=== PATIENT | male | born 1935 | race Caucasian/White ===

== ENCOUNTER 2019-12-25 10:44 | Inpatient (IN) ==
--- NOTE | 2019-12-25 11:14 | Emergency Department Note ---
HPI General Chief complaint: Shortness of Breath/Dyspnea Stated complaint: Short of breath Time Seen by Provider: 12/25/19 11:02 Source: patient Mode of arrival: ambulatory Limitations: no limitations History of Present Illness HPI Narrative: Narrative: 84-year old patient presenting with chief complaint of dyspnea. Patient's dyspnea arose over the course of past 5 days. Patient with associated symptoms of cough, sputum, gradual progression, orthopnea, however denies fever. Past medical history is significant for COPD/cardiovascular disease/CHF/obesity, deconditioning. This patient's dyspnea was/not exacerbated by exertion within 50-100 feet of walking or several minutes of exercise. Also was associated with a nocturnal component. Symptoms are continuous. Additional associated symptoms such as cough, sputum production, nasal congestion, chest pain, peripheral edema, joint swelling, muscle weakness were also inquired. Patient primarily with dyspnea sensation of air hunger/sensation of suffocation. Related Data Previous Rx's Medication Instructions Recorded warfarin 5 mg tablet See Rx Instructions PO QMWF #60 tab 08/12/19 diltiazem HCl 120 mg 240 mg PO QDAY #180 cap 08/25/19 capsule,extended release 24 hr furosemide 80 mg tablet 40 mg PO QDAY #45 tab 08/25/19 lisinopril 5 mg tablet 5 mg PO QDAY #90 tab 08/25/19 potassium chloride 10 mEq 20 meq PO QDAY #180 tab 08/25/19 tablet,extended release trazodone 50 mg tablet 150 mg PO QHS PRN #270 tab 08/25/19 digoxin 250 mcg (0.25 mg) tablet See Rx Instructions .ROUTE 10/01/19 .COMPLEX #68 tab pravastatin 40 mg tablet See Rx Instructions .ROUTE 10/01/19 .COMPLEX #23 tab allopurinol 100 mg tablet 100 mg PO QDAY #90 tab 11/25/19 prednisone 5 mg tablet See Rx Instructions .ROUTE 12/16/19 .COMPLEX #135 tab Allergies Allergy/AdvReac Type Severity Reaction Status Date / Time No Known Drug Intolerances AdvReac Unknown Unknown Verified 12/11/19 09:30 Review of Systems ROS ROS Narrative: Narrative: All systems ED: reviewed and negative except as stated. PFSH Narrative Patient History Narrative: Narrative: Medical/Surgical/Family History All Active Problems (Updated 12/25/19 @ 12:35 by Shar Ricks MD) Pneumonia (Acute) Long-term use of high-risk medication (Acute) detention systemic 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 (Acute) Inflammatory arthropathy (Acute) Hyperuricemia (Acute) Rheumatoid factor negative (Acute) LOUISE positive (Acute) CRP elevated (Acute) Polyarthralgia (Acute) Aortic stenosis (Chronic) Colon polyp (Chronic) Encounter for Health Maintenance Examination in Adult (Chronic) History of surgery (Acute) History of right knee surgery (Acute) History of colonoscopy (Acute) History of cardiac catheterization (Acute) History of angioplasty (Acute) Weight loss (Acute) History of tobacco use (Chronic) Peripheral neuropathy (Acute) Myocardial infarction, old (Acute) Ischemic heart disease, chronic (Chronic) Hypertension (Chronic) Hyperlipidemia (Chronic) Gout (Chronic) Gallstones without obstruction of gallbladder (Chronic) Edema (Chronic) DM type 2 (diabetes mellitus, type 2) (Chronic) Degenerative arthritis (Chronic) Colon polyps (Acute) Closed fracture (Acute) Atrial flutter (Chronic) Atrial fibrillation (Chronic) Anticoagulant long-term use (Acute) Anticoagulant long-term use (Chronic) Medical History (Updated 12/25/19 @ 12:35 by Shar Ricks MD) LOUISE positive (Acute) Anticoagulant long-term use (Chronic) 03/21/2013. Anticoagulant use; chronic Anticoagulant long-term use (Acute) Anticoagulation syndrome. Chronic. Extensive cardiology review with echo an d cardiolite in April of 2010. Last review with Dr. Olsen in April of 2011. Atrial fibrillation (Chronic) 04/11/2013 Atrial flutter (Chronic) Cardioverted in 2004 with recurrence of atrial fibrillation/flutter in [place], relegated to rate control and chronic anticoagulation; extensive ca rdiology review with echo and cardiolite in April of 2010, last review with Dr. Olsen in April of 2011. Closed fracture (Acute) Cervical vetebral fracture; closed. Previous traumatic C2 fracture in November of 2008, followed to stabilizaton Colon polyps (Acute) 2007 hyperplastic polyp. 05/16/12 colonoscopy -- Dr. Howard -- tubular adenomas. 5-year sequence. CRP elevated (Acute) Degenerative arthritis (Chronic) Most symptomatic in left knee 04/2012 DM type 2 (diabetes mellitus, type 2) (Chronic) Adult onset non insulin dependent diabetes. Metformin; mild peripheral neuropathy, taper off med in lieu of age and risk for complications with recent A1C of 5.4. Edema (Chronic) Encounter for Health Maintenance Examination in Adult (Chronic) Gallstones without obstruction of gallbladder (Chronic) Asymptomatic gallstones on ultrasound in 2006 Gout (Chronic) 10/10/2013 History of tobacco use (Chronic) Quit in 1985. Last chest x-ray in [place], does not require routine screening; minimal oral tobacco use - recounseled in this regard. Hyperlipidemia (Chronic) Pravachol Hypertension (Chronic) Hyperuricemia (Acute) Inflammatory arthropathy (Acute) Ischemic heart disease, chronic (Chronic) With distant history of inferior myocardial infarction and angioplasty//cardiolyte 09/2015 roasterman systemic 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 (Acute) Long-term use of high-risk medication (Acute) Myocardial infarction, old (Acute) Distant history of Peripheral neuropathy (Acute) Mild Polyarthralgia (Acute) Rheumatoid factor negative (Acute) Weight loss (Acute) 53 pound purposeful weight loss as of 04/08/12 Surgical History History of angioplasty (Acute) 1985 History of cardiac catheterization (Acute) Evidence on a distant catheterization of a 90% stenosis of a small diagonal branch of the left anterior descending History of colonoscopy (Acute) 05/16/12. 2007 hyperplastic polyp. 05/16/12 Colonoscopy -- Dr. Howard -- tubular adenomas. 5-year sequence History of right knee surgery (Acute) 11/2007 History of surgery (Acute) 1985; stent placement Family History Sister Malignant neoplasm of breast 2 sisters had breast cancer Social History Smoking Status: Former smoker Alcohol Intake Frequency: holiday/special occasion only Substance Use: does not use Exam Narrative Narrative: Narrative: Vital signs and evaluated for evidence of hypoxia which he has on initial presentation; he does not have hemodynamic compromise specifically tachycardia/hypotension General: Alert, interactive, appropriate Head: Atraumatic, normocephalic Eyes: Extraocular movements intact, sclera anicteric, no conjunctival injection Ears: Pinnae normal, no discharge Mouth: Oral mucosa moist, no acute swelling or evidence of infection Nares: No nasal discharge, patent bilaterally Neck: Trachea midline, full range of motion Chest: Symmetrical chest wall rise, breathing normally; patient does have tachypnea feels dyspneic with any exertion Cardiovascular: Patient with excellent perfusion to the extremities; without tachycardia Extremities: Full range of motion joints, no obvious deformities Neuro: Alert, oriented x3, cranial nerves II through XII grossly intact, patient without lateralizing findings such as weakness, or abnormal reflexes Psychiatric: Normal affect, normal mood General Limitations: no limitations Course Vital Signs Vital signs: Vital Signs Temperature 97.3 F 12/25/19 10:46 Pulse Rate 78 12/25/19 10:46 Respiratory Rate 18 12/25/19 10:46 Blood Pressure 142/71 12/25/19 10:46 Pulse Oximetry (%) 91 12/25/19 10:46 Temperature 97.7 F 12/26/19 00:30 Pulse Rate 58 L 12/26/19 00:30 Respiratory Rate 16 12/26/19 00:30 Blood Pressure 119/52 12/26/19 00:30 Pulse Oximetry (%) 92 12/26/19 00:30 [facility] MDM Narrative Medical decision making narrative: Narrative: Acute dyspnea differential diagnosis considered in this case included HI, heart failure, cardiac tamponade, bronchospasm, pulmonary embolism, pneumothorax, pneumonia or infection, and upper airway obstruction. After review of chart and patient history/physical exam/labs as well as imaging the differential diagnosis addressed was acute hypoxic respiratory failure, COPD exacerbation, pneumonia, sepsis, pulmonary edema, pneumothorax, metabolic acidosis, acute respiratory distress syndrome, panic attack, airflow obstruction, restrictive lung disease, aspiration, congestive heart failure, hypercapnia, influenza, bronchitis, upper respiratory infection, pulmonary embolism, cardiac tamponade, valvular obstruction, HI/ACS, and arrhythmia in my medical opinion this patient has dyspnea that reasonably does require admission to the hospital. Patient with hypoxia on presentation requiring 2 L of oxygen to maintain his sats. Patient with profound dyspnea with any exertion. Patient does have elevation of his BNP however his chest x-ray and white count suggest pneumonia. Blood cultures and Rocephin are provided did not give him significant fluid secondary to elevated BNP and concern for congestive heart failure. Lab Data Result diagrams: 12/25/19 11:03 12/25/19 11:11 Labs: Lab Results 12/25/19 12/25/19 12/25/19 Range/Units 11:03 11:11 11:11 WBC 12.0 H (4.5-11.0) K/mcL RBC 4.04 L (4.50-5.90) M/mcL Hgb 13.9 (13.5-16.5) g/dL Hct 41.2 (41.0-55.0) % MCV 102.0 H (80.0-100.0) fL MCH 34.4 H (26.0-34.0) pg MCHC 33.7 (31.0-36.0) g/dL RDW 15.8 H (11.5-14.5) % Plt Count 139 L (140-440) K/mcL MPV 9.0 (7.4-10.4) fL Neut % (Auto) 90.8 H (38.0-78.0) % Lymph % (Auto) 4.4 L (15.0-49.0) % Bowie % (Auto) 3.7 (1.0-12.0) % Eos % (Auto) 0.3 (0.0-7.0) % Baso % (Auto) 0.8 (0.0-2.0) % Lymph # (Auto) 0.53 L (1.50-4.80) K/mcL Bowie # (Auto) 0.44 (0.10-0.90) K/mcL Eos # (Auto) 0.03 (0.00-0.70) K/mcL Baso # (Auto) 0.09 (0.00-0.20) K/mcL Absolute Neutrophils 10.89 H (1.80-8.00) K/mcL PT (11.9-14.5) sec INR (0.9-1.1) ABG Methemoglobin (0.4-1.5) % VBG pH (7.32-7.42) U VBG pCO2 (41.0-51.0) mmHg VBG pO2 (25.0-40.0) mmHg VBG HCO3 (24.0-28.0) mmol/L VBG Total CO2 (25.0-29.0) mmol/L VBG O2 Saturation (40.0-70.0) % VBG Base Excess (-2-3) VBG Lactic Acid 1.0 (0.5-2.0) mmol/L Carboxyhemoglobin (0.0-1.5) % THgb Total Hemoglobin (13.5-16.5) gm/Dl Sodium 135 (133-145) mmol/L Potassium 4.7 (3.3-5.1) mmol/L Chloride 98 (96-108) mmol/L Carbon Dioxide 24 (22-30) mmol/L Anion Gap 13.0 (8.0-16.0) BUN 30 H (8-23) mg/dL Creatinine 1.2 (0.7-1.2) mg/dL GFR Calculation 56 Glucose 248 H (70-105) mg/dL Calcium 9.2 (8.6-10.4) mg/dL Total Bilirubin 0.8 (0.1-1.0) mg/dL AST 26 (<40) U/L ALT 20 (<40) U/L Alkaline Phosphatase 56 (39-117) U/L Troponin T (<0.03) ng/mL NT-Pro-B Natriuret Pep 2177.0 H (<450.0) pg/mL Total Protein 7.3 (5.9-8.4) gm/dL Albumin 4.4 (3.2-5.2) gm/dL Globulin 2.9 (2.2-3.7) gm/dL Albumin/Globulin Ratio 1.5 (1.0-2.3) Procalcitonin (<0.10) ng/mL Digoxin ng/mL SARS-CoV-2 (PCR) (Negative) 12/25/19 12/25/19 12/25/19 Range/Units 11:11 11:11 11:11 WBC (4.5-11.0) K/mcL RBC (4.50-5.90) M/mcL Hgb (13.5-16.5) g/dL Hct (41.0-55.0) % MCV (80.0-100.0) fL MCH (26.0-34.0) pg MCHC (31.0-36.0) g/dL RDW (11.5-14.5) % Plt Count (140-440) K/mcL MPV (7.4-10.4) fL Neut % (Auto) (38.0-78.0) % Lymph % (Auto) (15.0-49.0) % Bowie % (Auto) (1.0-12.0) % Eos % (Auto) (0.0-7.0) % Baso % (Auto) (0.0-2.0) % Lymph # (Auto) (1.50-4.80) K/mcL Bowie # (Auto) (0.10-0.90) K/mcL Eos # (Auto) (0.00-0.70) K/mcL Baso # (Auto) (0.00-0.20) K/mcL Absolute Neutrophils (1.80-8.00) K/mcL PT (11.9-14.5) sec INR (0.9-1.1) ABG Methemoglobin 0.1 L (0.4-1.5) % VBG pH 7.42 (7.32-7.42) U VBG pCO2 40.8 L (41.0-51.0) mmHg VBG pO2 166.9 H (25.0-40.0) mmHg VBG HCO3 25.6 (24.0-28.0) mmol/L VBG Total CO2 26.9 (25.0-29.0) mmol/L VBG O2 Saturation 91.7 H (40.0-70.0) % VBG Base Excess 1 (-2-3) VBG Lactic Acid (0.5-2.0) mmol/L Carboxyhemoglobin 7.3 H (0.0-1.5) % THgb Total Hemoglobin 13.7 (13.5-16.5) gm/Dl Sodium (133-145) mmol/L Potassium (3.3-5.1) mmol/L Chloride (96-108) mmol/L Carbon Dioxide (22-30) mmol/L Anion Gap (8.0-16.0) BUN (8-23) mg/dL Creatinine (0.7-1.2) mg/dL GFR Calculation Glucose (70-105) mg/dL Calcium (8.6-10.4) mg/dL Total Bilirubin (0.1-1.0) mg/dL AST (<40) U/L ALT (<40) U/L Alkaline Phosphatase (39-117) U/L Troponin T < 0.01 (<0.03) ng/mL NT-Pro-B Natriuret Pep (<450.0) pg/mL Total Protein (5.9-8.4) gm/dL Albumin (3.2-5.2) gm/dL Globulin (2.2-3.7) gm/dL Albumin/Globulin Ratio (1.0-2.3) Procalcitonin 0.07 (<0.10) ng/mL Digoxin ng/mL SARS-CoV-2 (PCR) (Negative) 12/25/19 12/25/19 12/25/19 Range/Units 11:11 12:35 13:07 WBC (4.5-11.0) K/mcL RBC (4.50-5.90) M/mcL Hgb (13.5-16.5) g/dL Hct (41.0-55.0) % MCV (80.0-100.0) fL MCH (26.0-34.0) pg MCHC (31.0-36.0) g/dL RDW (11.5-14.5) % Plt Count (140-440) K/mcL MPV (7.4-10.4) fL Neut % (Auto) (38.0-78.0) % Lymph % (Auto) (15.0-49.0) % Bowie % (Auto) (1.0-12.0) % Eos % (Auto) (0.0-7.0) % Baso % (Auto) (0.0-2.0) % Lymph # (Auto) (1.50-4.80) K/mcL Bowie # (Auto) (0.10-0.90) K/mcL Eos # (Auto) (0.00-0.70) K/mcL Baso # (Auto) (0.00-0.20) K/mcL Absolute Neutrophils (1.80-8.00) K/mcL PT 21.5 H (11.9-14.5) sec INR 1.9 H (0.9-1.1) ABG Methemoglobin (0.4-1.5) % VBG pH (7.32-7.42) U VBG pCO2 (41.0-51.0) mmHg VBG pO2 (25.0-40.0) mmHg VBG HCO3 (24.0-28.0) mmol/L VBG Total CO2 (25.0-29.0) mmol/L VBG O2 Saturation (40.0-70.0) % VBG Base Excess (-2-3) VBG Lactic Acid (0.5-2.0) mmol/L Carboxyhemoglobin (0.0-1.5) % THgb Total Hemoglobin (13.5-16.5) gm/Dl Sodium (133-145) mmol/L Potassium (3.3-5.1) mmol/L Chloride (96-108) mmol/L Carbon Dioxide (22-30) mmol/L Anion Gap (8.0-16.0) BUN (8-23) mg/dL Creatinine (0.7-1.2) mg/dL GFR Calculation Glucose (70-105) mg/dL Calcium (8.6-10.4) mg/dL Total Bilirubin (0.1-1.0) mg/dL AST (<40) U/L ALT (<40) U/L Alkaline Phosphatase (39-117) U/L Troponin T (<0.03) ng/mL NT-Pro-B Natriuret Pep (<450.0) pg/mL Total Protein (5.9-8.4) gm/dL Albumin (3.2-5.2) gm/dL Globulin (2.2-3.7) gm/dL Albumin/Globulin Ratio (1.0-2.3) Procalcitonin (<0.10) ng/mL Digoxin 1.3 ng/mL SARS-CoV-2 (PCR) Negative (Negative) Discharge Plan Patient/Caregiver Discharge Instructions Pt seen by DEPENDENCY CASE MANAGER/PA only: No Clinical Impression: Pneumonia Patient Disposition: Xfer As Inpt ([facility]) Condition: Serious Discharge Date/Time: 12/25/19 15:07 Discharge Location: [facility]
[2019-12-25 11:41] LABS: Basophils # (Auto) 0.09 K/mcL (0.00-0.20); Basophils % (Auto) 0.8 % (0.0-2.0); Eosinophils # (Auto) 0.03 K/mcL (0.00-0.70); Eosinophils % (Auto) 0.3 % (0.0-7.0); Hematocrit 41.2 % (41.0-55.0); Hemoglobin 13.9 g/dL (13.5-16.5); Lymphocytes # (Auto) 0.53 K/mcL (1.50-4.80); Lymphocytes % (Auto) 4.4 % (15.0-49.0); Mean Corpuscular HGB Conc 33.7 g/dL (31.0-36.0); Monocytes # (Auto) 0.44 K/mcL (0.10-0.90); Monocytes % (Auto) 3.7 % (1.0-12.0); Neutrophils % (Auto) 90.8 % (38.0-78.0); Platelet Count 139 K/mcL (140-440); RBC 4.04 M/mcL (4.50-5.90); Red Cell Distribution Width 15.8 % (11.5-14.5)
--- NOTE | 2019-12-25 11:42 | XRay Report ---
CLINICAL INFORMATION: CP/dyspnea COMPARISON: None. FINDINGS: Heart is moderately enlarged. Mediastinum is normal. Pulmonary vessels are normal for technique. Moderate right basilar infiltrate appreciated. There is also a moderate patchy infiltrate in the left midlung and base. Small right pleural effusion noted. IMPRESSION: Moderate right basilar infiltrate. Moderate patchy infiltrate left midlung and base. Small right pleural effusion Interpreted and Authenticated by: Manuel Rm 12/25/19
[2019-12-25 11:44] LABS: ABG Methemoglobin 0.1 % (0.4-1.5); Total Hemoglobin 13.7 gm/Dl (13.5-16.5); VBG Base Excess 1 (-2-3); VBG HCO3 25.6 mmol/L (24.0-28.0); VBG Oxygen Saturation 91.7 % (40.0-70.0); VBG PCO2 40.8 mmHg (41.0-51.0); VBG PH 7.42 U (7.32-7.42); VBG PO2 166.9 mmHg (25.0-40.0); VBG Total CO2 26.9 mmol/L (25.0-29.0)
[2019-12-25 12:10] LABS: ALT/SGPT 20 U/L (<40); AST/SGOT 26 U/L (<40); Albumin 4.4 gm/dL (3.2-5.2); Albumin/Globulin Ratio 1.5 (1.0-2.3); Alkaline Phosphatase 56 U/L (39-117); Bilirubin,Total 0.8 mg/dL (0.1-1.0); Blood Urea Nitrogen 30 mg/dL (8-23); Calcium 9.2 mg/dL (8.6-10.4); Carbon Dioxide 24 mmol/L (22-30); Chloride 98 mmol/L (96-108); Globulin 2.9 gm/dL (2.2-3.7); Glomerular Filtration Rate 56; Glucose 248 mg/dL (70-105)
[2019-12-25] MEDS ORDERED: cefTRIAXone 2 GM VIAL IV ONE (12:30)
--- NOTE | 2019-12-25 13:29 | Internal Med History&Physical ---
HPI History of Present Illness Patient information: Note initiated : 12/25/19 at 1:21 pm Service Date, if different from initiated Date: [] Patient: Shelby Ruff a 84 y/o M admitted on for Short of breath. Chief Complaint: [] History of present illness: Mr. Ruff is a 84 year old M Presents to the ED with shortness of breath and fatigue. Patient states that Sunday he was feeling fine and then noticed on Sunday when he was helping some friends dress a deer that he just felt fatigued and opted to let them dress the deer. And then he started developing shortness of breath. Denies any cough fevers or chills. He has just been feeling really weak and tired and the shortness of breath although he feels it has empirically gotten worse over single day been pretty consistent and has not gotten a better and thus today he presented to the ED. In the ED was found of a mild leukocytosis and oxygen saturation low 80s on room air. Chest x-ray with bilateral infiltrate worse on the right. Covid pending. Started on prednisone several months ago for gout flare and is tapered down to 7.5 daily with . Review of Systems: Pertinent positives as above. Denies headache/fever/chills/nausea/vomiting/chest or abdominal pain//diarrhea. 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) Inflammatory arthropathy (Acute) Hyperuricemia (Acute) Rheumatoid factor negative (Acute) LOUISE positive (Acute) CRP elevated (Acute) Polyarthralgia (Acute) Aortic stenosis (Chronic) Colon polyp (Chronic) Encounter for Health Maintenance Examination in Adult (Chronic) History of surgery (Acute) History of right knee surgery (Acute) History of colonoscopy (Acute) History of cardiac catheterization (Acute) History of angioplasty (Acute) Weight loss (Acute) History of tobacco use (Chronic) Peripheral neuropathy (Acute) Myocardial infarction, old (Acute) Ischemic heart disease, chronic (Chronic) Hypertension (Chronic) Hyperlipidemia (Chronic) Gout (Chronic) Gallstones without obstruction of gallbladder (Chronic) Edema (Chronic) DM type 2 (diabetes mellitus, type 2) (Chronic) Degenerative arthritis (Chronic) Colon polyps (Acute) Closed fracture (Acute) Atrial flutter (Chronic) Atrial fibrillation (Chronic) Anticoagulant long-term use (Acute) Anticoagulant long-term use (Chronic) Medical History (Updated 12/25/19 @ 12:35 by Shar Ricks MD) LOUISE positive (Acute) Anticoagulant long-term use (Chronic) 03/21/2013. Anticoagulant use; chronic Anticoagulant long-term use (Acute) Anticoagulation syndrome. Chronic. Extensive cardiology review with echo and cardiolite in April of 2010. Last review with Dr. Olsen in April of 2011. Atrial fibrillation (Chronic) 04/11/2013 Atrial flutter (Chronic) Cardioverted in 2004 with recurrence of atrial fibrillation/flutter in [place], relegated to rate control and chronic anticoagulation; extensive cardiology review with echo and cardiolite in April of 2010, last review with Dr. Olsen in April of 2011. Closed fracture (Acute) Cervical vetebral fracture; closed. Previous traumatic C2 fracture in November of 2008, followed to stabilizaton Colon polyps (Acute) 2007 hyperplastic polyp. 05/16/12 colonoscopy -- Dr. Howard -- tubular adenomas. 5-year sequence. CRP elevated (Acute) Degenerative arthritis (Chronic) Most symptomatic in left knee 04/2012 DM type 2 (diabetes mellitus, type 2) (Chronic) Adult onset non insulin dependent diabetes. Metformin; mild peripheral neuropathy, taper off med in lieu of age and risk for complications with recent A1C of 5.4. Edema (Chronic) Encounter for Health Maintenance Examination in Adult (Chronic) Gallstones without obstruction of gallbladder (Chronic) Asymptomatic gallstones on ultrasound in 2006 Gout (Chronic) 10/10/2013 History of tobacco use (Chronic) Quit in 1985. Last chest x-ray in [place], does not require routine screening; minimal oral tobacco use - recounseled in this regard. 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 2007 hyperplastic polyp. 05/16/12 Colonoscopy -- Dr. Howard -- tubular adenomas. 5-year sequence History of right knee surgery (Acute) 11/2007 History of surgery (Acute) 1985; stent placement Family History Sister Malignant neoplasm of breast 2 sisters had breast cancer Social History household members: spouse housing: house marital status: occupational status: retired occupation: [employer] smoking status: Former smoker alcohol intake frequency: holiday/special occasion only substance use type: does not use MEDS/ALLERGIES Home Medications and Allergies Home Medications Medication Instructions Recorded Confirmed Type tizanidine 4 mg tablet 4 mg PO Q8H PRN #30 tab 08/06/19 12/25/19 Rx warfarin 5 mg tablet See Rx Instructions PO QMWF #60 tab 08/12/19 12/25/19 Rx diltiazem HCl 120 mg 240 mg PO QDAY #180 cap 08/25/19 12/25/19 Rx capsule,extended release 24 hr furosemide 80 mg tablet 40 mg PO QDAY #45 tab 08/25/19 12/25/19 Rx lisinopril 5 mg tablet 5 mg PO QDAY #90 tab 08/25/19 12/25/19 Rx potassium chloride 10 mEq 20 meq PO QDAY #180 tab 08/25/19 12/25/19 Rx tablet,extended release trazodone 50 mg tablet 150 mg PO QHS PRN #270 tab 08/25/19 12/25/19 Rx digoxin 250 mcg (0.25 mg) tablet See Rx Instructions .ROUTE 10/01/19 12/25/19 Rx .COMPLEX #68 tab pravastatin 40 mg tablet See Rx Instructions .ROUTE 10/01/19 12/25/19 Rx .COMPLEX #23 tab allopurinol 100 mg tablet 100 mg PO QDAY #90 tab 11/25/19 12/25/19 Rx prednisone 5 mg tablet See Rx Instructions .ROUTE 12/16/19 12/25/19 Rx .COMPLEX #135 tab Allergies Allergy/AdvReac Type Severity Reaction Status Date / Time No Known Drug Intolerances AdvReac Unknown Unknown Verified 12/11/19 09:30 EXAM Constitutional Vitals: Temp Pulse Resp BP Pulse Ox 97.3 F 69 18 123/62 95 12/25/19 10:46 12/25/19 12:42 12/25/19 12:42 12/25/19 12:42 12/25/19 12:42 Exam: General: Alert, Awake, No acute Distress Eyes/N/T: EOMI, PERRL, Head/Neck: neck supple, normocephalic atraumatic CV: Regular with occasional irregularity 3/6SM Pulm: Clear b/l, no wheezing/rhonchi/rales Abd: soft, nontender, +BS x4 Ext: no clubbing/cyanosis, 1-2+ b/l LE chronic edema Neuro: Alert, no focal deficits, moves all extremities, CN 2-12 grossly intact, symmetrical strength b/l upper/lower, sensations intact b/l upper/lower Skin: warm/dry DATA Data Completed and Pending Labs: Labs from last 24 hours 12/25/19 12/25/19 12/25/19 13:07 12:35 11:11 WBC RBC Hgb Hct MCV MCH MCHC RDW Plt Count MPV Neut % (Auto) Lymph % (Auto) [place] % (Auto) Eos % (Auto) Baso % (Auto) Lymph # (Auto) [place] # (Auto) Eos # (Auto) Baso # (Auto) Absolute Neutrophils PT Pending INR Pending ABG Methemoglobin VBG pH VBG pCO2 VBG pO2 VBG HCO3 VBG Total CO2 VBG O2 Saturation VBG Base Excess VBG Lactic Acid Carboxyhemoglobin Total Hemoglobin Sodium Potassium Chloride Carbon Dioxide Anion Gap BUN Creatinine GFR Calculation Glucose Calcium Total Bilirubin AST ALT Alkaline Phosphatase Troponin T NT-Pro-B Natriuret Pep Total Protein Albumin Globulin Albumin/Globulin Ratio Procalcitonin Digoxin Pending Digoxin Dose Pending Digox Last Dose Time Pending SARS-CoV-2 (PCR) Negative 12/25/19 12/25/1912/24/20 11:11 11:11 11:11 WBC RBC Hgb Hct MCV MCH MCHC RDW Plt Count MPV Neut % (Auto) Lymph % (Auto) [place] % (Auto) Eos % (Auto) Baso % (Auto) Lymph # (Auto) [place] # (Auto) Eos # (Auto) Baso # (Auto) Absolute Neutrophils PT INR ABG Methemoglobin 0.1 L VBG pH 7.42 VBG pCO2 40.8 L VBG pO2 166.9 H VBG HCO3 25.6 VBG Total CO2 26.9 VBG O2 Saturation 91.7 H VBG Base Excess 1 VBG Lactic Acid Carboxyhemoglobin 7.3 H Total Hemoglobin 13.7 Sodium Potassium Chloride Carbon Dioxide Anion Gap BUN Creatinine GFR Calculation Glucose Calcium Total Bilirubin AST ALT Alkaline Phosphatase Troponin T < 0.01 NT-Pro-B Natriuret Pep Total Protein Albumin Globulin Albumin/Globulin Ratio Procalcitonin Pending Digoxin Digoxin Dose Digox Last Dose Time SARS-CoV-2 (PCR) 12/25/19 12/25/19 12/25/19 11:11 11:11 11:03 WBC 12.0 H RBC 4.04 L Hgb 13.9 Hct 41.2 MCV 102.0 H MCH 34.4 H MCHC 33.7 RDW 15.8 H Plt Count 139 L MPV 9.0 Neut % (Auto) 90.8 H Lymph % (Auto) 4.4 L [place] % (Auto) 3.7 Eos % (Auto) 0.3 Baso % (Auto) 0.8 Lymph # (Auto) 0.53 L [place] # (Auto) 0.44 Eos # (Auto) 0.03 Baso # (Auto) 0.09 Absolute Neutrophils 10.89 H PT INR ABG Methemoglobin VBG pH VBG pCO2 VBG pO2 VBG HCO3 VBG Total CO2 VBG O2 Saturation VBG Base Excess VBG Lactic Acid 1.0 Carboxyhemoglobin Total Hemoglobin Sodium 135 Potassium 4.7 Chloride 98 Carbon Dioxide 24 Anion Gap 13.0 BUN 30 H Creatinine 1.2 GFR Calculation 56 Glucose 248 H Calcium 9.2 Total Bilirubin 0.8 AST 26 ALT 20 Alkaline Phosphatase 56 Troponin T NT-Pro-B Natriuret Pep 2177.0 H Total Protein 7.3 Albumin 4.4 Globulin 2.9 Albumin/Globulin Ratio 1.5 Procalcitonin Digoxin Digoxin Dose Digox Last Dose Time SARS-CoV-2 (PCR) A/P Narrative A/P Narrative: A: *Pneumonia: -covid neg *Acute hypoxic respiratory failure: -2L *DM: Diet controlled *Chronic atrial fibrillation: On diltiazem digoxin and warfarin *HTN: On lisinopril/Lasix *h/o CAD w/angioplasty: *Anemia, chronic microcytic: *Obesity: *h/o gout: on allopurinol and tapering dose of prednisone * P: -Rocephin/azithromycin -RVP/myco/strep pending -Pulmonary toilet, as needed nebs -O2 support and wean as able -Continue home prednisone, SSI -Continue home digoxin and diltiazem and lisinopril - -B12/folate -PT OT -ppx: Warfarin per pharmacy DNI Time Spent With Patient Time: Total time spent is greater than 50% in coordination of care (as document ed) at patient's floor/unit and/or counseling patient:
[2019-12-25 13:42] LABS: INR 1.9 (0.9-1.1); Prothrombin Time 21.5 sec (11.9-14.5)
[2019-12-25 14:50] LABS: Digoxin 1.3 ng/mL
[2019-12-25] MEDS ORDERED: LACTULOSE 20 GM/30 ML ORAL.SOL PO PRN (15:37)
[2019-12-25] MEDS ORDERED: POLYETHYLENE GLYCOL 3350 17 GM PACKET PO PRN (15:37)
[2019-12-25] MEDS ORDERED: IPRATROPIUM/ALBUTEROL 3 ML AMPUL.NEB NEB ONE (15:37)
[2019-12-25] MEDS ORDERED: ONDANSETRON 4 MG/2 ML VIAL IV PRN (15:37)
[2019-12-25] MEDS ORDERED: POTASSIUM CHLORIDE 40 MEQ in DEXTROSE 5% IN WATER 500 ML IV PRN (15:37)
[2019-12-25] MEDS ORDERED: tiZANidine 4 MG TABLET PO PRN (15:37)
[2019-12-25] MEDS ORDERED: MAGNESIUM SULFATE 2 GM/50 ML BAG IV PRN (15:37)
[2019-12-25] MEDS ORDERED: ACETAMINOPHEN 325 MG TABLET PO PRN (15:37)
[2019-12-25] MEDS ORDERED: SENNOSIDES 1 TABLET PO PRN (15:37)
[2019-12-25] MEDS ORDERED: POTASSIUM CHLORIDE 20 MEQ TABLET PO PRN ×2 (15:37)
[2019-12-25] MEDS ORDERED: IPRATROPIUM/ALBUTEROL 3 ML AMPUL.NEB NEB PRN (15:37)
[2019-12-25] MEDS: 0.9 % SODIUM CHLORIDE 10 ML SYRINGE IV SCH ×2 (16:15→20:06)
[2019-12-25] MEDS: AZITHROMYCIN 500 MG in DEXTROSE 5% IN WATER 250 ML IV SCH (16:15)
[2019-12-25] MEDS: SIMVASTATIN 10 MG TABLET PO SCH ×2 (20:14→20:18)
[2019-12-25] MEDS: DOCUSATE SODIUM 100 MG CAPSULE PO SCH (20:14)
[2019-12-25] MEDS: traZODone HCL 50 MG TABLET PO PRN (20:24)
[2019-12-26] MEDS: 0.9 % SODIUM CHLORIDE 10 ML SYRINGE IV SCH ×3 (04:10→22:00)
[2019-12-26 06:48] LABS: Basophils # (Auto) 0.11 K/mcL (0.00-0.20); Basophils % (Auto) 1.1 % (0.0-2.0); Eosinophils # (Auto) 0.22 K/mcL (0.00-0.70); Eosinophils % (Auto) 2.1 % (0.0-7.0); Hematocrit 35.3 % (41.0-55.0); Hemoglobin 11.8 g/dL (13.5-16.5); Lymphocytes # (Auto) 1.84 K/mcL (1.50-4.80); Lymphocytes % (Auto) 17.9 % (15.0-49.0); Mean Cell Volume 103.2 fL (80.0-100.0); Mean Corpuscular HGB Conc 33.4 g/dL (31.0-36.0); Mean Platelet Volume 9.6 fL (7.4-10.4); Monocytes % (Auto) 5.8 % (1.0-12.0); Neutrophils % (Auto) 73.1 % (38.0-78.0); Platelet Count 116 K/mcL (140-440); RBC 3.42 M/mcL (4.50-5.90); Red Cell Distribution Width 15.9 % (11.5-14.5); WBC 10.3 K/mcL (4.5-11.0)
[2019-12-26 07:33] LABS: ALT/SGPT 15 U/L (<40); AST/SGOT 19 U/L (<40); Albumin 3.6 gm/dL (3.2-5.2); Albumin/Globulin Ratio 1.5 (1.0-2.3); Alkaline Phosphatase 39 U/L (39-117); Bilirubin,Direct < 0.2 mg/dL (<0.3); Bilirubin,Total 0.6 mg/dL (0.1-1.0); Blood Urea Nitrogen 24 mg/dL (8-23); Calcium 8.7 mg/dL (8.6-10.4); Carbon Dioxide 29 mmol/L (22-30); Chloride 100 mmol/L (96-108); Globulin 2.4 gm/dL (2.2-3.7); Glomerular Filtration Rate 69; Glucose 134 mg/dL (70-105); Lactate Dehydrogenase 226 U/L (135-225); Phosphorous 3.4 mg/dL (2.5-4.5); Triglycerides 84 mg/dL (<150); Uric Acid 6.7 mg/dL (2.5-8.0)
[2019-12-26 07:45] LABS: INR 2.3 (0.9-1.1); Prothrombin Time 25.6 sec (11.9-14.5)
[2019-12-26] MEDS: FUROSEMIDE 40 MG TABLET PO SCH (07:47)
[2019-12-26] MEDS: LISINOPRIL 5 MG TABLET PO SCH (07:47)
[2019-12-26] MEDS: DOCUSATE SODIUM 100 MG CAPSULE PO SCH ×2 (07:47→20:19)
[2019-12-26] MEDS: DILTIAZEM 240 MG CAP.XL.24H PO SCH (07:47)
[2019-12-26] MEDS: predniSONE 5 MG TABLET PO SCH (07:48)
[2019-12-26] MEDS: ALLOPURINOL 100 MG TABLET PO SCH (07:48)
[2019-12-26] MEDS: POTASSIUM CHLORIDE 10 MEQ TABLET PO SCH (07:48)
[2019-12-26] MEDS: cefTRIAXone 2 GM in DEXTROSE 5% IN WATER 50 ML IV SCH (07:52)
--- NOTE | 2019-12-26 07:53 | Internal Med Progress Note ---
SUBJECTIVE Subjective Patient information: Note initiated : 12/26/19 at 7:49 am Service Date, if different from initiated Date: [] Patient: Shelby Ruff a 84 y/o M admitted on 12/25/19 for Short of breath. Chief Complaint: [] Interval history: History of present illness: Mr. Ruff is a 84 year old M Presents to the ED with shortness of breath and fatigue. Patient states that Sunday he was feeling fine and then noticed on Sunday when he was helping some friends dress a deer that he just felt fatigued and opted to let them dress the deer. And then he started developing shortness of breath. Denies any cough fevers or chills. He has just been feeling really weak and tired and the shortness of breath although he feels it has empirically gotten worse over single day been pretty consistent and has not gotten a better and thus today he presented to the ED. In the ED was found of a mild leukocytosis and oxygen saturation low 80s on room air. Chest x-ray with bilateral infiltrate worse on the right. Covid pending. Started on prednisone several months ago for gout flare and is tapered down to 7.5 daily with . 12/25 Patient still requiring oxygen several liters but states he feels better today denies shortness of breath. Occasional cough. Leukocytosis improved. Review of Systems: denies headache/fever/chills/nausea/vomiting/chest or abdominal pain/diarrhea. Otherwise see above. Constitutional Vitals: Vital Signs Temp Pulse Resp BP Pulse Ox 97 F 71 20 113/59 92 12/26/19 04:00 12/26/19 04:00 12/26/19 04:00 12/26/19 04:00 12/26/19 04:00 Period Temp Pulse Resp BP Sys/Chang Pulse Ox Last 24 Hr 96 F-97.8 F 48-96 16-25 113-142/51-71 79-97 Intake and Output 12/25/19 12/26/19 12/26/19 21:59 05:59 13:59 Intake Total 670 420 Output Total 100 Balance 570 420 Weight 101.559 kg Intake & Output: Intake & Output 12/25/19 12/26/19 12/26/19 21:59 05:59 13:59 Intake Total 670 420 Output Total 100 Balance 570 420 Weight 101.559 kg Intake: IV 250 Zithromax 500 mg In Dextrose 5% 250 in Water 250 ml @ 250 mls/hr IV DAILY [facility] Rx#:[id number] Oral 420 420 Output: Void Amount 100 Other: Meal Dinner Percent of Meal Consumed 50% Feeding Ability Independent Urine Color Bright Yellow Urine Odor Normal # Voids 2 Exam: General: Alert, Awake, No acute Distress Eyes/N/T: EOMI, Head/Neck: neck supple, CV: Regular with occasional irregularity 3/6SM Pulm: right side diminished with rhonchi, no wheezing Abd: soft, nontender, +BS x4 Ext: no clubbing/cyanosis, 1-2+ b/l LE chronic edema Neuro: Alert, no focal deficits, moves all extremities, Skin: warm/dry OBJ DATA Labs CBC & Chem 7: 12/26/19 05:22 12/26/19 05:22 Labs: Abnormal Lab Results 12/26/19 12/26/19 12/26/19 05:22 05:22 05:22 WBC RBC 3.42 L Hgb 11.8 L Hct 35.3 L MCV 103.2 H MCH 34.5 H RDW 15.9 H Plt Count 116 L Neut % (Auto) Lymph % (Auto) Lymph # (Auto) Absolute Neutrophils PT 25.6 H INR 2.3 H ABG Methemoglobin VBG pCO2 VBG pO2 VBG O2 Saturation Carboxyhemoglobin Anion Gap 6.0 L BUN 24 H Glucose 134 H Lactate Dehydrogenase 226 H NT-Pro-B Natriuret Pep Vitamin B12 12/25/19 12/25/19 12/25/19 16:03 13:07 11:11 WBC RBC Hgb Hct MCV MCH RDW Plt Count Neut % (Auto) Lymph % (Auto) Lymph # (Auto) Absolute Neutrophils PT 21.5 H INR 1.9 H ABG Methemoglobin 0.1 L VBG pCO2 40.8 L VBG pO2 166.9 H VBG O2 Saturation 91.7 H Carboxyhemoglobin 7.3 H Anion Gap BUN Glucose Lactate Dehydrogenase NT-Pro-B Natriuret Pep Vitamin B12 1599.0 H 12/25/19 12/25/19 11:11 11:03 WBC 12.0 H RBC 4.04 L Hgb Hct MCV 102.0 H MCH 34.4 H RDW 15.8 H Plt Count 139 L Neut % (Auto) 90.8 H Lymph % (Auto) 4.4 L Lymph # (Auto) 0.53 L Absolute Neutrophils 10.89 H PT INR ABG Methemoglobin VBG pCO2 VBG pO2 VBG O2 Saturation Carboxyhemoglobin Anion Gap BUN 30 H Glucose 248 H Lactate Dehydrogenase NT-Pro-B Natriuret Pep 2177.0 H Vitamin B12 Meds: Medications Acetaminophen (Tylenol) 650 mg PO Q6HP PRN PRN Reason: PAIN/FEVER > 101 Albuterol/Ipratropium (Duoneb) 3 ml NEB Q4HP PRN PRN Reason: Shortness Of Breath Allopurinol (Zyloprim) 100 mg PO QDAY [facility] Digoxin (Lanoxin) 125 mcg PO Q48H [facility] Digoxin (Lanoxin) 250 mcg PO Q48H [facility] Diltiazem HCl (Cardizem Cd) 240 mg PO DAILY [facility] Docusate Sodium (Colace) 100 mg PO BID [facility] Last Admin: 12/25/19 20:14 Dose: 100 mg Documented by: Furosemide (Lasix) 40 mg PO DAILY [facility] Potassium Chloride 40 meq/ (Dextrose) 520 mls @ 130 mls/hr IV UD PRN PRN Reason: Potassium < 3 Magnesium Sulfate (Magnesium Sulfate) 2 gm in 50 mls @ 50 mls/hr IV UD PRN PRN Reason: Magnesium </= 1.6 Ceftriaxone Sodium 2 gm/ (Dextrose) 50 mls @ 100 mls/hr IV DAILY [facility]; Protocol Azithromycin 500 mg/ Dextrose 250 mls @ 250 mls/hr IV DAILY [facility]; Protocol Stop: 12/27/19 09:59 Last Infusion: 12/25/19 17:30 Dose: Infused Documented by: Lactulose (Cephulac) 20 gm PO DAILYP PRN PRN Reason: Constipation Lisinopril (Zestril) 5 mg PO QDAY [facility] Ondansetron HCl (Zofran) 4 mg IV Q4HP PRN PRN Reason: Nausea And Vomiting Polyethylene Glycol (Miralax) 17 gm PO DAILYP PRN PRN Reason: Constipation Potassium Chloride (Kdur) 20 meq PO QAMCC [facility] Potassium Chloride (Kdur) 40 meq PO UD PRN PRN Reason: Potssium is 3-3.5 Potassium Chloride (Kdur) 40 meq PO UD PRN PRN Reason: Potassium < 3 Prednisone (Prednisone) 7.5 mg PO [facility] Senna (Senokot) 2 tab PO DAILYP PRN PRN Reason: Constipation Simvastatin (Zocor) 5 mg PO HS [facility] Last Admin: 12/25/19 20:18 Dose: Not Given Documented by: Sodium Chloride (Saline Flush) 10 ml IV Q8 [facility] Last Admin: 12/26/19 04:10 Dose: 10 ml Documented by: Tizanidine HCl (Zanaflex) 4 mg PO Q8HP PRN PRN Reason: muscle spasticity Trazodone HCl (Desyrel) 150 mg PO HSP PRN PRN Reason: insomnia Last Admin: 12/25/19 20:24 Dose: 150 mg Documented by: Warfarin Sodium (Coumadin Per Pharmacy) 1 order PO [facility] [place] Interpretation ABG results: 12/25/19 11:11 ABG Methemoglobin 0.1 L VBG pH 7.42 VBG pCO2 40.8 L VBG pO2 166.9 H VBG HCO3 25.6 VBG Total CO2 26.9 VBG O2 Saturation 91.7 H VBG Base Excess 1 A/P Narrative A/P Narrative: A: *Pneumonia: -covid/strep/myco/rvp neg -Leukocytosis resolved. *Acute hypoxic respiratory failure: -2L *DM: Diet controlled *Chronic atrial fibrillation: On diltiazem digoxin and warfarin *HTN: On lisinopril/Lasix *h/o CAD w/angioplasty: *CKD II-III: *Anemia, chronic macrocytic: b12/folate ok *Obesity: *h/o gout: on allopurinol and tapering dose of prednisone * P: -Rocephin/azithromycin -Pulmonary toilet, as needed nebs -O2 support and wean as able -Continue home prednisone, SSI -Continue home digoxin/diltiazem/lisinopril - -PT OT -ppx: Warfarin per pharmacy DNI Time Spent With Patient Time: Total time spent is greater than 50% in coordination of care (as documented) at patient's floor/unit and/or counseling patient: QUALITY VTE Deep Vein Thrombosis/Pulmonary Embolism Present on Admission: No
[2019-12-26] MEDS: AZITHROMYCIN 500 MG in DEXTROSE 5% IN WATER 250 ML IV SCH (09:14)
[2019-12-26] MEDS ORDERED: WARFARIN 5 MG TABLET PO SCH (13:29)
[2019-12-26] MEDS ORDERED: WARFARIN 5 MG TABLET PO ONE (14:00)
[2019-12-26] MEDS ORDERED: DIGOXIN 125 MCG TABLET PO SCH (14:00)
[2019-12-26] MEDS: traZODone HCL 50 MG TABLET PO PRN (20:19)
[2019-12-26] MEDS: SIMVASTATIN 10 MG TABLET PO SCH (20:19)
[2019-12-27] MEDS: 0.9 % SODIUM CHLORIDE 10 ML SYRINGE IV SCH (04:13)
[2019-12-27 06:46] LABS: Basophils % (Auto) 0.9 % (0.0-2.0); Eosinophils # (Auto) 0.23 K/mcL (0.00-0.70); Eosinophils % (Auto) 2.1 % (0.0-7.0); Hematocrit 35.7 % (41.0-55.0); Lymphocytes # (Auto) 1.59 K/mcL (1.50-4.80); Lymphocytes % (Auto) 14.6 % (15.0-49.0); Mean Corpuscular HGB Conc 33.6 g/dL (31.0-36.0); Mean Platelet Volume 9.3 fL (7.4-10.4); Monocytes # (Auto) 0.67 K/mcL (0.10-0.90); Monocytes % (Auto) 6.2 % (1.0-12.0); Neutrophils % (Auto) 76.2 % (38.0-78.0); Platelet Count 124 K/mcL (140-440); Red Cell Distribution Width 15.6 % (11.5-14.5); WBC 10.9 K/mcL (4.5-11.0)
[2019-12-27 07:15] LABS: Blood Urea Nitrogen 22 mg/dL (8-23); Calcium 9.2 mg/dL (8.6-10.4); Carbon Dioxide 31 mmol/L (22-30); Chloride 98 mmol/L (96-108); Glomerular Filtration Rate 62; Glucose 151 mg/dL (70-105)
[2019-12-27 07:20] LABS: INR 2.5 (0.9-1.1); Prothrombin Time 27.1 sec (11.9-14.5)
[2019-12-27] MEDS: predniSONE 5 MG TABLET PO SCH (08:30)
[2019-12-27] MEDS: POTASSIUM CHLORIDE 10 MEQ TABLET PO SCH (08:30)
[2019-12-27] MEDS: ALLOPURINOL 100 MG TABLET PO SCH (08:31)
[2019-12-27] MEDS: FUROSEMIDE 40 MG TABLET PO SCH (08:31)
[2019-12-27] MEDS: LISINOPRIL 5 MG TABLET PO SCH (08:31)
[2019-12-27] MEDS: DILTIAZEM 240 MG CAP.XL.24H PO SCH (08:32)
[2019-12-27] MEDS: DOCUSATE SODIUM 100 MG CAPSULE PO SCH (08:38)
[2019-12-27] MEDS: AZITHROMYCIN 500 MG in DEXTROSE 5% IN WATER 250 ML IV SCH (09:50)
--- NOTE | 2019-12-27 10:05 | Discharge Summary ---
Discharge Provider Provider Patient information: Note initiated : 12/27/19 at 10:02 am Service Date, if different from initiated Date: [] Patient: Shelby Ruff a 84 y/o M admitted on 12/25/19 for Short of breath. discharge diagnosis *Community-acquired pneumonia:-covid neg, clinical improvement noted. 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 Patient states that Sunday he was feeling fine and then noticed on Sunday when he was helping some friends dress a deer that he just felt fatigued and opted to let them dress the deer. And then he started developing shortness of breath. Denies any cough fevers or chills. He has just been feeling really weak and tired and the shortness of breath although he feels it has empirically gotten worse over single day been pretty consistent and has not gotten a better and thus today he presented to the ED. In the ED was found of a mild leukocytosis and oxygen saturation low 80s on room air. Chest x-ray with bilateral infiltrate worse on the right. Covid pending. Started on prednisone several months ago for gout flare and is tapered down to 7.5 daily with . 12/26-patient doing remarkably better. Currently on room air. Ambulating. Denies shortness of breath. Denies fever chills. Discharging on oral antibiotics advised to follow-up with primary care physician. Date of admission: 12/25/19 15:06 Discharge date: 12/27/19 Primary care physician: Doug Hernandez M.D., F.A.A.F.P. Consults: 12/25/19 Consult to Physician [CONS] Stat Comment: Consulting Provider: Harlan Powers Reason For Exam: Physician to Consult Discharge Meds Discharge Medications Home Medications warfarin 5 mg tablet See Rx Instructions PO QMWF #60 tab 08/12/19 [Rx Confirmed 12/25/19 Last Taken 12/25/19 07:30] diltiazem HCl 120 mg capsule,extended release 24 hr 240 mg PO QDAY #180 cap 08/25/19 [Rx Confirmed 12/25/19 Last Taken 12/25/19 07:30] furosemide 80 mg tablet 40 mg PO QDAY #45 tab 08/25/19 [Rx Confirmed 12/25/19 Last Taken 12/25/19 07:30] lisinopril 5 mg tablet 5 mg PO QDAY #90 tab 08/25/19 [Rx Confirmed 12/25/19 Last Taken 12/25/19 07:30] potassium chloride 10 mEq tablet,extended release 20 meq PO QDAY #180 tab 08/25/19 [Rx Confirmed 12/25/19 Last Taken 12/25/19 07:30] trazodone 50 mg tablet 150 mg PO QHS PRN #270 tab 08/25/19 [Rx Confirmed 12/25/19 Last Taken 12/24/19 07:30] digoxin 250 mcg (0.25 mg) tablet See Rx Instructions .ROUTE .COMPLEX #68 tab 10/01/19 [Rx Confirmed 12/25/19 Last Taken 12/25/19 07:30] pravastatin 40 mg tablet See Rx Instructions .ROUTE .COMPLEX #23 tab 10/01/19 [Rx Confirmed 12/25/19 Last Taken Unknown] allopurinol 100 mg tablet 100 mg PO QDAY #90 tab 11/25/19 [Rx Confirmed 12/25/19 Last Taken 12/25/19 07:30] prednisone 5 mg tablet See Rx Instructions .ROUTE .COMPLEX #135 tab 12/16/19 [Rx Confirmed 12/25/19 Last Taken 12/25/19 07:30] azithromycin 500 mg PO QDAY 2 Days #2 tab 12/27/19 [Rx Last Taken Unknown] cefdinir 300 mg PO BID #10 cap 12/27/19 [Rx Last Taken Unknown] COURSE Hospital Course Hospital course: . Discharge diagnosis: , Time Spent with Patient Time attestation: Total time spent providing and/or coordinating discharge services: EXAM Constitutional Vitals: Temp Pulse Resp BP Pulse Ox 97.0 F 68 18 132/66 95 12/27/19 08:00 12/27/19 08:00 12/27/19 08:00 12/27/19 08:00 12/27/19 08:00 Discharge Data Data Completed and Pending Labs on day of discharge: Labs from last 24 hours 12/27/19 12/27/19 12/27/19 05:40 05:40 05:40 WBC 10.9 RBC 3.50 L Hgb 12.0 L Hct 35.7 L MCV 102.0 H MCH 34.3 H MCHC 33.6 RDW 15.6 H Plt Count 124 L MPV 9.3 Neut % (Auto) 76.2 Lymph % (Auto) 14.6 L [place] % (Auto) 6.2 Eos % (Auto) 2.1 Baso % (Auto) 0.9 Lymph # (Auto) 1.59 [place] # (Auto) 0.67 Eos # (Auto) 0.23 Baso # (Auto) 0.10 Absolute Neutrophils 8.28 H PT 27.1 H INR 2.5 H Sodium 136 Potassium 4.5 Chloride 98 Carbon Dioxide 31 H Anion Gap 7.0 L BUN 22 Creatinine 1.1 GFR Calculation 62 Glucose 151 H Calcium 9.2 Preliminary micro results at discharge 12/25/19 12:53 Blood Culture - Preliminary Blood 12/25/19 12:47 Blood Culture - Preliminary Blood Discharge Plan Patient/Caregiver Discharge Instructions Activity: increase activity as tolerated Diet: Regular Diet Prescriptions: New azithromycin 500 mg tablet 500 mg PO QDAY 2 Days Qty: 2 RF: 0 cefdinir 300 MG capsule 300 mg PO BID Qty: 10 RF: 0 Continued warfarin 5 mg tablet See Rx Instructions PO QMWF Qty: 60 RF: 4 diltiazem HCl [Cartia XT] 120 mg capsule,extended release 24hr 240 mg PO QDAY Qty: 180 RF: 4 trazodone 50 mg tablet 150 mg PO QHS PRN (Reason: insomnia) Qty: 270 RF: 4 furosemide [Lasix] 80 mg tablet 40 mg PO QDAY Qty: 45 RF: 4 lisinopril 5 mg tablet 5 mg PO QDAY Qty: 90 RF: 4 potassium chloride 10 mEq tablet extended release 20 meq PO QDAY Qty: 180 RF: 4 pravastatin 40 mg tablet See Rx Instructions .ROUTE .COMPLEX Qty: 23 RF: 6 digoxin 250 mcg (0.25 mg) tablet See Rx Instructions .ROUTE .COMPLEX Qty: 68 RF: 4 prednisone 5 mg tablet See Rx Instructions .ROUTE .COMPLEX Qty: 135 RF: 0 allopurinol 100 mg tablet 100 mg PO QDAY Qty: 90 RF: 3 Follow Up Plan Follow up with: Doug Hernandez MD, FAAFP [Primary Care Provider] - Patient Disposition: Home, Self-Care Prognosis: Serious Rehab Potential: Fair I certify that the patient requires SNF services: No Overall status at discharge: patient is back to baseline Discharge Orders: Discharge Order (Routine); Ordered 12/27/19 Ordered By: Woody RODRÍGUEZ VTE Deep Vein Thrombosis/Pulmonary Embolism Present on Admission: No
[2019-12-27] MEDS: cefTRIAXone 2 GM in DEXTROSE 5% IN WATER 50 ML IV SCH (11:00)
[2019-12-27] MEDS ORDERED: DIGOXIN 125 MCG TABLET PO SCH (14:00)
[2019-12-27] MEDS ORDERED: WARFARIN 2.5 MG TABLET PO ONE (14:00)
== END 2019-12-27 12:00 | disposition home or self-care (01) | DRG 193 ==
LOC: ED 10:44 → MEDSUR 15:06
PROVIDERS: ADMIT Internal Medicine; ATTEND Internal Medicine

== ENCOUNTER 2020-04-13 09:07 | Inpatient (IN) ==
[2020-04-13] MEDS ORDERED: ALBUTEROL SULFATE 2.5 MG/3 ML NEBULIZER NEB ONE (09:18)
[2020-04-13] MEDS ORDERED: methylPREDNISolone SOD SUCC 125 MG/2 ML VIAL IV ONE (09:18)
--- NOTE | 2020-04-13 09:21 | Emergency Department Note ---
SOB HPI General Chief Complaint: Shortness of Breath/Dyspnea Stated Complaint: SOB Time Seen by Provider: 04/13/20 09:12 Source: patient Mode of arrival: wheelchair History of Present Illness HPI Narrative: Narrative: Presents to room T5 for evaluation of shortness of breath. The patient does have a history of COPD, coronary artery disease, NH and atrial fibrillation. The patient reports that he has been increasing short of breath with cough with chest tightness progressively over the last week. He states his symptoms are made worse with any type of exertion. He denies any fevers or chills. No night sweats. Denies any lower extremity swelling or calf pain. Patient states that the symptoms were worse today prompting his visit to the emergency department. Related Data Previous Rx's Medication Instructions Recorded warfarin 5 mg tablet See Rx Instructions PO QMWF #60 tab 08/12/19 diltiazem HCl 120 mg 240 mg PO QDAY #180 cap 08/25/19 capsule,extended release 24 hr furosemide 80 mg tablet 40 mg PO QDAY #45 tab 08/25/19 lisinopril 5 mg tablet 5 mg PO QDAY #90 tab 08/25/19 potassium chloride 10 mEq 20 meq PO QDAY #180 tab 08/25/19 tablet,extended release trazodone 50 mg tablet 150 mg PO QHS PRN #270 tab 08/25/19 digoxin 250 mcg (0.25 mg) tablet See Rx Instructions .ROUTE 10/01/19 .COMPLEX #68 tab pravastatin 40 mg tablet See Rx Instructions .ROUTE 10/01/19 .COMPLEX #23 tab allopurinol 100 mg tablet 200 mg PO QDAY #180 tab 01/15/20 prednisone 5 mg tablet 5 mg PO QDAY #90 tab 03/31/20 Allergies Allergy/AdvReac Type Severity Reaction Status Date / Time No Known Drug Intolerances AdvReac Unknown Unknown Verified 04/13/20 09:25 Review of Systems ROS ROS Narrative: Narrative: All systems ED: reviewed and negative except as stated. 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) Inflammatory arthropathy (Acute) Hyperuricemia (Acute) Rheumatoid factor negative (Acute) LOUISE positive (Acute) CRP elevated (Acute) Polyarthralgia (Acute) Aortic stenosis (Chronic) Colon polyp (Chronic) Encounter for Health Maintenance Examination in Adult (Chronic) History of surgery (Acute) History of right knee surgery (Acute) History of colonoscopy (Acute) History of cardiac catheterization (Acute) History of angioplasty (Acute) Weight loss (Acute) History of tobacco use (Chronic) Peripheral neuropathy (Acute) Myocardial infarction, old (Acute) Ischemic heart disease, chronic (Chronic) Hypertension (Chronic) Hyperlipidemia (Chronic) Gout (Acute) Gallstones without obstruction of gallbladder (Chronic) Edema (Chronic) DM type 2 (diabetes mellitus, type 2) (Chronic) Degenerative arthritis (Chronic) Colon polyps (Acute) Closed fracture (Acute) Atrial flutter (Chronic) Atrial fibrillation (Chronic) Anticoagulant long-term use (Acute) Anticoagulant long-term use (Chronic) Medical History (Updated 04/13/20 @ 13:09 by Sonu Machuca MD) LOUISE positive Anticoagulant long-term use 03/21/2013. Anticoagulant use; chronic Anticoagulant long-term use Anticoagulation syndrome. Chronic. Extensive cardiology review with echo and cardiolite in April of 2010. Last review with Dr. Olsen in April of 2011. Atrial fibrillation 04/11/2013 Atrial flutter Cardioverted in 2004 with recurrence of atrial fibrillation/flutter in [place], relegated to rate control and chronic anticoagulation; extensive cardiology review with echo and cardiolite in April of 2010, last review with Dr. Olsen in April of 2011. Closed fracture Cervical vetebral fracture; closed. Previous traumatic C2 fracture in November of 2008, followed to [facility] Colon polyps 2008 hyperplastic polyp. 05/16/12 colonoscopy -- Dr. Howard -- tubular adenomas. 5-year sequence. CRP elevated Degenerative arthritis Most symptomatic in left knee 04/2012 DM type 2 (diabetes mellitus, type 2) Adult onset non insulin dependent diabetes. Metformin; mild peripheral neuropathy, taper off med in lieu of age and risk for complications with recent A1C of 5.4. Edema Encounter for Health Maintenance Examination in Adult Gallstones without obstruction of gallbladder Asymptomatic gallstones on ultrasound in 2006 Gout 10/10/2013 History of tobacco use Quit in 1985. Last chest x-ray in [place], does not require routine screening; minimal oral tobacco use - recounseled in this regard. Hyperlipidemia Pravachol Hypertension Hyperuricemia Inflammatory arthropathy Ischemic heart disease, chronic With distant history of inferior myocardial infarction and angioplasty//cardiolyte 09/2015 shelter systemic 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 Long-term use of high-risk medication Myocardial infarction, old Distant history of Peripheral neuropathy Mild Polyarthralgia Rheumatoid factor negative Weight loss 53 pound purposeful weight loss as of 04/08/12 Surgical History History of angioplasty 1985 History of cardiac catheterization Evidence on a distant catheterization of a 90% stenosis of a small diagonal branch of the left anterior descending History of colonoscopy 05/16/12. 2007 hyperplastic polyp. 05/16/12 Colonoscopy -- Dr. Howard -- tubular adenomas. 5-year sequence History of right knee surgery 11/2007 History of surgery 1985; stent placement Family History Sister Malignant neoplasm of breast 2 sisters had breast cancer Social History Smoking Status: Former smoker Alcohol Intake Frequency: holiday/special occasion only Substance Use: does not use Exam Narrative Narrative: Narrative: General General appearance: Present alert and in no apparent distress Head Head: Present atraumatic, normocephalic and normal inspection Eye Eye: Present normal appearance and EOMI; Absent conjunctival injection ENT ENT: Present normal exam and mucous membranes moist Neck Neck: Present normal inspection and trachea midline Respiratory Respiratory: Present normal lung sounds bilaterally and decreased breath sounds; Absent respiratory distress Cardiovascular Cardiovascular: Present regular rate, tachycardia, irregular rhythm, normal heart sounds and systolic murmur Adbominal Abdominal: Present soft; Absent distention, tenderness, guarding and rebound Extremities Extremities: Present normal inspection; Absent tenderness Back Back: Present normal inspection; Absent tenderness Neurological Neurological: Present alert, oriented X3 and CN II-XII intact; Absent motor sensory deficit Psychiatric Psychiatric: Present normal affect and normal mood Skin Skin: Present warm (WNL) and dry; Absent rash Course Vital Signs Vital signs: Vital Signs Temperature 98.3 F 04/13/20 09:08 Pulse Rate 100 H 04/13/20 09:08 Respiratory Rate 24 H 04/13/20 09:08 Blood Pressure 126/70 04/13/20 09:08 Pulse Oximetry (%) 81 L 04/13/20 09:08 Temperature 98.3 F 04/13/20 09:21 Pulse Rate 64 03/09/21 12:47 Respiratory Rate 17 04/13/20 12:47 Blood Pressure 112/53 04/13/20 12:47 Pulse Oximetry (%) 92 04/13/20 12:47 MDM MDM Narrative Medical decision making narrative: Narrative: Lab Data Lab results reviewed: Yes I reviewed the patient's lab results. Result diagrams: 04/13/20 09:19 04/13/20 09:19 Labs: Lab Results 04/13/20 04/13/20 04/13/20 Range/Units 09:19 09:19 09:19 WBC 11.3 H (4.5-11.0) K/mcL RBC 4.16 L (4.50-5.90) M/mcL Hgb 13.3 L (13.5-16.5) g/dL Hct 42.0 (41.0-55.0) % MCV 101.0 H (80.0-100.0) fL MCH 32.0 (26.0-34.0) pg MCHC 31.7 (31.0-36.0) g/dL RDW 16.7 H (11.5-14.5) % Plt Count 151 (140-440) K/mcL MPV 9.9 (7.4-10.4) fL Neut % (Auto) 87.3 H (38.0-78.0) % Lymph % (Auto) 6.2 L (15.0-49.0) % [place] % (Auto) 4.7 (1.0-12.0) % Eos % (Auto) 0.8 (0.0-7.0) % Baso % (Auto) 1.0 (0.0-2.0) % Lymph # (Auto) 0.70 L (1.50-4.80) K/mcL [place] # (Auto) 0.53 (0.10-0.90) K/mcL Eos # (Auto) 0.09 (0.00-0.70) K/mcL Baso # (Auto) 0.11 (0.00-0.20) K/mcL Absolute Neutrophils 9.83 H (1.80-8.00) K/mcL PT 21.0 H (11.9-14.5) sec INR 1.7 H (0.9-1.1) D-Dimer 0.43 (0.27-0.50) ug/mL VBG Lactic Acid (0.5-2.0) mmol/L Sodium 133 (133-145) mmol/L Potassium 4.5 (3.3-5.1) mmol/L Chloride 97 (96-108) mmol/L Carbon Dioxide 25 (22-30) mmol/L Anion Gap 11.0 (8.0-16.0) BUN 36 H (8-23) mg/dL Creatinine 1.4 H (0.7-1.2) mg/dL GFR Calculation 46 Glucose 287 H (70-105) mg/dL Calcium 9.0 (8.6-10.4) mg/dL Total Bilirubin 0.7 (0.1-1.0) mg/dL AST 34 (<40) U/L ALT 29 (<40) U/L Alkaline Phosphatase 56 (39-117) U/L Troponin T (<0.03) ng/mL NT-Pro-B Natriuret Pep 1752.0 H (<450.0) pg/mL Total Protein 7.1 (5.9-8.4) gm/dL Albumin 4.1 (3.2-5.2) gm/dL Globulin 3.0 (2.2-3.7) gm/dL Albumin/Globulin Ratio 1.4 (1.0-2.3) Digoxin ng/mL 04/13/20 04/13/20 04/13/20 Range/Units 09:19 09:19 09:22 WBC (4.5-11.0) K/mcL RBC (4.50-5.90) M/mcL Hgb (13.5-16.5) g/dL Hct (41.0-55.0) % MCV (80.0-100.0) fL MCH (26.0-34.0) pg MCHC (31.0-36.0) g/dL RDW (11.5-14.5) % Plt Count (140-440) K/mcL MPV (7.4-10.4) fL Neut % (Auto) (38.0-78.0) % Lymph % (Auto) (15.0-49.0) % [place] % (Auto) (1.0-12.0) % Eos % (Auto) (0.0-7.0) % Baso % (Auto) (0.0-2.0) % Lymph # (Auto) (1.50-4.80) K/mcL [place] # (Auto) (0.10-0.90) K/mcL Eos # (Auto) (0.00-0.70) K/mcL Baso # (Auto) (0.00-0.20) K/mcL Absolute Neutrophils (1.80-8.00) K/mcL PT (11.9-14.5) sec INR (0.9-1.1) D-Dimer (0.27-0.50) ug/mL VBG Lactic Acid 2.0 (0.5-2.0) mmol/L Sodium (133-145) mmol/L Potassium (3.3-5.1) mmol/L Chloride (96-108) mmol/L Carbon Dioxide (22-30) mmol/L Anion Gap (8.0-16.0) BUN (8-23) mg/dL Creatinine (0.7-1.2) mg/dL GFR Calculation Glucose (70-105) mg/dL Calcium (8.6-10.4) mg/dL Total Bilirubin (0.1-1.0) mg/dL AST (<40) U/L ALT (<40) U/L Alkaline Phosphatase (39-117) U/L Troponin T 0.02 (<0.03) ng/mL NT-Pro-B Natriuret Pep (<450.0) pg/mL Total Protein (5.9-8.4) gm/dL Albumin (3.2-5.2) gm/dL Globulin (2.2-3.7) gm/dL Albumin/Globulin Ratio (1.0-2.3) Digoxin 1.4 ng/mL ED POC Tests ED POC Tests: JOSE LUIS - Influenza A Negative JOSE LUIS - Influenza B Negative JOSE LUIS - SARS Antigen Negative Radiology Data Radiology results reviewed: Yes I reviewed the patient's radiology results. EKG Data EKG #1: EKG attestation: Yes I reviewed and interpreted this EKG. EKG results narrative: Atrial fibrillation, with a rate of [address] depression diffusely which may represent ischemia but most likely represents LVH. CC TIME Critical Care Time Critical Care Time: Yes Total Critical Care Time: 30 Attestation: The high probability of a clinically significant, sudden or life threatening deterioration of the [] system(s) required my full and direct attention, intervention and personal management. The aggregate critical care time was [30] minutes. This time is in addition to time spent performing reported procedures but includes the following: [] Data Review and interpretation [] Patient assessment and monitoring of vital signs [] Documentation [] Medication orders and management Patient presents for evaluation of 1 week of progressive dyspnea. The patient is noted to be hypoxic but in no respiratory distress. Patient's EKG shows atrial fibrillation with findings most consistent with LVH but ischemia is not completely excluded. The patient's medical record shows the patient is chronically in atrial fibrillation and is currently anticoagulated with warfarin. The patient's INR today is 1.7. The patient's medical record notes that the patient has a diagnosis of aortic stenosis. His last echocardiogram was in 2018. At that time he was also noted to have an EF of 50 to 55%. Today the patient's BNP is elevated. His chest x-ray also shows evidence of bilateral infiltrates as well as pleural effusions. This most likely represents a combination of pneumonia and some congestive heart failure. The patient has a history of COPD but is not oxygen dependent. The patient was given IV antibiotics after blood cultures. The patient was also given IV steroids and nebulized treatments. The patient remains persistently hypoxic after treatment and will require admission. I discussed the case with Dr. Davis the hospitalist. We will admit the patient. Discharge Plan Patient/Caregiver Discharge Instructions Pt seen by CENTRAL STERILE TECH/PA only: No Clinical Impression: Pneumonia, Aortic stenosis, Congestive heart failure Patient Disposition: Xfer As Inpt ([facility]) Follow up with: Doug Hernandez MD, FAAFP [Primary Care Provider] - Prescriptions: No Action warfarin 5 mg tablet See Rx Instructions PO QMWF Qty: 60 RF: 4 diltiazem HCl [Cartia XT] 120 mg capsule,extended release 24hr 240 mg PO QDAY Qty: 180 RF: 4 trazodone 50 mg tablet 150 mg PO QHS PRN (Reason: insomnia) Qty: 270 RF: 4 furosemide [Lasix] 80 mg tablet 40 mg PO QDAY Qty: 45 RF: 4 lisinopril 5 mg tablet 5 mg PO QDAY Qty: 90 RF: 4 potassium chloride 10 mEq tablet extended release 20 meq PO QDAY Qty: 180 RF: 4 pravastatin 40 mg tablet See Rx Instructions .ROUTE .COMPLEX Qty: 23 RF: 6 digoxin 250 mcg (0.25 mg) tablet See Rx Instructions .ROUTE .COMPLEX Qty: 68 RF: 4 allopurinol 100 mg tablet 200 mg PO QDAY Qty: 180 RF: 3 prednisone 5 mg tablet 5 mg PO QDAY Qty: 90 RF: 1
[2020-04-13] MEDS ORDERED: cefTRIAXone 1 GM in DEXTROSE 5% IN WATER 50 ML IV SCH (09:30)
--- NOTE | 2020-04-13 09:57 | XRay Report ---
CLINICAL INFORMATION: dyspnea COMPARISON: 12/25/2019 FINDINGS: Moderate cardiomegaly is unchanged. Mediastinum is unremarkable. The pulmonary vessels are now mildly congested. Mild interstitial edema seen throughout both lungs. Moderate right and small left basilar infiltrates with moderate right and small left pleural effusions noted IMPRESSION: Moderate right and small left basilar infiltrates with associated effusions. Mild underlying CHF Interpreted and Authenticated by: Manuel Rm 04/13/20
[2020-04-13 10:33] LABS: Basophils # (Auto) 0.11 K/mcL (0.00-0.20); Eosinophils # (Auto) 0.09 K/mcL (0.00-0.70); Eosinophils % (Auto) 0.8 % (0.0-7.0); Hemoglobin 13.3 g/dL (13.5-16.5); Lymphocytes % (Auto) 6.2 % (15.0-49.0); Mean Corpuscular HGB Conc 31.7 g/dL (31.0-36.0); Mean Platelet Volume 9.9 fL (7.4-10.4); Monocytes # (Auto) 0.53 K/mcL (0.10-0.90); Monocytes % (Auto) 4.7 % (1.0-12.0); Neutrophils % (Auto) 87.3 % (38.0-78.0); Platelet Count 151 K/mcL (140-440); RBC 4.16 M/mcL (4.50-5.90); Red Cell Distribution Width 16.7 % (11.5-14.5); WBC 11.3 K/mcL (4.5-11.0)
[2020-04-13 10:52] LABS: INR 1.7 (0.9-1.1)
[2020-04-13 11:03] LABS: Digoxin 1.4 ng/mL
[2020-04-13 11:03] LABS: ALT/SGPT 29 U/L (<40); AST/SGOT 34 U/L (<40); Albumin 4.1 gm/dL (3.2-5.2); Albumin/Globulin Ratio 1.4 (1.0-2.3); Alkaline Phosphatase 56 U/L (39-117); Bilirubin,Total 0.7 mg/dL (0.1-1.0); Blood Urea Nitrogen 36 mg/dL (8-23); Carbon Dioxide 25 mmol/L (22-30); Chloride 97 mmol/L (96-108); Glomerular Filtration Rate 46; Glucose 287 mg/dL (70-105)
--- NOTE | 2020-04-13 14:04 | Internal Med History&Physical ---
HPI History of Present Illness Patient information: Note initiated : 04/13/20 at 2:04 pm Service Date, if different from initiated Date: [] Patient: Shelby Ruff a 85 y/o M admitted on for Shortness of breath. Chief Complaint: Shortness of breath History of present illness: Mr. Ruff is a 85 year old M with a history of atrial fibrillation on anticoagulation/hypertension/hyperlipidemia/gout who was in his baseline state of health until roughly 5 days prior to presentation started experiencing gradually progressive dyspnea limiting his activities of daily living. For the last couple of nights he has not been able to lay down flat and was unable to sleep due to profound shortness of breath. This morning he became increasingly concerned and presents to the ER for evaluation. He denied associated fever, productive sputum, lightheadedness, loss of consciousness, hemoptysis. Patient carries a history of COPD/CAD and has followed up with cardiology in the past. He follows up with PCP Jose Michelle. Denies recent changes in dietary habits/high salt intake/NSAID intake/ exposure to sick contacts or Covid-like symptoms Initial work-up in the ER was consistent with bilateral chest infiltrates. Patient was started on antibiotic coverage after cultures were drawn. Last echocardiogram reviewed from 2018. Hospital service was consulted for admission in light of abov. At the time of my evaluation patient is alert and respond to c ommands/cooperative but unable to talk in full sentences. He is profoundly orthopneic. He endorses to increasing lower extremity swelling/lymphedema. 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) Inflammatory arthropathy (Acute) Hyperuricemia (Acute) Rheumatoid factor negative (Acute) LOUISE positive (Acute) CRP elevated (Acute) Polyarthralgia (Acute) Aortic stenosis (Chronic) Colon polyp (Chronic) Encounter for Health Maintenance Examination in Adult (Chronic) History of surgery (Acute) History of right knee surgery (Acute) History of colonoscopy (Acute) History of cardiac catheterization (Acute) History of angioplasty (Acute) Weight loss (Acute) History of tobacco use (Chronic) Peripheral neuropathy (Acute) Myocardial infarction, old (Acute) Ischemic heart disease, chronic (Chronic) Hypertension (Chronic) Hyperlipidemia (Chronic) Gout (Acute) Gallstones without obstruction of gallbladder (Chronic) Edema (Chronic) DM type 2 (diabetes mellitus, type 2) (Chronic) Degenerative arthritis (Chronic) Colon polyps (Acute) Closed fracture (Acute) Atrial flutter (Chronic) Atrial fibrillation (Chronic) Anticoagulant long-term use (Acute) Anticoagulant long-term use (Chronic) Medical History (Updated 04/13/20 @ 13:09 by Sonu Machuca MD) LOUISE positive Anticoagulant long-term use 03/21/2013. Anticoagulant use; chronic Anticoagulant long-term use Anticoagulation syndrome. Chronic. Extensive cardiology review with echo and cardiolite in April of 2010. Last review with Dr. Olsen in April of 2011. Atrial fibrillation 04/11/2013 Atrial flutter Cardioverted in 2004 with recurrence of atrial fibrillation/flutter in [place], relegated to rate control and chronic anticoagulation; extensive car diology review with echo and cardiolite in April of 2010, last review with Dr. Olsen in April of 2011. Closed fracture Cervical vetebral fracture; closed. Previous traumatic C2 fracture in er 2008, followed to [facility] Colon polyps 2008 hyperplastic polyp. 05/16/12 colonoscopy -- Dr. Howard -- tubular adenomas. 5-year sequence. CRP elevated Degenerative arthritis Most symptomatic in left knee 04/2012 DM type 2 (diabetes mellitus, type 2) Adult onset non insulin dependent diabetes. Metformin; mild peripheral neuropathy, taper off med in lieu of age and risk for complications with recent A1C of 5.4. Edema Encounter for Health Maintenance Examination in Adult Gallstones without obstruction of gallbladder Asymptomatic gallstones on ultrasound in 2006 Gout 10/10/2013 History of tobacco use Quit in 1985. Last chest x-ray in [place], does not require routine screening; minimal oral tobacco use - recounseled in this regard. Hyperlipidemia Pravachol Hypertension Hyperuricemia Inflammatory arthropathy Ischemic heart disease, chronic With distant history of inferior myocardial infarction and angioplasty//cardiolyte 09/2015 detention systemic 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 Long-term use of high-risk medication Myocardial infarction, old Distant history of Peripheral neuropathy Mild Polyarthralgia Rheumatoid factor negative Weight loss 53 pound purposeful weight loss as of 04/08/12 Surgical History History of angioplasty 1985 History of cardiac catheterization Evidence on a distant catheterization of a 90% stenosis of a small diagonal branch of the left anterior descending History of colonoscopy 05/16/12. 2008 hyperplastic polyp. 05/16/12 Colonoscopy -- Dr. Howard -- tubular adenomas. 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 [employer] smoking status: Former smoker alcohol intake frequency: holiday/special occasion only substance use type: does not use MEDS/ALLERGIES Home Medications and Allergies Home Medications Medication Instructions Recorded Confirmed Type warfarin 5 mg tablet See Rx Instructions PO QMWF #60 tab 08/12/19 04/13/20 Rx diltiazem HCl 120 mg 240 mg PO QDAY #180 cap 08/25/19 04/13/20 Rx capsule,extended release 24 hr furosemide 80 mg tablet 40 mg PO QDAY #45 tab 08/25/19 04/13/20 Rx lisinopril 5 mg tablet 5 mg PO QDAY #90 tab 08/25/19 04/13/20 Rx potassium chloride 10 mEq 20 meq PO QDAY #180 tab 08/25/19 04/13/20 Rx tablet,extended release trazodone 50 mg tablet 150 mg PO QHS PRN #270 tab 08/25/19 04/13/20 Rx digoxin 250 mcg (0.25 mg) tablet See Rx Instructions .ROUTE 10/01/19 04/13/20 Rx .COMPLEX #68 tab pravastatin 40 mg tablet See Rx Instructions .ROUTE 10/01/19 04/13/20 Rx .COMPLEX #23 tab allopurinol 100 mg tablet 200 mg PO QDAY #180 tab 01/15/20 04/13/20 Rx prednisone 5 mg tablet 5 mg PO QDAY #90 tab 03/31/20 04/13/20 Rx Allergies Allergy/AdvReac Type Severity Reaction Status Date / Time No Known Drug Intolerances AdvReac Unknown Unknown Verified 04/13/20 09:25 EXAM Constitutional Vitals: Temp Pulse Resp BP Pulse Ox 98.3 F 50 L 18 114/63 87 L 04/13/20 09:21 04/13/20 13:49 04/13/20 13:32 04/13/20 13:47 04/13/20 13:49 Alert oriented but anxious Head normocephalic Oral cavity moist No ear nose discharge Eye movement symmetrical Neck supple no lymphadenopathy S1-S2 irregular Labored breathing on 2 L oxygen, crackles bases Nondistended nontender abdomen Lower extremity bilateral pitting edema, no cyanosis clubbing or joint swelling Skin no suspicious lesion Psych anxious but alert cooperative Neuro normal higher function DATA Data Completed and Pending Labs: Labs from last 24 hours 04/13/20 04/13/20 04/13/20 09:22 09:22 09:19 WBC RBC Hgb Hct MCV MCH MCHC RDW Plt Count MPV Neut % (Auto) Lymph % (Auto) [place] % (Auto) Eos % (Auto) Baso % (Auto) Lymph # (Auto) [place] # (Auto) Eos # (Auto) Baso # (Auto) Absolute Neutrophils PT INR APTT Pending D-Dimer VBG Lactic Acid Sodium Potassium Chloride Carbon Dioxide Anion Gap BUN Creatinine GFR Calculation Glucose Calcium Total Bilirubin AST ALT Alkaline Phosphatase Troponin T 0.02 NT-Pro-B Natriuret Pep Total Protein Albumin Globulin Albumin/Globulin Ratio Digoxin 1.4 04/13/20 04/13/20 04/13/20 09:19 09:19 09:19 WBC RBC Hgb Hct MCV MCH MCHC RDW Plt Count MPV Neut % (Auto) Lymph % (Auto) [place] % (Auto) Eos % (Auto) Baso % (Auto) Lymph # (Auto) [place] # (Auto) Eos # (Auto) Baso # (Auto) Absolute Neutrophils PT 21.0 H INR 1.7 H APTT D-Dimer 0.43 VBG Lactic Acid 2.0 Sodium 133 Potassium 4.5 Chloride 97 Carbon Dioxide 25 Anion Gap 11.0 BUN 36 H Creatinine 1.4 H GFR Calculation 46 Glucose 287 H Calcium 9.0 Total Bilirubin 0.7 AST 34 ALT 29 Alkaline Phosphatase 56 Troponin T NT-Pro-B Natriuret Pep 1752.0 H Total Protein 7.1 Albumin 4.1 Globulin 3.0 Albumin/Globulin Ratio 1.4 Digoxin 04/13/20 09:19 WBC 11.3 H RBC 4.16 L Hgb 13.3 L Hct 42.0 MCV 101.0 H MCH 32.0 MCHC 31.7 RDW 16.7 H Plt Count 151 MPV 9.9 Neut % (Auto) 87.3 H Lymph % (Auto) 6.2 L [place] % (Auto) 4.7 Eos % (Auto) 0.8 Baso % (Auto) 1.0 Lymph # (Auto) 0.70 L [place] # (Auto) 0.53 Eos # (Auto) 0.09 Baso # (Auto) 0.11 Absolute Neutrophils 9.83 H PT INR APTT D-Dimer VBG Lactic Acid Sodium Potassium Chloride Carbon Dioxide Anion Gap BUN Creatinine GFR Calculation Glucose Calcium Total Bilirubin AST ALT Alkaline Phosphatase Troponin T NT-Pro-B Natriuret Pep Total Protein Albumin Globulin Albumin/Globulin Ratio Digoxin A/P Narrative A/P Narrative: * Community-acquired pneumonia:-Await Covid testing. Start antibiotic coverage. Sputum cultures * Hypoxia respiratory failure second above. Continue supplemental oxygen/pulmonary toilet. * Decompensated heart failure. Check echocardiogram. Start diuresis. Prior history of CAD, follows up with [place] [facility] * Mild IVAN continue close monitoring. Avoid nephrotoxins. * Chronic atrial fibrillation rate controlled on digoxin. 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
[2020-04-13] MEDS ORDERED: ONDANSETRON 4 MG/2 ML VIAL IV PRN (17:29)
[2020-04-13] MEDS ORDERED: POTASSIUM CHLORIDE 40 MEQ in DEXTROSE 5% IN WATER 500 ML IV PRN (17:29)
[2020-04-13] MEDS ORDERED: hydrALAZINE 20 MG/ML VIAL IV PRN (17:29)
[2020-04-13] MEDS ORDERED: ONDANSETRON 4 MG ODT TABLET SL PRN (17:29)
[2020-04-13] MEDS ORDERED: POLYETHYLENE GLYCOL 3350 17 GM PACKET PO PRN (17:29)
[2020-04-13] MEDS ORDERED: MELATONIN 3 MG TABLET PO PRN (17:29)
[2020-04-13] MEDS ORDERED: ACETAMINOPHEN 325 MG TABLET PO PRN (17:29)
[2020-04-13] MEDS ORDERED: BISACODYL 10 MG SUPP.RECT PR PRN (17:29)
[2020-04-13] MEDS ORDERED: NON FORMULARY MEDICATION 1 DOSE MISCELL (Digoxin 250 mcg (0.25 mg) tablet) SCH (17:29)
[2020-04-13] MEDS ORDERED: METOPROLOL TARTRATE 5 MG/5 ML VIAL IV PRN (17:29)
[2020-04-13] MEDS ORDERED: MAGNESIUM SULFATE 2 GM/50 ML BAG IV PRN (17:29)
[2020-04-13] MEDS ORDERED: traZODone HCL 50 MG TABLET PO PRN (17:29)
[2020-04-13] MEDS ORDERED: ACETAMINOPHEN 650 MG/65 ML BAG IV PRN (17:29)
[2020-04-13] MEDS ORDERED: WARFARIN 5 MG TABLET PO ONE (18:00)
[2020-04-13] MEDS: FUROSEMIDE 20 MG/2 ML VIAL IV SCH ×2 (18:03→23:51)
[2020-04-13] MEDS: 0.9 % SODIUM CHLORIDE 10 ML SYRINGE IV SCH ×2 (18:04→20:18)
[2020-04-13] MEDS: IPRATROPIUM/ALBUTEROL 3 ML AMPUL.NEB NEB SCH ×3 (18:05→22:40)
[2020-04-13] MEDS ORDERED: DEXTROSE 50% 50 ML VIAL IV PRN (18:09)
[2020-04-13] MEDS ORDERED: DEXTROSE 31 GM ORAL.SUSP PO PRN (18:09)
[2020-04-13] MEDS: INSULIN LISPRO 1 UNIT/0.01 ML UNIT SQ SCH ×3 (18:28→21:59)
[2020-04-13] MEDS: AZITHROMYCIN 500 MG in DEXTROSE 5% IN WATER 250 ML IV SCH (18:29)
[2020-04-13] MEDS ORDERED: INSULIN LISPRO 1 UNIT/0.01 ML UNIT SQ ONE (18:37)
[2020-04-13] MEDS: HEPARIN 5,000 UNIT/ML VIAL SQ SCH (20:16)
[2020-04-13] MEDS: SENNOSIDES/DOCUSATE SODIUM 1 TAB TABLET PO SCH (20:17)
[2020-04-13] MEDS: DOCUSATE SODIUM 100 MG CAPSULE PO SCH (20:17)
[2020-04-13] MEDS: BUDESONIDE 0.5 MG/2 ML AMPUL.NEB NEB SCH (22:40)
[2020-04-14] MEDS: IPRATROPIUM/ALBUTEROL 3 ML AMPUL.NEB NEB SCH ×6 (05:34→22:52)
[2020-04-14] MEDS: FUROSEMIDE 20 MG/2 ML VIAL IV SCH ×3 (05:49→21:21)
[2020-04-14] MEDS: 0.9 % SODIUM CHLORIDE 10 ML SYRINGE IV SCH ×3 (05:49→21:18)
[2020-04-14 07:11] LABS: Basophils # (Auto) 0.03 K/mcL (0.00-0.20); Basophils % (Auto) 0.3 % (0.0-2.0); Eosinophils # (Auto) 0 K/mcL (0.00-0.70); Eosinophils % (Auto) 0 % (0.0-7.0); Hematocrit 36.7 % (41.0-55.0); Hemoglobin 11.8 g/dL (13.5-16.5); Lymphocytes # (Auto) 0.63 K/mcL (1.50-4.80); Lymphocytes % (Auto) 6.7 % (15.0-49.0); Mean Cell Volume 99.5 fL (80.0-100.0); Mean Corpuscular HGB Conc 32.2 g/dL (31.0-36.0); Mean Platelet Volume 9.8 fL (7.4-10.4); Monocytes # (Auto) 0.36 K/mcL (0.10-0.90); Monocytes % (Auto) 3.8 % (1.0-12.0); Neutrophils % (Auto) 89.2 % (38.0-78.0); Platelet Count 130 K/mcL (140-440); RBC 3.69 M/mcL (4.50-5.90); Red Cell Distribution Width 16.3 % (11.5-14.5); WBC 9.5 K/mcL (4.5-11.0)
[2020-04-14] MEDS: BUDESONIDE 0.5 MG/2 ML AMPUL.NEB NEB SCH ×2 (07:15→18:59)
[2020-04-14 07:30] LABS: INR 1.9 (0.9-1.1); Prothrombin Time 22.2 sec (11.9-14.5)
[2020-04-14 07:39] LABS: ALT/SGPT 21 U/L (<40); AST/SGOT 20 U/L (<40); Albumin 3.9 gm/dL (3.2-5.2); Albumin/Globulin Ratio 1.6 (1.0-2.3); Alkaline Phosphatase 43 U/L (39-117); Bilirubin,Direct < 0.2 mg/dL (0-0.3); Bilirubin,Total 0.5 mg/dL (0.1-1.0); Blood Urea Nitrogen 36 mg/dL (8-23); Calcium 8.8 mg/dL (8.6-10.4); Carbon Dioxide 30 mmol/L (22-30); Chloride 99 mmol/L (96-108); Globulin 2.4 gm/dL (2.2-3.7); Glomerular Filtration Rate 55; Glucose 158 mg/dL (70-105); Lactate Dehydrogenase 234 U/L (135-225); Phosphorous 3.9 mg/dL (2.5-4.5); Triglycerides 58 mg/dL (<150); Uric Acid 6.3 mg/dL (2.5-8.0)
[2020-04-14] MEDS: INSULIN LISPRO 1 UNIT/0.01 ML UNIT SQ SCH ×4 (08:12→21:20)
[2020-04-14] MEDS: cefTRIAXone 2 GM in DEXTROSE 5% IN WATER 50 ML IV SCH (09:00)
[2020-04-14] MEDS: DOCUSATE SODIUM 100 MG CAPSULE PO SCH ×2 (09:15→21:05)
[2020-04-14] MEDS: DILTIAZEM 240 MG CAP.XL.24H PO SCH (09:15)
[2020-04-14] MEDS: MULTIVIT,THER IRON,CA,FA & MIN 1 TABLET PO SCH (09:15)
[2020-04-14] MEDS: ALLOPURINOL 100 MG TABLET PO SCH (09:15)
[2020-04-14] MEDS: POTASSIUM CHLORIDE 10 MEQ TABLET PO SCH (09:15)
[2020-04-14] MEDS: HEPARIN 5,000 UNIT/ML VIAL SQ SCH ×2 (09:15→21:19)
[2020-04-14] MEDS: LISINOPRIL 5 MG TABLET PO SCH (09:23)
[2020-04-14] MEDS: FUROSEMIDE 80 MG TABLET PO SCH (09:23)
[2020-04-14] MEDS: sitaGLIPtin 100 MG TABLET PO SCH (09:23)
[2020-04-14] MEDS: AZITHROMYCIN 500 MG in DEXTROSE 5% IN WATER 250 ML IV SCH (09:25)
[2020-04-14] MEDS ORDERED: cefTRIAXone 2 GM VIAL ONE (09:31)
--- NOTE | 2020-04-14 10:50 | Internal Med Progress Note ---
SUBJECTIVE Subjective Patient information: Note initiated : 04/14/20 at 10:49 am Service Date, if different from initiated Date: [] Patient: Shelby Ruff a 85 y/o M admitted on 04/13/20 for Shortness of breath. Chief Complaint: [ Interval history: History of present illness: Mr. Ruff is a 85 year old M with a history of atrial fibrillation on ant icoagulation/hypertension/hyperlipidemia/gout who was in his baseline state of health until roughly 5 days prior to presentation started experiencing gradually progressive dyspnea limiting his activities of daily living. For the last couple of nights he has not been able to lay down flat and was unable to sleep due to profound shortness of breath. This morning he became increasingly concerned and presents to the ER for evaluation. He denied associated fever, productive sputum, lightheadedness, loss of consciousness, hemoptysis. Patient carries a history of COPD/CAD and has followed up with cardiology in the past. He follows up with PCP Jose Michelle. Denies recent changes in dietary habits/high salt intake/NSAID intake/ exposure to sick contacts or Covid-like symptoms Initial work-up in the ER was consistent with bilateral chest infiltrates. Patient was started on antibiotic coverage after cultures were drawn. Last echocardiogram reviewed from 2018. Hospital service was consulted for admission in light of abov. At the time of my evaluation patient is alert and respond to c ommands/cooperative but unable to talk in full sentences. He is profoundly orthopneic. He endorses to increasing lower extremity swelling/lymphedema. His last episode of pneumonia was in December 08-patient doing well. Swelling diuretics. Over 2000 cc net negative fluid balance. Echocardiogram pending. Improved shortness of breath/orthopnea. Currently down from 5 L to 3 L oxygen. No additional concerns per nursing staff. White count 10,000. Constitutional Vitals: Vital Signs Temp Pulse Resp BP Pulse Ox 97.9 F 73 19 104/52 97 04/14/20 08:01 04/14/20 08:01 04/14/20 08:07 04/14/20 08:01 04/14/20 08:07 Period Temp Pulse Resp BP Sys/Chang Pulse Ox Last 24 Hr 97.7 F-98.6 F 50-76 12-23 89-137/52-114 87-99 Intake and Output 04/13/20 04/14/2004/14/21 21:59 05:59 13:59 Intake Total 250 610 Output Total 950 1450 850 Balance -700 840 -850 Weight 103.6 kg Alert oriented Nonlabored breathing on 4 L oxygen No anxiety Lymphedema improved Intake & Output: Intake & Output 04/13/20 04/14/20 04/14/20 21:59 05:59 13:59 Intake Total 250 610 Output Total 950 1450 850 Balance -700 840 -850 Weight 103.6 kg Intake: IV 250 Zithromax 500 mg In Dextrose 5% 250 in Water 250 ml @ 250 mls/hr IV Q24H [facility] Rx#:[id number] Oral 610 Output: Urine Catheter Amount 500 450 Void Amount 450 1450 400 Other: Urine Appearance Clear Clear Clear Urine Color Bright Yellow Bright Yellow Pale Urine Odor Normal Normal Normal Stool Size Moderate Moderate Stool Color Brown Brown Stool Consistency Formed Formed # Bowel Movements 1 # of times incontinent of 0 Bowels OBJ DATA Labs CBC & Chem 7: 04/14/20 06:13 04/14/20 06:13 Labs: Abnormal Lab Results 04/14/20 04/14/20 04/14/20 06:13 06:13 06:12 WBC RBC 3.69 L Hgb 11.8 L Hct 36.7 L MCV RDW 16.3 H Plt Count 130 L Neut % (Auto) 89.2 H Lymph % (Auto) 6.7 L Lymph # (Auto) 0.63 L Absolute Neutrophils 8.45 H PT 22.2 H INR 1.9 H Anion Gap 5.0 L BUN 36 H Creatinine Glucose 158 H Lactate Dehydrogenase 234 H NT-Pro-B Natriuret Pep 04/13/20 04/13/20 04/13/20 09:19 09:19 09:19 WBC 11.3 H RBC 4.16 L Hgb 13.3 L Hct MCV 101.0 H RDW 16.7 H Plt Count Neut % (Auto) 87.3 H Lymph % (Auto) 6.2 L Lymph # (Auto) 0.70 L Absolute Neutrophils 9.83 H PT 21.0 H INR 1.7 H Anion Gap BUN 36 H Creatinine 1.4 H Glucose 287 H Lactate Dehydrogenase NT-Pro-B Natriuret Pep 1752.0 H Meds: Medications Acetaminophen (Acetaminophen 325 Mg Tablet) 650 mg PO Q4-6HP PRN; Protocol PRN Reason: Per Pain Protocol/Fever > 101 Albuterol/Ipratropium (Ipratropium/Albuterol 3 Ml Ampul.Neb) 3 ml NEB Q4HRT [facility] Last Admin: 04/14/20 07:15 Dose: 3 ml Documented by: Allopurinol (Allopurinol 100 Mg Tablet) 200 mg PO QDAY [facility] Last Admin: 04/14/20 09:15 Dose: 200 mg Documented by: Bisacodyl (Bisacodyl 10 Mg Supp.Rect) 10 mg LA Q2-3DAYS PRN PRN Reason: Constipation Budesonide (Budesonide 0.5 Mg/2 Ml Ampul.Neb) 0.5 mg NEB Q12 [facility] Last Admin: 04/14/20 07:15 Dose: 0.5 mg Documented by: Dextrose (Dextrose 50% 50 Ml Vial) 0 ml IV UD PRN PRN Reason: Hypoglycemia Diagnostic Test (Pha) (Accu-Chek 1 Each Strip) 1 each FS ACHS [facility] Last Admin: 04/14/20 08:06 Dose: 1 each Documented by: Digoxin (Digoxin 125 Mcg Tablet) 125 mcg PO Q48@1400 [facility] Digoxin (Digoxin 125 Mcg Tablet) 250 mcg PO Q48@1400 [facility] Diltiazem HCl (Diltiazem 240 Mg Cap.Xl.24h) 240 mg PO DAILY [facility] Last Admin: 04/14/20 09:15 Dose: 240 mg Documented by: Docusate Sodium (Docusate Sodium 100 Mg Capsule) 100 mg PO BID [facility] Last Admin: 04/14/20 09:15 Dose: 100 mg Documented by: Furosemide (Furosemide 80 Mg Tablet) 40 mg PO QDAY [facility] Last Admin: 04/14/20 09:23 Dose: 40 mg Documented by: Furosemide (Furosemide 20 Mg/2 Ml Vial) 20 mg IV Q8 [facility] Last Admin: 04/14/20 05:49 Dose: 20 mg Documented by: Glucose (Dextrose 31 Gm Oral.Susp) 15 gm PO PRN PRN PRN Reason: Hypoglycemia Heparin Sodium (Porcine) (Heparin 5,000 Unit/Ml Vial) 5,000 unit SQ Q12 [facility] Last Admin: 04/14/20 09:15 Dose: 5,000 unit Documented by: Hydralazine HCl (Hydralazine 20 Mg/Ml Vial) 10 mg IV Q4-6HP PRN PRN Reason: Hypertension Azithromycin 500 mg/ Dextrose 250 mls @ 250 mls/hr IV Q24H [facility]; Protocol Stop: 04/15/20 18:59 Last Admin: 04/14/20 09:25 Dose: 250 mls/hr Documented by: Potassium Chloride 40 meq/ (Dextrose) 520 mls @ 130 mls/hr IV UD PRN PRN Reason: K+ = or < 3.5 Acetaminophen (Ofirmev) 650 mg in 65 mls @ 130 mls/hr IV Q6HP PRN; Protocol PRN Reason: Per Pain Protocol/Fever > 101 Magnesium Sulfate (Magnesium Sulfate) 2 gm in 50 mls @ 50 mls/hr IV UD PRN PRN Reason: MG = or < 1.7 Ceftriaxone Sodium 2 gm/ (Dextrose) 50 mls @ 100 mls/hr IV Q24H [facility]; Protocol Last Admin: 04/14/20 09:00 Dose: 100 mls/hr Documented by: Insulin Human Lispro (Insulin Lispro 1 Unit/0.01 Ml Unit) 0 unit SQ ACHS [facility]; Protocol Last Admin: 04/14/20 08:12 Dose: 2 unit Documented by: Iron Carb/Multivit/Otoe/Folic Acid (Multivit,Ther Iron,Ca,Fa & Min 1 Tablet) 1 tab PO DAILY [facility] Last Admin: 04/14/20 09:15 Dose: 1 tab Documented by: Lisinopril (Lisinopril 5 Mg Tablet) 5 mg PO QDAY [facility] Last Admin: 04/14/20 09:23 Dose: 5 mg Documented by: Melatonin (Melatonin 3 Mg Tablet) 3 mg PO HSP PRN PRN Reason: Insomnia Metoprolol Tartrate (Metoprolol Tartrate 5 Mg/5 Ml Vial) 5 mg IV Q5M PRN PRN Reason: Heart Rate > 140 bpm Ondansetron HCl (Ondansetron 4 Mg Odt Tablet) 4 mg SL Q4-6HP PRN; Protocol PRN Reason: Nausea And Vomiting Ondansetron HCl (Ondansetron 4 Mg/2 Ml Vial) 4 mg IV Q4-6HP PRN; Protocol PRN Reason: Nausea And Vomiting Polyethylene Glycol (Polyethylene Glycol 3350 17 Gm Packet) 17 gm PO DAILYP PRN PRN Reason: Constipation Potassium Chloride (Potassium Chloride 10 Meq Tablet) [facility] Last Admin: 04/14/20 09:15 Dose: 20 meq Documented by: Senna/Docusate Sodium (Sennosides/Docusate Sodium 1 Tab Tablet) 1 tab PO HS [facility] Last Admin: 04/13/20 20:17 Dose: Not Given Documented by: Simvastatin (Simvastatin 10 Mg Tablet) 10 mg PO Q48@2100 [facility] Sitagliptin Phosphate (Sitagliptin 100 Mg Tablet) 100 mg PO DAILY [facility] Last Admin: 04/14/20 09:23 Dose: 100 mg Documented by: Sodium Chloride (0.9 % Sodium Chloride 10 Ml Syringe) 10 ml IV Q8 [facility] Last Admin: 04/14/20 05:49 Dose: 10 ml Documented by: Trazodone HCl (Trazodone Hcl 50 Mg Tablet) 150 mg PO QHS PRN PRN Reason: insomnia Last Admin: 04/13/20 20:16 Dose: 150 mg Documented by: Warfarin Sodium (Warfarin Per Pharmacy) 1 order PO UD [facility] A/P Narrative A/P Narrative: * Community-acquired pneumonia: Clinical improvement noted on antibiotic coverage. Continue pulmonary toilet. Covid/influenza negative. * Hypoxia respiratory failure second above. Currently down from 5 L to 4 L oxygen. Improving with adequate diuresis. Improving interval imaging. Continue weaning oxygen as tolerated. * Decompensated heart failure. Await echocardiogram results. Continue aggr essive diuresis. Optimize CHF management based on echo finding. Prior history of CAD, follows up with [place] [facility] * Mild IVAN continue close monitoring. Creatinine stable at 1.2. Avoid nephro toxins. * Chronic atrial fibrillation rate controlled on digoxin. Continue anticoagulation on Coumadin * DM type II diet controlled. Elevated blood sugars. 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
[2020-04-14] MEDS ORDERED: WARFARIN 5 MG TABLET PO ONE (14:00)
[2020-04-14] MEDS ORDERED: DIGOXIN 125 MCG TABLET PO SCH (14:00)
[2020-04-14] MEDS ORDERED: SIMVASTATIN 10 MG TABLET PO SCH (21:00)
[2020-04-14] MEDS: SENNOSIDES/DOCUSATE SODIUM 1 TAB TABLET PO SCH (21:05)
[2020-04-15] MEDS: IPRATROPIUM/ALBUTEROL 3 ML AMPUL.NEB NEB SCH ×6 (04:40→22:13)
[2020-04-15] MEDS: 0.9 % SODIUM CHLORIDE 10 ML SYRINGE IV SCH ×3 (05:22→22:57)
[2020-04-15 06:34] LABS: Basophils # (Auto) 0.07 K/mcL (0.00-0.20); Basophils % (Auto) 0.6 % (0.0-2.0); Eosinophils # (Auto) 0.22 K/mcL (0.00-0.70); Eosinophils % (Auto) 1.8 % (0.0-7.0); Hematocrit 36.3 % (41.0-55.0); Hemoglobin 11.4 g/dL (13.5-16.5); Lymphocytes # (Auto) 1.63 K/mcL (1.50-4.80); Lymphocytes % (Auto) 13.6 % (15.0-49.0); Mean Cell Volume 100.6 fL (80.0-100.0); Mean Corpuscular HGB Conc 31.4 g/dL (31.0-36.0); Mean Platelet Volume 9.7 fL (7.4-10.4); Monocytes # (Auto) 0.65 K/mcL (0.10-0.90); Monocytes % (Auto) 5.4 % (1.0-12.0); Neutrophils % (Auto) 78.6 % (38.0-78.0); Platelet Count 130 K/mcL (140-440); RBC 3.61 M/mcL (4.50-5.90); Red Cell Distribution Width 16.4 % (11.5-14.5)
[2020-04-15 06:58] LABS: INR 1.9 (0.9-1.1)
[2020-04-15 07:08] LABS: ALT/SGPT 18 U/L (<40); AST/SGOT 18 U/L (<40); Albumin 3.4 gm/dL (3.2-5.2); Albumin/Globulin Ratio 1.4 (1.0-2.3); Alkaline Phosphatase 42 U/L (39-117); Bilirubin,Direct < 0.2 mg/dL (0-0.3); Bilirubin,Total 0.4 mg/dL (0.1-1.0); Blood Urea Nitrogen 45 mg/dL (8-23); Calcium 8.5 mg/dL (8.6-10.4); Carbon Dioxide 31 mmol/L (22-30); Chloride 98 mmol/L (96-108); Globulin 2.5 gm/dL (2.2-3.7); Glomerular Filtration Rate 46; Glucose 136 mg/dL (70-105); Lactate Dehydrogenase 232 U/L (135-225); Triglycerides 71 mg/dL (<150)
[2020-04-15] MEDS: BUDESONIDE 0.5 MG/2 ML AMPUL.NEB NEB SCH ×2 (07:28→19:20)
[2020-04-15] MEDS: INSULIN LISPRO 1 UNIT/0.01 ML UNIT SQ SCH ×4 (08:23→20:37)
[2020-04-15] MEDS: LISINOPRIL 5 MG TABLET PO SCH ×2 (08:32→10:45)
[2020-04-15] MEDS: POTASSIUM CHLORIDE 10 MEQ TABLET PO SCH (08:32)
[2020-04-15] MEDS: HEPARIN 5,000 UNIT/ML VIAL SQ SCH ×2 (08:32→20:38)
[2020-04-15] MEDS: sitaGLIPtin 100 MG TABLET PO SCH (08:32)
[2020-04-15] MEDS: MULTIVIT,THER IRON,CA,FA & MIN 1 TABLET PO SCH (08:32)
[2020-04-15] MEDS: ALLOPURINOL 100 MG TABLET PO SCH (08:33)
[2020-04-15] MEDS: FUROSEMIDE 80 MG TABLET PO SCH (08:33)
[2020-04-15] MEDS: FUROSEMIDE 20 MG/2 ML VIAL IV SCH ×2 (08:41→16:10)
[2020-04-15] MEDS: DOCUSATE SODIUM 100 MG CAPSULE PO SCH ×2 (08:46→20:31)
--- NOTE | 2020-04-15 08:51 | XRay Report ---
CLINICAL INFORMATION: Follow-up infiltratesInterval Change COMPARISON: 04/13/2020 FINDINGS: Moderate cardiomegaly is unchanged. Mediastinum is unremarkable. Pulmonary vessels appear normal in today's exam. Moderate consolidated infiltrate, likely pneumonia, in the right base with moderate right pleural effusion show slight improvement. Left basilar infiltrate has nearly resolved with minimal residual. IMPRESSION: Moderate consolidated right basilar infiltrate, likely pneumonia, show slight improvement. Small right pleural effusion. Near-complete resolution of left basilar infiltrate. Resolution of CHF Interpreted and Authenticated by: Manuel Rm 04/15/20
[2020-04-15] MEDS: cefTRIAXone 2 GM in DEXTROSE 5% IN WATER 50 ML IV SCH (09:09)
[2020-04-15] MEDS: AZITHROMYCIN 500 MG in DEXTROSE 5% IN WATER 250 ML IV SCH (09:47)
[2020-04-15] MEDS: DILTIAZEM 240 MG CAP.XL.24H PO SCH (10:44)
--- NOTE | 2020-04-15 13:32 | Internal Med Progress Note ---
SUBJECTIVE Subjective Patient information: Note initiated : 04/15/20 at 1:28 pm Service Date, if different from initiated Date: [] Patient: Shelby Ruff a 85 y/o M admitted on 04/13/20 for Shortness of breath. Chief Complaint: [] Interval history: History of present illness: Mr. Ruff is a 85 year old M with a history of atrial fibrillation on ant icoagulation/hypertension/hyperlipidemia/gout who was in his baseline state of health until roughly 5 days prior to presentation started experiencing gradually progressive dyspnea limiting his activities of daily living. For the last couple of nights he has not been able to lay down flat and was unable to sleep due to profound shortness of breath. This morning he became increasingly concerned and presents to the ER for evaluation. He denied associated fever, productive sputum, lightheadedness, loss of consciousness, hemoptysis. Patient carries a history of COPD/CAD and has followed up with cardiology in the past. He follows up with PCP Jose Michelle. Denies recent changes in dietary habits/high salt intake/NSAID intake/ exposure to sick contacts or Covid-like symptoms Initial work-up in the ER was consistent with bilateral chest infiltrates. Patient was started on antibiotic coverage after cultures were drawn. Last echocardiogram reviewed from 2017. Hospital service was consulted for admission in light of abov. At the time of my evaluation patient is alert and respond to c ommands/cooperative but unable to talk in full sentences. He is profoundly orthopneic. He endorses to increasing lower extremity swelling/lymphedema. His last episode of pneumonia was in December 08-patient doing well. Swelling diuretics. Over 2000 cc net negative fluid balance. Echocardiogram pending. Improved shortness of breath/orthopnea. Currently down from 5 L to 3 L oxygen. No additional concerns per nursing staff. White count 10,000. 04/15-patient doing better. However systolics mid 90s. Diuretics switched to p.o. and antihypertensives held this morning. Patient feels a lot better. Resolved orthopnea and currently on 2 L oxygen. Weaning oxygen as tolerated. Ongoing physical therapy. Tolerating diet. Will likely discharge in 24 hours Constitutional Vitals: Vital Signs Temp Pulse Resp BP Pulse Ox 97.3 F 74 24 H 111/57 96 04/15/20 08:01 04/15/20 07:39 04/15/20 10:01 04/15/20 10:21 04/15/20 11:10 Period Temp Pulse Resp BP Sys/Chang Pulse Ox Last 24 Hr 97.3 F-99.7 F 67-74 14-24 82-120/43-94 87-98 Intake and Output 04/14/20 04/15/20 04/15/20 21:59 05:59 13:59 Intake Total 348 873 7057 Output Total 800 675 Balance 240 -140 665 Weight 104.598 kg Alert oriented Nonlabored breathing Nondistended abdomen Improvement of edema. No telemetry Intake & Output: Intake & Output 04/14/20 04/15/20 04/15/20 21:59 05:59 13:59 Intake Total 441 450 7030 Output Total 800 675 Balance 240 -140 665 Weight 104.598 kg Intake: IV 300 Zithromax 500 mg In Dextrose 5% 250 in Water 250 ml @ 250 mls/hr IV Q24H [facility] Rx#:[id number] Rocephin 2 gm In Dextrose 5% in 50 Water 50 ml @ 100 mls/hr IV Q24H [facility] Rx#:[id number] Oral 542 116 5953 Output: Void Amount 800 675 Other: Meal Dinner Breakfast Percent of Meal Consumed 100% 75% Feeding Ability Independent Urine Appearance Clear Clear Clear Urine Color Bright Yellow Bright Yellow Bright Yellow Urine Odor Normal Normal Normal Stool Size Moderate Large Stool Color Brown Brown Stool Consistency Formed Soft OBJ DATA Labs CBC & Chem 7: 04/15/20 05:35 04/15/20 05:35 Labs: Abnormal Lab Results 04/15/20 04/15/20 04/15/20 05:35 05:35 05:33 WBC 12.0 H RBC 3.61 L Hgb 11.4 L Hct 36.3 L MCV 100.6 H RDW 16.4 H Plt Count 130 L Neut % (Auto) 78.6 H Lymph % (Auto) 13.6 L Lymph # (Auto) Absolute Neutrophils 9.43 H PT 23.0 H INR 1.9 H Carbon Dioxide 31 H Anion Gap 5.0 L BUN 45 H Creatinine 1.4 H Glucose 136 H Calcium 8.5 L Phosphorus 5.0 H Lactate Dehydrogenase 232 H NT-Pro-B Natriuret Pep 04/14/20 04/14/20 04/14/20 06:13 06:13 06:12 WBC RBC 3.69 L Hgb 11.8 L Hct 36.7 L MCV RDW 16.3 H Plt Count 130 L Neut % (Auto) 89.2 H Lymph % (Auto) 6.7 L Lymph # (Auto) 0.63 L Absolute Neutrophils 8.45 H PT 22.2 H INR 1.9 H Carbon Dioxide Anion Gap 5.0 L BUN 36 H Creatinine Glucose 158 H Calcium Phosphorus Lactate Dehydrogenase 234 H NT-Pro-B Natriuret Pep 04/13/20 04/13/20 04/13/20 09:19 09:19 09:19 WBC 11.3 H RBC 4.16 L Hgb 13.3 L Hct MCV 101.0 H RDW 16.7 H Plt Count Neut % (Auto) 87.3 H Lymph % (Auto) 6.2 L Lymph # (Auto) 0.70 L Absolute Neutrophils 9.83 H PT 21.0 H INR 1.7 H Carbon Dioxide Anion Gap BUN 36 H Creatinine 1.4 H Glucose 287 H Calcium Phosphorus Lactate Dehydrogenase NT-Pro-B Natriuret Pep 1752.0 H Meds: Medications Acetaminophen (Acetaminophen 325 Mg Tablet) 650 mg PO Q4-6HP PRN; Protocol PRN Reason: Per Pain Protocol/Fever > 101 Albuterol/Ipratropium (Ipratropium/Albuterol 3 Ml Ampul.Neb) 3 ml NEB Q4HRT [facility] Last Admin: 04/15/20 11:10 Dose: 3 ml Documented by: Allopurinol (Allopurinol 100 Mg Tablet) 200 mg PO QDAY [facility] Last Admin: 04/15/20 08:33 Dose: 200 mg Documented by: Bisacodyl (Bisacodyl 10 Mg Supp.Rect) 10 mg MD Q2-3DAYS PRN PRN Reason: Constipation Budesonide (Budesonide 0.5 Mg/2 Ml Ampul.Neb) 0.5 mg NEB Q12 [facility] Last Admin: 04/15/20 07:28 Dose: 0.5 mg Documented by: Dextrose (Dextrose 50% 50 Ml Vial) 0 ml IV UD PRN PRN Reason: Hypoglycemia Diagnostic Test (Pha) (Accu-Chek 1 Each Strip) 1 each FS ACHS [facility] Last Admin: 04/15/20 12:06 Dose: 1 each Documented by: Digoxin (Digoxin 125 Mcg Tablet) 125 mcg PO Q48@1400 [facility] Last Admin: 04/14/20 15:13 Dose: 125 mcg Documented by: Digoxin (Digoxin 125 Mcg Tablet) 250 mcg PO Q48@1400 [facility] Diltiazem HCl (Diltiazem 240 Mg Cap.Xl.24h) 240 mg PO DAILY [facility] Last Admin: 04/15/20 10:44 Dose: Not Given Documented by: Docusate Sodium (Docusate Sodium 100 Mg Capsule) 100 mg PO BID [facility] Last Admin: 04/15/20 08:46 Dose: Not Given Documented by: Furosemide (Furosemide 80 Mg Tablet) 40 mg PO QDAY [facility] Last Admin: 04/15/20 08:33 Dose: 40 mg Documented by: Furosemide (Furosemide 20 Mg/2 Ml Vial) 20 mg IV Q8 [facility] Last Admin: 04/15/20 08:41 Dose: Not Given Documented by: Glucose (Dextrose 31 Gm Oral.Susp) 15 gm PO PRN PRN PRN Reason: Hypoglycemia Heparin Sodium (Porcine) (Heparin 5,000 Unit/Ml Vial) 5,000 unit SQ Q12 [facility] Last Admin: 04/15/20 08:32 Dose: 5,000 unit Documented by: Hydralazine HCl (Hydralazine 20 Mg/Ml Vial) 10 mg IV Q4-6HP PRN PRN Reason: Hypertension Azithromycin 500 mg/ Dextrose 250 mls @ 250 mls/hr IV Q24H [facility]; Protocol Stop: 04/15/20 18:59 Last Infusion: 04/15/20 10:47 Dose: Infused Documented by: Potassium Chloride 40 meq/ (Dextrose) 520 mls @ 130 mls/hr IV UD PRN PRN Reason: K+ = or < 3.5 Acetaminophen (Ofirmev) 650 mg in 65 mls @ 130 mls/hr IV Q6HP PRN; Protocol PRN Reason: Per Pain Protocol/Fever > 101 Magnesium Sulfate (Magnesium Sulfate) 2 gm in 50 mls @ 50 mls/hr IV UD PRN PRN Reason: MG = or < 1.7 Ceftriaxone Sodium 2 gm/ (Dextrose) 50 mls @ 100 mls/hr IV Q24H [facility]; Protocol Last Infusion: 04/15/20 09:39 Dose: Infused Documented by: Insulin Human Lispro (Insulin Lispro 1 Unit/0.01 Ml Unit) 0 unit SQ ACHS [facility]; P rotocol Last Admin: 04/15/20 12:22 Dose: 3 unit Documented by: Iron Carb/Multivit/Ops Manager/Folic Acid (Multivit,Ther Iron,Ca,Fa & Min 1 Tablet) 1 tab PO DAILY [facility] Last Admin: 04/15/20 08:32 Dose: 1 tab Documented by: Lisinopril (Lisinopril 5 Mg Tablet) 5 mg PO QDAY [facility] Last Admin: 04/15/20 10:45 Dose: Not Given Documented by: Melatonin (Melatonin 3 Mg Tablet) 3 mg PO HSP PRN PRN Reason: Insomnia Metoprolol Tartrate (Metoprolol Tartrate 5 Mg/5 Ml Vial) 5 mg IV Q5M PRN PRN Reason: Heart Rate > 140 bpm Ondansetron HCl (Ondansetron 4 Mg Odt Tablet) 4 mg SL Q4-6HP PRN; Protocol PRN Reason: Nausea And Vomiting Ondansetron HCl (Ondansetron 4 Mg/2 Ml Vial) 4 mg IV Q4-6HP PRN; Protocol PRN Reason: Nausea And Vomiting Polyethylene Glycol (Polyethylene Glycol 3350 17 Gm Packet) 17 gm PO DAILYP PRN PRN Reason: Constipation Potassium Chloride (Potassium Chloride 10 Meq Tablet) [facility] Last Admin: 04/15/20 08:32 Dose: 20 meq Documented by: Senna/Docusate Sodium (Sennosides/Docusate Sodium 1 Tab Tablet) 1 tab PO [facility] Last Admin: 04/14/20 21:05 Dose: Not Given Documented by: Simvastatin (Simvastatin 10 Mg Tablet) 10 mg PO Q48@2100 [facility] Last Admin: 04/14/20 21:18 Dose: 10 mg Documented by: Sitagliptin Phosphate (Sitagliptin 100 Mg Tablet) 100 mg PO DAILY [facility] Last Admin: 04/15/20 08:32 Dose: 100 mg Documented by: Sodium Chloride (0.9 % Sodium Chloride 10 Ml Syringe) 10 ml IV Q8 [facility] Last Admin: 04/15/20 05:22 Dose: 10 ml Documented by: Trazodone HCl (Trazodone Hcl 50 Mg Tablet) 150 mg PO QHS PRN PRN Reason: insomnia Last Admin: 04/13/20 20:16 Dose: 150 mg Documented by: Warfarin Sodium (Warfarin Per Pharmacy) 1 order PO [facility] Warfarin Sodium (Warfarin 5 Mg Tablet) 5 mg PO ONCE@1400 [facility] Stop: 04/15/20 14:01 A/P Narrative A/P Narrative: * Community-acquired pneumonia: Clinical improvement noted on antibiotic coverage. Continue pulmonary toilet. Covid/influenza negative. * Hypoxic respiratory failure second above. Currently down from 5 L to 2 L oxygen. Improving with adequate diuresis. Wean oxygen as tolerated. Transition to oral diuretics * Decompensated heart failure preserved EF 55%. Responding well to diuresis. Prior history of CAD, follows up with [place] [facility] * Mild IVAN continue close monitoring. Creatinine stable at 1.2. Avoid nephrotoxins. * Chronic atrial fibrillation rate controlled on digoxin. Continue anticoagulation on Coumadin * DM type II diet controlled. Elevated blood sugars. 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
[2020-04-15] MEDS ORDERED: WARFARIN 5 MG TABLET PO ONE (14:00)
[2020-04-15] MEDS ORDERED: DIGOXIN 125 MCG TABLET PO SCH (14:00)
[2020-04-15] MEDS: SENNOSIDES/DOCUSATE SODIUM 1 TAB TABLET PO SCH (20:32)
[2020-04-16] MEDS: IPRATROPIUM/ALBUTEROL 3 ML AMPUL.NEB NEB SCH ×3 (02:53→11:00)
[2020-04-16] MEDS: 0.9 % SODIUM CHLORIDE 10 ML SYRINGE IV SCH (05:43)
[2020-04-16 06:29] LABS: Basophils # (Auto) 0.06 K/mcL (0.00-0.20); Basophils % (Auto) 0.6 % (0.0-2.0); Eosinophils # (Auto) 0.25 K/mcL (0.00-0.70); Eosinophils % (Auto) 2.5 % (0.0-7.0); Hematocrit 36.6 % (41.0-55.0); Hemoglobin 11.6 g/dL (13.5-16.5); Lymphocytes # (Auto) 1.23 K/mcL (1.50-4.80); Lymphocytes % (Auto) 12.1 % (15.0-49.0); Mean Cell Volume 99.5 fL (80.0-100.0); Mean Corpuscular HGB Conc 31.7 g/dL (31.0-36.0); Mean Platelet Volume 9.4 fL (7.4-10.4); Monocytes # (Auto) 0.73 K/mcL (0.10-0.90); Monocytes % (Auto) 7.2 % (1.0-12.0); Neutrophils % (Auto) 77.6 % (38.0-78.0); Platelet Count 124 K/mcL (140-440); RBC 3.68 M/mcL (4.50-5.90); Red Cell Distribution Width 16.4 % (11.5-14.5); WBC 10.1 K/mcL (4.5-11.0)
[2020-04-16 06:38] LABS: INR 1.8 (0.9-1.1); Prothrombin Time 21.7 sec (11.9-14.5)
[2020-04-16 07:51] LABS: ALT/SGPT 18 U/L (<40); AST/SGOT 20 U/L (<40); Albumin 3.5 gm/dL (3.2-5.2); Albumin/Globulin Ratio 1.4 (1.0-2.3); Alkaline Phosphatase 46 U/L (39-117); Bilirubin,Direct < 0.2 mg/dL (0-0.3); Bilirubin,Total 0.5 mg/dL (0.1-1.0); Blood Urea Nitrogen 34 mg/dL (8-23); Calcium 8.8 mg/dL (8.6-10.4); Carbon Dioxide 30 mmol/L (22-30); Chloride 98 mmol/L (96-108); Globulin 2.5 gm/dL (2.2-3.7); Glomerular Filtration Rate 55; Glucose 124 mg/dL (70-105); Lactate Dehydrogenase 253 U/L (135-225); Phosphorous 3.7 mg/dL (2.5-4.5); Triglycerides 84 mg/dL (<150); Uric Acid 6.9 mg/dL (2.5-8.0)
[2020-04-16] MEDS ORDERED: predniSONE 5 MG TABLET PO SCH (08:00)
[2020-04-16] MEDS: BUDESONIDE 0.5 MG/2 ML AMPUL.NEB NEB SCH (08:01)
[2020-04-16] MEDS: INSULIN LISPRO 1 UNIT/0.01 ML UNIT SQ SCH ×2 (08:07→11:44)
[2020-04-16] MEDS: sitaGLIPtin 100 MG TABLET PO SCH (08:17)
[2020-04-16] MEDS: FUROSEMIDE 80 MG TABLET PO SCH (08:17)
[2020-04-16] MEDS: ALLOPURINOL 100 MG TABLET PO SCH (08:18)
[2020-04-16] MEDS: POTASSIUM CHLORIDE 10 MEQ TABLET PO SCH (08:18)
[2020-04-16] MEDS: HEPARIN 5,000 UNIT/ML VIAL SQ SCH (08:18)
[2020-04-16] MEDS: LISINOPRIL 5 MG TABLET PO SCH (08:19)
[2020-04-16] MEDS: MULTIVIT,THER IRON,CA,FA & MIN 1 TABLET PO SCH (08:19)
[2020-04-16] MEDS: DOCUSATE SODIUM 100 MG CAPSULE PO SCH (08:19)
[2020-04-16] MEDS: DILTIAZEM 240 MG CAP.XL.24H PO SCH (08:19)
[2020-04-16] MEDS: cefTRIAXone 2 GM in DEXTROSE 5% IN WATER 50 ML IV SCH (09:11)
--- NOTE | 2020-04-16 10:57 | Discharge Summary ---
Discharge Provider Provider Patient information: Note initiated : 04/16/20 at 10:54 am Service Date, if different from initiated Date: [] Patient: Shelby Ruff a 85 y/o M admitted on 04/13/20 for Shortness of breath. Discharge diagnosis * Community-acquired pneumonia: Clinical improvement noted on antibiotic coverage. Continue additional 3 days oral antibiotics * Hypoxic respiratory failure second above. Currently down from 5 L to 1 L oxygen. Perform exercise oximetry and discharge home oxygen if qualifies prior to discharge. * Decompensated heart failure preserved EF 55%. Responded well to diuresis. Prior history of CAD, follows up with [facility]. Continue outpatient follow-up with [facility] on discharge * Mild IVAN continue close monitoring. Creatinine stable at 1.2. Avoid nephrotoxins. * Chronic atrial fibrillation rate controlled on digoxin. Continue anticoagulation on Coumadin * DM type II diet controlled. Elevated blood sugars. Continue sliding scale insulin/sitagliptin * History of hypertension continue VENKATESH inhibitor, start low-dose beta-godfrey * h/o CAD w/angioplasty: Brief hospital course History of present illness: Mr. Ruff is a 85 year old M with a history of atrial fibrillation on anticoagulation/hypertension/hyperlipidemia/gout who was in his baseline state of health until roughly 5 days prior to presentation started experiencing gradually progressive dyspnea limiting his activities of daily living. For the last couple of nights he has not been able to lay down flat and was unable to sleep due to profound shortness of breath. This morning he became increasingly concerned and presents to the ER for evaluation. He denied associated fever, productive sputum, lightheadedness, loss of consciousness, hemoptysis. Patient carries a history of COPD/CAD and has followed up with cardiology in the past. He follows up with PCP Jose Michelle. Denies recent changes in dietary habits/high salt intake/NSAID intake/ exposure to sick contacts or Covid-like symptoms Initial work-up in the ER was consistent with bilateral chest infiltrates. Patient was started on antibiotic coverage after cultures were drawn. Last echocardiogram reviewed from 2017. Hospital service was consulted for admission in light of abov. At the time of my evaluation patient is alert and respond to commands/cooperative but unable to talk in full sentences. He is profoundly orthopneic. He endorses to increasing lower extremity swelling/lymphedema. His last episode of pneumonia was in December 08-patient doing well. Swelling diuretics. Over 2000 cc net negative fluid balance. Echocardiogram pending. Improved shortness of breath/orthopnea. Currently down from 5 L to 3 L oxygen. No additional concerns per nursing staff. White count 10,000. 04/15-patient doing better. However systolics mid 90s. Diuretics switched to p.o. and antihypertensives held this morning. Patient feels a lot better. Resolved orthopnea and currently on 2 L oxygen. Weaning oxygen as tolerated. Ongoing physical therapy. Tolerating diet. Will likely discharge in 24 hours 04/16-patient doing a lot better. Feels at baseline. Labs and hemodynamics stable. Rate controlled. Currently on 1 L oxygen. Exercise oximetry for home oxygen qualification. Discharging home with advised to continue follow-up with primary care physician. Continue antibiotic for pneumonia. Recommend outpatient follow-up with [facility]. Date of admission: 04/13/20 17:05 Discharge date: 04/16/20 Primary care physician: Doug Hernandez M.D., F.A.A.F.P. Consults: 04/13/20 Consult to Physician [CONS] Stat Comment: Consulting Provider: Woody Hudson Reason For Exam: Physician to Consult Discharge Meds Discharge Medications Home Medications warfarin 5 mg tablet See Rx Instructions PO QMWF #60 tab 08/12/19 [Rx Confirmed 04/13/20 Last Taken 12/25/19 07:30] diltiazem HCl 120 mg capsule,extended release 24 hr 240 mg PO QDAY #180 cap 08/25/19 [Rx Confirmed 04/13/20 Last Taken 12/25/19 07:30] furosemide 80 mg tablet 40 mg PO QDAY #45 tab 08/25/19 [Rx Confirmed 04/13/20 Last Taken 12/25/19 07:30] lisinopril 5 mg tablet 5 mg PO QDAY #90 tab 08/25/19 [Rx Confirmed 04/13/20 Last Taken 12/25/19 07:30] potassium chloride 10 mEq tablet,extended release 20 meq PO QDAY #180 tab 08/25/19 [Rx Confirmed 04/13/20 Last Taken 12/25/19 07:30] trazodone 50 mg tablet 150 mg PO QHS PRN #270 tab 08/25/19 [Rx Confirmed 04/13/20 Last Taken 12/24/19 07:30] digoxin 250 mcg (0.25 mg) tablet See Rx Instructions .ROUTE .COMPLEX #68 tab 10/01/19 [Rx Confirmed 04/13/20 Last Taken 12/25/19 07:30] pravastatin 40 mg tablet See Rx Instructions .ROUTE .COMPLEX #23 tab 10/01/19 [Rx Confirmed 04/13/20 Last Taken Unknown] allopurinol 100 mg tablet 200 mg PO QDAY #180 tab 01/15/20 [Rx Confirmed 04/13/20 Last Taken Unknown] prednisone 5 mg tablet 5 mg PO QDAY #90 tab 03/31/20 [Rx Confirmed 04/13/20 Last Taken Unknown] cefdinir 300 mg PO BID #6 cap 04/16/20 [Rx Last Taken Unknown] COURSE Hospital Course Hospital course: . Discharge diagnosis: Decompensated heart failure/lower lobe pneumonia Time Spent with Patient Time attestation: Total time spent providing and/or coordinating discharge services: EXAM Constitutional Vitals: Temp Pulse Resp BP Pulse Ox 98.1 F 115 H 12 120/80 91 04/16/20 08:00 04/16/20 10:04 04/16/20 08:00 04/16/20 10:04 04/16/20 10:01 Discharge Data Data Completed and Pending Labs on day of discharge: Labs from last 24 hours 04/16/20 04/16/20 04/16/20 05:06 05:06 05:05 WBC 10.1 RBC 3.68 L Hgb 11.6 L Hct 36.6 L MCV 99.5 MCH 31.5 MCHC 31.7 RDW 16.4 H Plt Count 124 L MPV 9.4 Neut % (Auto) 77.6 Lymph % (Auto) 12.1 L [place] % (Auto) 7.2 Eos % (Auto) 2.5 Baso % (Auto) 0.6 Lymph # (Auto) 1.23 L [place] # (Auto) 0.73 Eos # (Auto) 0.25 Baso # (Auto) 0.06 Absolute Neutrophils 7.87 PT 21.7 H INR 1.8 H Sodium 135 Potassium 4.6 Chloride 98 Carbon Dioxide 30 Anion Gap 7.0 L BUN 34 H Creatinine 1.2 GFR Calculation 55 Glucose 124 H Uric Acid 6.9 Calcium 8.8 Phosphorus 3.7 Magnesium 2.4 Total Bilirubin 0.5 Direct Bilirubin < 0.2 GGT 22 AST 20 ALT 18 Alkaline Phosphatase 46 Lactate Dehydrogenase 253 H Total Protein 6.0 Albumin 3.5 Globulin 2.5 Albumin/Globulin Ratio 1.4 Triglycerides 84 Preliminary micro results at discharge 04/13/20 09:39 Blood Culture - Preliminary Blood 04/13/20 09:33 Blood Culture - Preliminary Blood Discharge Plan Patient/Caregiver Discharge Instructions Activity Restrictions/Additional Instructions: Follow [facility] on discharge Follow-up PCP in 5 to 7 days Continue diuretics return to ER if worsening fever chills shortness of breath Maintain low-salt diet Continue antibiotic for additional 3 days Prescriptions: New cefdinir 300 MG capsule 300 mg PO BID Qty: 6 RF: 0 Continued warfarin 5 mg tablet See Rx Instructions PO QMWF Qty: 60 RF: 4 diltiazem HCl [Cartia XT] 120 mg capsule,extended release 24hr 240 mg PO QDAY Qty: 180 RF: 4 trazodone 50 mg tablet 150 mg PO QHS PRN (Reason: insomnia) Qty: 270 RF: 4 furosemide [Lasix] 80 mg tablet 40 mg PO QDAY Qty: 45 RF: 4 lisinopril 5 mg tablet 5 mg PO QDAY Qty: 90 RF: 4 potassium chloride 10 mEq tablet extended release 20 meq PO QDAY Qty: 180 RF: 4 pravastatin 40 mg tablet See Rx Instructions .ROUTE .COMPLEX Qty: 23 RF: 6 digoxin 250 mcg (0.25 mg) tablet See Rx Instructions .ROUTE .COMPLEX Qty: 68 RF: 4 allopurinol 100 mg tablet 200 mg PO QDAY Qty: 180 RF: 3 prednisone 5 mg tablet 5 mg PO QDAY Qty: 90 RF: 1 Follow Up Plan Follow up with: Doug Hernandez MD, FAAFP [Primary Care Provider] - Patient Disposition: Home, Self-Care Rehab Potential: Fair I certify that the patient requires SNF services: No Overall status at discharge: patient is progressing back to baseline Discharge Orders: Discharge Order (Routine); Ordered 04/16/20 Ordered By: Woody RODRÍGUEZ VTE Deep Vein Thrombosis/Pulmonary Embolism Present on Admission: Yes
[2020-04-16] MEDS ORDERED: WARFARIN 7.5 MG TABLET PO ONE (14:00)
== END 2020-04-16 13:13 | disposition home or self-care (01) | DRG 193 ==
LOC: ED 09:07 → ICU 17:05
PROVIDERS: ADMIT Internal Medicine; ATTEND Internal Medicine

== ENCOUNTER 2021-08-09 11:39 | Inpatient (IN) ==
[2021-08-09 12:12] LABS: POC Calcium, Ionized 1.16 (1.16-1.32); POC Creatinine 1.2 (0.6-1.2)
--- NOTE | 2021-08-09 12:16 | Emergency Department Note ---
SOB HPI General Chief Complaint: Shortness of Breath/Dyspnea Stated Complaint: Needs oxygen Time Seen by Provider: 08/09/21 12:09 Source: patient Mode of arrival: ambulatory Limitations: no limitations History of Present Illness HPI Narrative: Narrative: This is a pleasant 86-year-old male with a history of chronic A. fib on warfarin, type 2 diabetes, hyperlipidemia, hypertension, mitral regurg,, TAVR, coronary artery disease, CHF presents emergency department with complaints of shortness of breath for the last week. He states that at rest he is feeling okay but then whenever he exerts himself he gets short of breath. He has a pulse oximeter at home and it was a reading mid to high 80s in the last week. He does have a history of being on oxygen for about 6 months or so after he had pneumonia but has not been needing oxygen since last fall. He denies fever, URI symptoms, chest pain, abdominal pain, nausea, vomiting, diaphoresis, lower extremity pain. He denies worsening of his lower extremity edema. He denies any recent procedures or surgeries. No history of DVT or PE. Related Data Home Medications Medication Instructions Recorded Confirmed pravastatin 40 mg tablet 20 mg PO Q2D tab 03/23/21 06/03/21 warfarin 5 mg tablet See Rx Instructions PO .COMPLEX 04/20/21 07/29/21 tab Previous Rx's Medication Instructions Recorded furosemide 80 mg tablet (Lasix) 40 mg PO QDAY #45 tab 08/25/19 trazodone 50 mg tablet 150 mg PO QHS PRN #270 tab 08/25/19 lisinopril 5 mg tablet 5 mg PO QDAY #90 tab 11/16/20 diltiazem HCl 120 mg 240 mg PO QDAY #180 cap 06/09/21 capsule,extended release 24 hr (Cartia XT) potassium chloride 10 mEq 20 meq PO QDAY #180 tab 06/09/21 tablet,extended release allopurinol 100 mg tablet 200 mg PO QDAY #180 tab 07/18/21 Allergies Allergy/AdvReac Type Severity Reaction Status Date / Time No Known Drug Intolerances AdvReac Unknown Unknown Verified 08/09/21 11:45 Review of Systems ROS ROS Narrative: Narrative: All systems ED: reviewed and negative except as stated. FOR[facility]LY [facility] Narrative Patient History Narrative: Narrative: Medical/Surgical/Family History All Active Problems Annual physical exam (Acute) Anticoagulant long-term use (Chronic) Anticoagulant long-term use (Acute) Atrial fibrillation (Chronic) Atrial flutter (Chronic) Closed fracture (Acute) Colon polyps (Acute) Degenerative arthritis (Chronic) DM type 2 (diabetes mellitus, type 2) (Chronic) Edema (Chronic) Gallstones without obstruction of gallbladder (Chronic) Gout (Chronic) Hyperlipidemia (Chronic) Hypertension (Chronic) Ischemic heart disease, chronic (Chronic) Myocardial infarction, old (Acute) Peripheral neuropathy (Acute) History of tobacco use (Chronic) Weight loss (Acute) History of angioplasty (Acute) History of cardiac catheterization (Acute) History of colonoscopy (Acute) History of right knee surgery (Acute) History of surgery (Acute) Encounter for Health Maintenance Examination in Adult (Chronic) Colon polyp (Chronic) Aortic stenosis (Chronic) Polyarthralgia (Acute) CRP elevated (Acute) LOUISE positive (Acute) Rheumatoid factor negative (Acute) Hyperuricemia (Chronic) Inflammatory arthropathy (Acute) [facility] systemic 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 (Chronic) Long-term use of high-risk medication (Chronic) Pneumonia (Acute) Congestive heart failure (Acute) Wound of left upper extremity (Acute) Mitral regurgitation (Acute) Coronary artery disease (Acute) Coronary atherosclerosis (Acute) Severe mitral regurgitation (Acute) Obesity (Acute) Medicare annual wellness visit, initial (Acute) CHF (congestive heart failure) (Acute) Chest wall muscle strain (Acute) Medical History LOUISE positive Anticoagulant long-term use 03/21/2013. Anticoagulant use; chronic Anticoagulant long-term use Anticoagulation syndrome. Chronic. Extensive cardiology review with echo and cardiolite in April of 2010. Last review with Dr. Olsen in April of 2011. Aortic stenosis update echo 09/2019 Atrial fibrillation 04/11/2013 Atrial flutter Cardioverted in 2004 with recurrence of atrial fibrillation/flutter in Mar, relegated to rate control and chronic anticoagulation; extensive cardiology review with echo and cardiolite in April of 2010, last review with Dr. Olsen in April of 2011. CHF (congestive heart failure) Closed fracture Cervical vetebral fracture; closed. Previous traumatic C2 fracture in November of 2008, followed to stabilizaton Colon polyps 2008 hyperplastic polyp. 05/16/12 colonoscopy -- Dr. Howard -- tubular adenomas. 5-year sequence. Coronary artery disease Coronary atherosclerosis CRP elevated Degenerative arthritis Most symptomatic in left knee 04/2012 DM type 2 (diabetes mellitus, type 2) Adult onset non insulin dependent diabetes. Metformin; mild peripheral neuropathy, taper off med in lieu of age and risk for complications with recent A1C of 5.4. Edema Encounter for Health Maintenance Examination in Adult Gallstones without obstruction of gallbladder Asymptomatic gallstones on ultrasound in 2006 Gout History of tobacco use Quit in 1985. Last chest x-ray in Mar, does not require routine screening; minimal oral tobacco use - recounseled in this regard. 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 2008 hyperplastic polyp. 05/16/12 Colonoscopy -- Dr. oHward -- tubular adenomas. 5-year sequence History of right knee surgery 11/2007 History of surgery 1985; stent placement Family History Sister Malignant neoplasm of breast 2 sisters had breast cancer Social History Smoking Status: Former smoker Alcohol Intake Frequency: holiday/special occasion only Substance Use: does not use Exam Narrative Narrative: Narrative: General Limitations: no limitations General appearance: Present in no apparent distress Head Head: Present atraumatic and normocephalic Respiratory Respiratory: Present other (Decreased breath signs in right lower lung field. Otherwise no rhonchi rales or wheezes.) Cardiovascular Cardiovascular: Present irregular rhythm and other (2 out of 6 apical holosy stolic murmur) Adbominal Abdominal: Present soft and other (Nontender to palpation) Extremities Extremities: Present other (Negative Homans' sign bilaterally. +2 pitting edema bilaterally.) Neurological Neurological: Present alert and oriented X3 Psychiatric Psychiatric: Present normal affect and normal mood Skin Skin: Present other (Ecchymosis to upper extremities bilaterally.) Course Vital Signs Vital signs: Vital Signs Temperature 97.7 F 08/09/21 11:42 Pulse Rate 65 08/09/21 11:42 Respiratory Rate 20 08/09/21 11:42 Blood Pressure 116/58 08/09/21 11:42 Pulse Oximetry (%) 85 L 08/09/21 11:42 Temperature 97.7 F 08/09/21 11:42 Pulse Rate 66 08/09/21 17:01 Respiratory Rate 22 08/09/21 12:31 Blood Pressure 131/78 08/09/21 17:01 Pulse Oximetry (%) 96 08/09/21 17:01 MDM MDM Narrative Medical decision making narrative: Narrative: CBC reviewed and unremarkable I-STAT chemistry reviewed unremarkable I-STAT troponin within normal range Culup-is-hasf lactic acid normal Hepatic function reviewed unremarkable Chest x-ray 1. Previous TAVR 2. Cardiomegaly, unchanged. No evidence for congestive heart failure 3. Right pleural effusion. Right middle lobe and lower lobe volume loss Interpreted and Authenticated by: Manuel Ochoa 08/09/21 EKG shows atrial fibrillation. Normal axis, narrow QRS QTC borderline at 442 there is no signs of Brugada, Dizmv-Nanshdikd-Qwwsn or HOCM. No dagger Q waves. Compared to previous ECG there is now upright T wave in lead III otherwise no acute changes. My interpretation is atrial fibrillation with nonspecific T wave abnormalities. Previous ECG compared to was 04/13/2020 The patient's pleural effusion was too small to drain and his INR was 2.5 and they want it below 2 to do it. They think that his shortness of breath is most likely due to congestive heart failure and that we should try Lasix first. I think this is reasonable. I did give him a dose of 60 mg IV Lasix and after 2 hours we took the patient off of his oxygen and he was still hypoxic into the low 80s which was an improvement as when he first got here he was at 75% on room air. He is currently on 2 L nasal cannula to maintain his oxygen saturation in mid 90s. Since he has a pleural effusion hypoxia with congestive heart failure he does meet inpatient criteria and he is willing to be admitted. I spoke with Dr. Powers who agrees to admit the patient for further evaluation and treatment. Lab Data Result diagrams: 08/09/21 12:37 Labs: Lab Results 08/09/21 08/09/21 08/09/21 Range/Units 12:09 12:09 12:37 WBC 8.9 (4.5-11.0) K/mcL RBC 3.62 L (4.63-6.08) M/mcL Hgb 12.0 L (13.7-17.5) g/dL Hct 37.4 L (40.1-51.0) % POC Hct 37.0 L (41-55) MCV 103.3 H (80.0-100.0) fL MCH 33.1 (26.0-34.0) pg MCHC 32.1 (31.0-36.0) g/dL RDW 15.2 H (11.5-14.5) % Plt Count 108 L (140-440) K/mcL MPV 9.1 (7.4-10.4) fL Immature Gran % (Auto) 1.0 H (0.0-0.5) % Neut % (Auto) 81.3 H (38.0-78.0) % Lymph % (Auto) 7.7 L (15.5-49.0) % [place] % (Auto) 6.4 (1.0-12.0) % Eos % (Auto) 2.8 (0.0-7.0) % Baso % (Auto) 0.8 (0.0-2.0) % Lymph # (Auto) 0.69 L (1.50-4.80) K/mcL [place] # (Auto) 0.57 (0.10-0.90) K/mcL Eos # (Auto) 0.25 (0.00-0.70) K/mcL Baso # (Auto) 0.07 (0.00-0.30) K/mcL Immature Gran # 0.09 H (0.00-0.05) K/mcl Absolute Neutrophils 7.36 (1.80-8.00) K/mcL PT (11.9-14.5) sec INR (0.9-1.1) POC VBG pH 7.38 (7.32-7.42) POC VBG pCO2 at Temp 48.8 (41-51) POC VBG pO2 68 H (25-40) POC VBG HCO3 29.2 H (24-28) POC VBG Total CO2 31.0 H (25-29) POC Venous O2 Sat 93.0 H (40-70) POC VBG Base Excess 4.0 H* (-2-2) POC Sodium 138 (133-145) POC Potassium 5.0 (3.3-5.1) POC Chloride 101 (96-108) POC Total CO2 27.0 (22-30) POC BUN 34 H (6-20) POC Creatinine 1.2 (0.6-1.2) POC Glucose 113 H (70-105) POC Venous Lactate 0.7 (0.5-2) POC WB Ioniz Calcium 1.16 (1.16-1.32) Total Bilirubin (0.1-1.0) mg/dL Direct Bilirubin (0-0.3) mg/dL AST (<40) U/L ALT (<40) U/L Alkaline Phosphatase (39-117) U/L NT-Pro-B Natriuret Pep (<450.0) pg/mL Total Protein (5.9-8.4) gm/dL Albumin (3.2-5.2) gm/dL Globulin (2.2-3.7) gm/dL POC Troponin I (0.02-0.08) 08/09/21 08/09/21 08/09/21 Range/Units 12:37 12:37 13:15 WBC (4.5-11.0) K/mcL RBC (4.63-6.08) M/mcL Hgb (13.7-17.5) g/dL Hct (40.1-51.0) % POC Hct (41-55) MCV (80.0-100.0) fL MCH (26.0-34.0) pg MCHC (31.0-36.0) g/dL RDW (11.5-14.5) % Plt Count (140-440) K/mcL MPV (7.4-10.4) fL Immature Gran % (Auto) (0.0-0.5) % Neut % (Auto) (38.0-78.0) % Lymph % (Auto) (15.5-49.0) % [place] % (Auto) (1.0-12.0) % Eos % (Auto) (0.0-7.0) % Baso % (Auto) (0.0-2.0) % Lymph # (Auto) (1.50-4.80) K/mcL [place] # (Auto) (0.10-0.90) K/mcL Eos # (Auto) (0.00-0.70) K/mcL Baso # (Auto) (0.00-0.30) K/mcL Immature Gran # (0.00-0.05) K/mcl Absolute Neutrophils (1.80-8.00) K/mcL PT 28.1 H (11.9-14.5) sec INR 2.5 H (0.9-1.1) POC VBG pH (7.32-7.42) POC VBG pCO2 at Temp (41-51) POC VBG pO2 (25-40) POC VBG HCO3 (24-28) POC VBG Total CO2 (25-29) POC Venous O2 Sat (40-70) POC VBG Base Excess (-2-2) POC Sodium (133-145) POC Potassium (3.3-5.1) POC Chloride (96-108) POC Total CO2 (22-30) POC BUN (6-20) POC Creatinine (0.6-1.2) POC Glucose (70-105) POC Venous Lactate (0.5-2) POC WB Ioniz Calcium (1.16-1.32) Total Bilirubin 0.5 (0.1-1.0) mg/dL Direct Bilirubin < 0.2 (0-0.3) mg/dL AST 19 (<40) U/L ALT 15 (<40) U/L Alkaline Phosphatase 65 (39-117) U/L NT-Pro-B Natriuret Pep 2355.0 H (<450.0) pg/mL Total Protein 7.0 (5.9-8.4) gm/dL Albumin 4.0 (3.2-5.2) gm/dL Globulin 3.0 (2.2-3.7) gm/dL POC Troponin I 0.01 L (0.02-0.08) Discharge Plan Patient/Caregiver Discharge Instructions Pt seen by EXECUTIVE MEETING MANAGER/PA only: Yes Patient Disposition: Xfer As Inpt ([facility]) Condition: Serious Follow up with: Jaziel Joseph MD [Primary Care Provider] - Prescriptions: No Action trazodone 50 mg tablet 150 mg PO QHS PRN (Reason: insomnia) Qty: 270 4RF furosemide [Lasix] 80 mg tablet 40 mg PO QDAY Qty: 45 4RF lisinopril 5 mg tablet 5 mg PO QDAY Qty: 90 4RF diltiazem HCl [Cartia XT] 120 mg capsule,extended release 24hr 240 mg PO QDAY Qty: 180 0RF potassium chloride 10 mEq tablet extended release 20 meq PO QDAY Qty: 180 0RF allopurinol 100 mg tablet 200 mg PO QDAY Qty: 180 3RF Rx Instructions: Increased at last visit to 200 mg qd pravastatin 40 mg tablet 20 mg PO Q2D 0RF warfarin 5 mg tablet See Rx Instructions mg PO .COMPLEX 0RF Protocol: Dose Management Condition: Sunday Dose/Route: 7.5 mg Instruction: 1.5 x 5 mg tablets Condition: Sunday Dose/Route: 7.5 mg Instruction: 1.5 x 5 mg tablets Condition: Sunday Dose/Route: 5 mg Instruction: 1 x 5 mg tablet Condition: Sunday Dose/Route: 7.5 mg Instruction: 1.5 x 5 mg tablets Condition: Dose/Route: 5 mg Instruction: 1 x 5 mg tablet Condition: Sunday Dose/Route: 7.5 mg Instruction: 1.5 x 5 mg tablets Condition: Sunday Dose/Route: 5 mg Instruction: 1 x 5 mg tablet Protocol Text: Adjustment Start Date: Sunday07/29/21 INR Value: 2.4 INR Date: 07/29/21 Recheck Date: 08/28/21 Rx Instructions: 7.5 mg Sun,Sun,Sun,Sun; 5 mg the other 3 days
--- NOTE | 2021-08-09 13:05 | XRay Report ---
INDICATION: SOB, hypoxia, decreased lung sounds RLL TECHNIQUE: PA and lateral upright chest x-ray COMPARISON: Previous chest x-rays dated 11/23/2020, 06/16/2020, 06/09/2020 FINDINGS: Previous TAVR. Prosthesis is in unchanged position. Lungs: Left lung is negative. No parenchymal infiltrate or mass. Right lower lobe and right middle lobe are not well evaluated due to overlying pleural fluid. There is probable atelectasis. Heart, vascular: No cardiomegaly. No pulmonary edema. No interval change Mediastinum, jacobo: No mediastinal widening. No hilar mass Pleura:Blunting of the right costophrenic angle and posterior costophrenic sulcus consistent with moderate right pleural effusion. This is increased since 11/23/2020 Thoracic spine, ribs: No thoracic compression fracture. Ribs are negative. No fracture. No lytic lesion IMPRESSION: 1. Previous TAVR 2. Cardiomegaly, unchanged. No evidence for congestive heart failure 3. Right pleural effusion. Right middle lobe and lower lobe volume loss Interpreted and Authenticated by: Manuel Ochoa 08/09/21
[2021-08-09 13:14] LABS: Basophils # (Auto) 0.07 K/mcL (0.00-0.30); Basophils % (Auto) 0.8 % (0.0-2.0); Eosinophils # (Auto) 0.25 K/mcL (0.00-0.70); Eosinophils % (Auto) 2.8 % (0.0-7.0); Hematocrit 37.4 % (40.1-51.0); INR 2.5 (0.9-1.1); Lymphocytes # (Auto) 0.69 K/mcL (1.50-4.80); Lymphocytes % (Auto) 7.7 % (15.5-49.0); Mean Cell Volume 103.3 fL (80.0-100.0); Mean Corpuscular HGB Conc 32.1 g/dL (31.0-36.0); Mean Platelet Volume 9.1 fL (7.4-10.4); Monocytes # (Auto) 0.57 K/mcL (0.10-0.90); Monocytes % (Auto) 6.4 % (1.0-12.0); Neutrophils % (Auto) 81.3 % (38.0-78.0); Platelet Count 108 K/mcL (140-440); Prothrombin Time 28.1 sec (11.9-14.5); RBC 3.62 M/mcL (4.63-6.08); Red Cell Distribution Width 15.2 % (11.5-14.5); WBC 8.9 K/mcL (4.5-11.0)
[2021-08-09 13:24] LABS: ALT/SGPT 15 U/L (<40); AST/SGOT 19 U/L (<40); Alkaline Phosphatase 65 U/L (39-117); Bilirubin,Direct < 0.2 mg/dL (0-0.3); Bilirubin,Total 0.5 mg/dL (0.1-1.0)
[2021-08-09] MEDS ORDERED: FUROSEMIDE 100 MG/10 ML VIAL IV ONE (14:26)
--- NOTE | 2021-08-09 15:06 | Ultrasound Report ---
INDICATION: Evaluate fluid volume for thoracentesis. TECHNIQUE: Routine soft tissue ultrasound. COMPARISON: Chest x-ray dated 08/09/2021 FINDINGS: Small to moderate right pleural effusion. Is patient INR measures 2.5. This [id number] pleural effusion is probably on the basis of cardiac decompensation. Diuresis may be helpful. If thoracentesis is felt to be indicated this could be attempted. INR should be 2.0 or less. IMPRESSION: Small to moderate right pleural effusion, probably related to right heart failure Interpreted and Authenticated by: Manuel Ochoa 08/09/21
--- NOTE | 2021-08-09 17:34 | Internal Med History&Physical ---
HPI History of Present Illness Patient information: Note initiated : 08/09/21 at 5:24 pm Service Date, if different from initiated Date: [] Patient: Shelby Ruff a 86 y/o M admitted on for Needs oxygen. Chief Complaint: [] History of present illness: Mr. Ruff is a 86 year old M Patient complaining of shortness of breath for 1 week especially dyspnea on exertion. He has a chronic cough but no change. He says his weight maintained the same. Does have peripheral edema and says that is about the same. Denies fever chills nausea vomiting sick contacts or traveling. In the ED he was 85% on room air. Does have history of A. fib and is on warfarin and diltiazem. INR was 2.5. In pulses within normal limits. Chest today done in ED which shows a right-sided effusion with atelectasis with some pulmonary congestion and some fluid in the fissure on the right. Patient given IV Lasix in the ED 60 mg, urine output so far 600 mL. Review of Systems: Pertinent positives as above. Denies headache/fever/chills/nausea/vomiting/chest or abdominal pain/diarrhea. Remaining 10 point review of system reviewed negative PFSH PFSH All Active Problems Annual physical exam (Acute) Anticoagulant long-term use (Chronic) Anticoagulant long-term use (Acute) Atrial fibrillation (Chronic) Atrial flutter (Chronic) Closed fracture (Acute) Colon polyps (Acute) Degenerative arthritis (Chronic) DM type 2 (diabetes mellitus, type 2) (Chronic) Edema (Chronic) Gallstones without obstruction of gallbladder (Chronic) Gout (Chronic) Hyperlipidemia (Chronic) Hypertension (Chronic) Ischemic heart disease, chronic (Chronic) Myocardial infarction, old (Acute) Peripheral neuropathy (Acute) History of tobacco use (Chronic) Weight loss (Acute) History of angioplasty (Acute) History of cardiac catheterization (Acute) History of colonoscopy (Acute) History of right knee surgery (Acute) History of surgery (Acute) Encounter for Health Maintenance Examination in Adult (Chronic) Colon polyp (Chronic) Aortic stenosis (Chronic) Polyarthralgia (Acute) CRP elevated (Acute) LOUISE positive (Acute) Rheumatoid factor negative (Acute) Hyperuricemia (Chronic) Inflammatory arthropathy (Acute) FDC systemic 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 (Chronic) Long-term use of high-risk medication (Chronic) Pneumonia (Acute) Congestive heart failure (Acute) Wound of left upper extremity (Acute) Mitral regurgitation (Acute) Coronary artery disease (Acute) Coronary atherosclerosis (Acute) Severe mitral regurgitation (Acute) Obesity (Acute) Medicare annual wellness visit, initial (Acute) CHF (congestive heart failure) (Acute) Chest wall muscle strain (Acute) Medical History LOUISE positive Anticoagulant long-term use 03/21/2013. Anticoagulant use; chronic Anticoagulant long-term use Anticoagulation syndrome. Chronic. Extensive cardiology review with echo and cardiolite in April of 2010. Last review with Dr. Olsen in April of 2011. Aortic stenosis update echo 09/2019 Atrial fibrillation 04/11/2013 Atrial flutter Cardioverted in 2004 with recurrence of atrial fibrillation/flutter in Mar, relegated to rate control and chronic anticoagulation; extensive cardiology review with echo and cardiolite in April of 2010, last review with Dr. Olsen in April of 2011. CHF (congestive heart failure) Closed fracture Cervical vetebral fracture; closed. Previous traumatic C2 fracture in November of 2008, followed to stabilizatolb Colon polyps 2008 hyperplastic polyp. 05/16/12 colonoscopy -- Dr. Howard -- tubular adenomas. 5-year sequence. Coronary artery disease Coronary atherosclerosis CRP elevated Degenerative arthritis Most symptomatic in left knee 04/2012 DM type 2 (diabetes mellitus, type 2) Adult onset non insulin dependent diabetes. Metformin; mild peripheral neuropathy, taper off med in lieu of age and risk for complications with recent A1C of 5.4. Edema Encounter for Health Maintenance Examination in Adult Gallstones without obstruction of gallbladder Asymptomatic gallstones on ultrasound in 2006 Gout History of tobacco use Quit in 1985. Last chest x-ray in Mar, does not require routine screening; minimal oral tobacco use - recounseled in this regard. Hyperlipidemia Pravachol Hypertension Hyperuricemia Inflammatory arthropathy Ischemic heart disease, chronic With distant history of inferior myocardial infarction and angioplasty//cardiolyte 09/2015 FDC systemic 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 Long-term use of high-risk medication Medicare annual wellness visit, initial Mitral regurgitation Myocardial infarction, old Distant history of Obesity Peripheral neuropathy Mild Polyarthralgia Rheumatoid factor negative Severe mitral regurgitation Weight loss 53 pound purposeful weight loss as of 04/08/12 Wound of left upper extremity Surgical History Heart valve replaced 06/09/20 [place] History of angioplasty 1985 History of cardiac catheterization Evidence on a distant catheterization of a 90% stenosis of a small diagonal branch of the left anterior descending History of cardioversion (~09/2004) History of colonoscopy 05/16/12. 2008 hyperplastic polyp. 05/16/12 Colonoscopy -- Dr. Howard -- tubu lar adenomas. 5-year sequence History of right knee surgery 11/2007 History of surgery 1985; stent placement Family History Sister Malignant neoplasm of breast 2 sisters had breast cancer Social History household members: spouse housing: house marital status: occupational status: retired occupation: [employer] alcohol intake frequency: holiday/special occasion only substance use type: does not use MEDS/ALLERGIES Home Medications and Allergies Home Medications Medication Instructions Recorded Confirmed Type furosemide 80 mg tablet (Lasix) 40 mg PO QDAY #45 tab 08/25/19 06/03/21 Rx trazodone 50 mg tablet 150 mg PO QHS PRN #270 tab 08/25/19 06/03/21 Rx lisinopril 5 mg tablet 5 mg PO QDAY #90 tab 11/16/20 06/03/21 Rx pravastatin 40 mg tablet 20 mg PO Q2D tab 03/23/21 06/03/21 History warfarin 5 mg tablet See Rx Instructions PO .COMPLEX 04/20/21 07/29/21 History tab diltiazem HCl 120 mg 240 mg PO QDAY #180 cap 06/09/21 Rx capsule,extended release 24 hr (Cartia XT) potassium chloride 10 mEq 20 meq PO QDAY #180 tab 06/09/21 Rx tablet,extended release allopurinol 100 mg tablet 200 mg PO QDAY #180 tab 07/18/21 Rx Allergies Allergy/AdvReac Type Severity Reaction Status Date / Time No Known Drug Intolerances AdvReac Unknown Unknown Verified 08/09/21 11:45 EXAM Constitutional Vitals: Temp Pulse Resp BP Pulse Ox 97.7 F 66 22 131/78 96 08/09/21 11:42 08/09/21 17:01 08/09/21 12:31 08/09/21 17:01 08/09/21 17:01 Exam: General: Alert, Awake, No acute Distress, obese Eyes/N/T: EOMI, PERRL, Head/Neck: neck supple, normocephalic atraumatic CV: Irreg irregular, no murmurs, normal s1/s2 Pulm: Severely diminished on the right, subtle mild rales on the left base, no wheezing Abd: soft, nontender, +BS x4 Ext: no clubbing/cyanosis, 2-3+ b/l LE Edema Neuro: Alert, no focal deficits, moves all extremities, CN 2-12 grossly intact, symmetrical strength b/l upper/lower, sensations intact b/l upper/lower Skin: warm/dry DATA Data Completed and Pending Labs: Labs from last 24 hours 08/09/21 08/09/21 08/09/21 13:15 12:37 12:37 WBC RBC Hgb Hct POC Hct MCV MCH MCHC RDW Plt Count MPV Immature Gran % (Auto) Neut % (Auto) Lymph % (Auto) [place] % (Auto) Eos % (Auto) Baso % (Auto) Lymph # (Auto) [place] # (Auto) Eos # (Auto) Baso # (Auto) Immature Gran # Absolute Neutrophils PT 28.1 H INR 2.5 H POC VBG pH POC VBG pCO2 at Temp POC VBG pO2 POC VBG HCO3 POC VBG Total CO2 POC Venous O2 Sat POC VBG Base Excess POC Sodium POC Potassium POC Chloride POC Total CO2 POC BUN POC Creatinine POC Glucose POC Venous Lactate POC WB Ioniz Calcium Total Bilirubin 0.5 Direct Bilirubin < 0.2 AST 19 ALT 15 Alkaline Phosphatase 65 NT-Pro-B Natriuret Pep 2355.0 H Total Protein 7.0 Albumin 4.0 Globulin 3.0 Procalcitonin POC Troponin I 0.01 L 08/09/21 08/09/21 08/09/21 12:37 12:36 12:09 WBC 8.9 RBC 3.62 L Hgb 12.0 L Hct 37.4 L POC Hct 37.0 L MCV 103.3 H MCH 33.1 MCHC 32.1 RDW 15.2 H Plt Count 108 L MPV 9.1 Immature Gran % (Auto) 1.0 H Neut % (Auto) 81.3 H Lymph % (Auto) 7.7 L [place] % (Auto) 6.4 Eos % (Auto) 2.8 Baso % (Auto) 0.8 Lymph # (Auto) 0.69 L [place] # (Auto) 0.57 Eos # (Auto) 0.25 Baso # (Auto) 0.07 Immature Gran # 0.09 H Absolute Neutrophils 7.36 PT INR POC VBG pH POC VBG pCO2 at Temp POC VBG pO2 POC VBG HCO3 POC VBG Total CO2 POC Venous O2 Sat POC VBG Base Excess POC Sodium 138 POC Potassium 5.0 POC Chloride 101 POC Total CO2 27.0 POC BUN 34 H POC Creatinine 1.2 POC Glucose 113 H POC Venous Lactate POC WB Ioniz Calcium 1.16 Total Bilirubin Direct Bilirubin AST ALT Alkaline Phosphatase NT-Pro-B Natriuret Pep Total Protein Albumin Globulin Procalcitonin Pending POC Troponin I 08/09/21 12:09 WBC RBC Hgb Hct POC Hct MCV MCH MCHC RDW Plt Count MPV Immature Gran % (Auto) Neut % (Auto) Lymph % (Auto) [place] % (Auto) Eos % (Auto) Baso % (Auto) Lymph # (Auto) [place] # (Auto) Eos # (Auto) Baso # (Auto) Immature Gran # Absolute Neutrophils PT INR POC VBG pH 7.38 POC VBG pCO2 at Temp 48.8 POC VBG pO2 68 H POC VBG HCO3 29.2 H POC VBG Total CO2 31.0 H POC Venous O2 Sat 93.0 H POC VBG Base Excess 4.0 H* POC Sodium POC Potassium POC Chloride POC Total CO2 POC BUN POC Creatinine POC Glucose POC Venous Lactate 0.7 POC WB Ioniz Calcium Total Bilirubin Direct Bilirubin AST ALT Alkaline Phosphatase NT-Pro-B Natriuret Pep Total Protein Albumin Globulin Procalcitonin POC Troponin I A/P Narrative A/P Narrative: A: *Acute hypoxic respiratory failure: 2/2 effusion/chf/atelectasis *Right Pleural effusion/Atelectasis: *Acute on chronic diastolic CHF w/pulm edema: -On lisinopril/Lasix at home *h/o afib/flutter: On diltiazem/warfarin *Mitral Regurg, mod-Severe; h/o s/p TAVR: *h/o CAD: *DM: Diet controlled *CKD II: *Anemia, chronic: *Thrombocytopenia,chronic: *Obesity: BMI 33 P: -IV lasix -monitor i/o, weights, uop -May need thoracentesis on the right, once INR lower -O2 supp, wean as able -cont dilt/acei, statin - -pt/ot -Home medication reconciliation -ppx: scd,warfarin held for possible thora DNR Time Spent With Patient Time: Total time spent is greater than 50% in coordination of care (as documented) at patient's floor/unit and/or counseling patient: Total time spent with greater than 50% in coordination of care (as documented) at patient's floor/unit and/or counseling patient:: Greater than 70 minutes
[2021-08-09] MEDS ORDERED: ACETAMINOPHEN 325 MG TABLET PO PRN (18:47)
[2021-08-09] MEDS ORDERED: ONDANSETRON 4 MG/2 ML VIAL IV PRN (18:47)
[2021-08-09] MEDS ORDERED: IPRATROPIUM/ALBUTEROL 3 ML AMPUL.NEB NEB PRN (18:47)
[2021-08-09] MEDS ORDERED: POTASSIUM CHLORIDE 20 MEQ TABLET PO PRN ×2 (18:47)
[2021-08-09] MEDS ORDERED: MAGNESIUM SULFATE 2 GM/50 ML BAG IV PRN (18:47)
[2021-08-09] MEDS ORDERED: POLYETHYLENE GLYCOL 3350 17 GM PACKET PO PRN (18:47)
[2021-08-09] MEDS ORDERED: METOPROLOL TARTRATE 5 MG/5 ML VIAL IV PRN (18:47)
[2021-08-09] MEDS ORDERED: SENNOSIDES 1 TABLET PO PRN (18:47)
[2021-08-09] MEDS ORDERED: POTASSIUM CHLORIDE 40 MEQ in DEXTROSE 5% IN WATER 500 ML IV PRN (18:47)
[2021-08-09] MEDS: DOCUSATE SODIUM 100 MG CAPSULE PO SCH (20:57)
[2021-08-09] MEDS: traZODone HCL 50 MG TABLET PO PRN (20:57)
[2021-08-09] MEDS: 0.9 % SODIUM CHLORIDE 10 ML SYRINGE IV SCH (20:57)
[2021-08-10] MEDS: 0.9 % SODIUM CHLORIDE 10 ML SYRINGE IV SCH ×3 (06:10→20:52)
[2021-08-10 06:34] LABS: Basophils # (Auto) 0.06 K/mcL (0.00-0.30); Basophils % (Auto) 0.8 % (0.0-2.0); Eosinophils # (Auto) 0.39 K/mcL (0.00-0.70); Eosinophils % (Auto) 4.9 % (0.0-7.0); Hematocrit 37.9 % (40.1-51.0); Hemoglobin 11.7 g/dL (13.7-17.5); Lymphocytes # (Auto) 0.86 K/mcL (1.50-4.80); Lymphocytes % (Auto) 10.9 % (15.5-49.0); Mean Cell Volume 106.5 fL (80.0-100.0); Mean Corpuscular HGB Conc 30.9 g/dL (31.0-36.0); Mean Platelet Volume 9.6 fL (7.4-10.4); Monocytes % (Auto) 8.9 % (1.0-12.0); Neutrophils % (Auto) 73.7 % (38.0-78.0); Platelet Count 99 K/mcL (140-440); RBC 3.56 M/mcL (4.63-6.08); Red Cell Distribution Width 15.1 % (11.5-14.5); WBC 7.9 K/mcL (4.5-11.0)
[2021-08-10 06:57] LABS: ALT/SGPT 13 U/L (<40); AST/SGOT 28 U/L (<40); Albumin 3.8 gm/dL (3.2-5.2); Albumin/Globulin Ratio 1.4 (1.0-2.3); Alkaline Phosphatase 53 U/L (39-117); Bilirubin,Direct < 0.2 mg/dL (0-0.3); Bilirubin,Total 0.6 mg/dL (0.1-1.0); Blood Urea Nitrogen 28 mg/dL (8-23); Calcium 8.9 mg/dL (8.6-10.4); Carbon Dioxide 28 mmol/L (22-30); Chloride 102 mmol/L (96-108); Globulin 2.7 gm/dL (2.2-3.7); Glomerular Filtration Rate 61; Glucose 87 mg/dL (70-105); Lactate Dehydrogenase 336 U/L (135-225); Phosphorous 4.4 mg/dL (2.5-4.5); Triglycerides 44 mg/dL (<150); Uric Acid 5.5 mg/dL (2.5-8.0)
--- NOTE | 2021-08-10 07:12 | Internal Med Progress Note ---
SUBJECTIVE Subjective Patient information: Note initiated : 08/10/21 at 7:07 am Service Date, if different from initiated Date: [] Patient: Shelby Ruff a 86 y/o M admitted on 08/09/21 for Needs oxygen. Chief Complaint: [] Interval history: History of present illness: Mr. Ruff is a 86 year old M Patient complaining of shortness of breath for 1 week especially dyspnea on exertion. He has a chronic cough but no change. He says his weight maintained the same. Does have peripheral edema and says that is about the same. Denies fever chills nausea vomiting sick contacts or traveling. In the ED he was 85% on room air. Does have history of A. fib and is on warfarin and diltiazem. INR was 2.5. In pulses within normal limits. Chest today done in ED which shows a right-sided effusion with atelectasis with some pulmonary congestion and some fluid in the fissure on the right. Patient given IV Lasix in the ED 60 mg, urine output so far 600 mL. 08/10 Patient has had good urine output. Still short of breath with exertion. [place] any cough above baseline. INR needs to be 2 or less for radiology to do thoracentesis. Is 2.4 today. Review of Systems: denies headache/fever/chills/nausea/vomiting/chest or abdominal pain/diarrhea. Otherwise see above. Constitutional Vitals: Vital Signs Temp Pulse Resp BP Pulse Ox 98.4 F 77 21 118/62 93 08/10/21 04:00 08/10/21 06:00 08/10/21 06:00 08/10/21 06:00 08/10/21 06:00 Period Temp Pulse Resp BP Sys/Chang Pulse Ox Last 24 Hr 96.8 F-98.4 F 48-106 12-23 91-143/58-128 85-99 Intake and Output 08/09/21 08/10/21 08/10/21 21:59 05:59 13:59 Intake Total 1200 Output Total 1300 450 Balance -1300 1200 -450 Weight 103.618 kg Intake & Output: Intake & Output 08/09/21 08/10/21 08/10/21 21:59 05:59 13:59 Intake Total 1200 Output Total 1300 450 Balance -1300 1200 -450 Weight 103.618 kg Intake: Oral 1200 Output: Void Amount 1300 450 Other: Urine Appearance Clear Clear Urine Color Pale Pale Urine Odor Normal Exam: General: Alert, Awake, No acute Distress, obese Eyes/N/T: EOMI, Head/Neck: neck supple, CV: Irreg irregular, no murmurs, Pulm: Severely diminished on the right, no wheezing Abd: soft, nontender, +BS x4 Ext: no clubbing/cyanosis, 2+ b/l LE Edema improving Neuro: Alert, no focal deficits, moves all extremities, Skin: warm/dry OBJ DATA Labs CBC & Chem 7: 08/10/21 05:46 08/10/21 05:46 Labs: Abnormal Lab Results 08/10/21 08/10/21 08/09/21 05:46 05:46 13:15 RBC 3.56 L Hgb 11.7 L Hct 37.9 L POC Hct MCV 106.5 H MCHC 30.9 L RDW 15.1 H Plt Count 99 L Immature Gran % (Auto) 0.8 H Neut % (Auto) Lymph % (Auto) 10.9 L Lymph # (Auto) 0.86 L Immature Gran # 0.06 H PT INR POC VBG pO2 POC VBG HCO3 POC VBG Total CO2 POC Venous O2 Sat POC VBG Base Excess POC BUN BUN 28 H POC Glucose Lactate Dehydrogenase 336 H NT-Pro-B Natriuret Pep POC Troponin I 0.01 L 08/09/21 08/09/21 08/09/21 12:37 12:37 12:37 RBC 3.62 L Hgb 12.0 L Hct 37.4 L POC Hct MCV 103.3 H MCHC RDW 15.2 H Plt Count 108 L Immature Gran % (Auto) 1.0 H Neut % (Auto) 81.3 H Lymph % (Auto) 7.7 L Lymph # (Auto) 0.69 L Immature Gran # 0.09 H PT 28.1 H INR 2.5 H POC VBG pO2 POC VBG HCO3 POC VBG Total CO2 POC Venous O2 Sat POC VBG Base Excess POC BUN BUN POC Glucose Lactate Dehydrogenase NT-Pro-B Natriuret Pep 2355.0 H POC Troponin I 08/09/21 08/09/21 12:09 12:09 RBC Hgb Hct POC Hct 37.0 L MCV MCHC RDW Plt Count Immature Gran % (Auto) Neut % (Auto) Lymph % (Auto) Lymph # (Auto) Immature Gran # PT INR POC VBG pO2 68 H POC VBG HCO3 29.2 H POC VBG Total CO2 31.0 H POC Venous O2 Sat 93.0 H POC VBG Base Excess 4.0 H* POC BUN 34 H BUN POC Glucose 113 H Lactate Dehydrogenase NT-Pro-B Natriuret Pep POC Troponin I Meds: Medications Acetaminophen (Acetaminophen 325 Mg Tablet) 650 mg PO Q6HP PRN; Protocol PRN Reason: Per Pain Protocol/Fever > 101 Albuterol/Ipratropium (Ipratropium/Albuterol 3 Ml Ampul.Neb) 3 ml NEB Q4HP PRN PRN Reason: Shortness Of Breath Allopurinol (Allopurinol 100 Mg Tablet) 200 mg PO QDAY [facility] Diltiazem HCl (Diltiazem 240 Mg Cap.Xl.24h) 240 mg PO QDAY [facility] Docusate Sodium (Docusate Sodium 100 Mg Capsule) 100 mg PO BID [facility] Last Admin: 08/09/21 20:57 Dose: 100 mg Documented by: Furosemide (Furosemide 40 Mg/4 Ml Vial) 40 mg IV BIDD [facility] Potassium Chloride 40 meq/ (Dextrose) 520 mls @ 130 mls/hr IV UD PRN PRN Reason: Potassium < 3 Magnesium Sulfate (Magnesium Sulfate) 2 gm in 50 mls @ 50 mls/hr IV UD PRN PRN Reason: Magnesium </= 1.6 Lisinopril (Lisinopril 5 Mg Tablet) 5 mg PO QDAY [facility] Metoprolol Tartrate (Metoprolol Tartrate 5 Mg/5 Ml Vial) 5 mg IV Q2HP PRN PRN Reason: Tachyarrhythmias HR>110 Ondansetron HCl (Ondansetron 4 Mg/2 Ml Vial) 4 mg IV Q4HP PRN PRN Reason: Nausea And Vomiting Polyethylene Glycol (Polyethylene Glycol 3350 17 Gm Packet) 17 gm PO DAILYP PRN PRN Reason: Constipation Potassium Chloride (Potassium Chloride 20 Meq Tablet) 40 meq PO UD PRN PRN Reason: Potssium is 3-3.5 Potassium Chloride (Potassium Chloride 20 Meq Tablet) 40 meq PO UD PRN PRN Reason: Potassium < 3 Potassium Chloride (Potassium Chloride 10 Meq Tablet) [facility] Pravastatin Sodium (Pravastatin 40 Mg Tablet) 20 mg PO Q2D [facility] Senna (Sennosides 1 Tablet) 2 tab PO DAILYP PRN PRN Reason: Constipation Sodium Chloride (0.9 % Sodium Chloride 10 Ml Syringe) 10 ml IV Q8 [facility] Last Admin: 08/10/21 06:10 Dose: 10 ml Documented by: Trazodone HCl (Trazodone Hcl 50 Mg Tablet) 150 mg PO HSP PRN PRN Reason: insomnia Last Admin: 08/09/21 20:57 Dose: 150 mg Documented by: A/P Narrative A/P Narrative: A: *Acute hypoxic respiratory failure: 2/2 effusion/chf/atelectasis -on 2-4L NC *Right Pleural effusion/Atelectasis: *Acute on chronic diastolic CHF w/pulm edema: -On lisinopril/Lasix at home -good uop *h/o afib/flutter: On diltiazem/warfarin *Mitral Regurg, mod-Severe; h/o s/p TAVR: *h/o CAD: *DM: Diet controlled *CKD II: *Anemia, chronic: *Thrombocytopenia,chronic: *Obesity: BMI 33 P: -IV lasix -monitor i/o, weights, uop -will order FFP for thoracentesis on the right -O2 supp, wean as able -cont dilt/acei, statin -pt/ot -ppx: scd,warfarin held for thora DNR Time Spent With Patient Time: Total time spent is greater than 50% in coordination of care (as documented) at patient's floor/unit and/or counseling patient: Total time spent with greater than 50% in coordination of care (as documented) at patient's floor/unit and/or counseling patient:: 35 - 50 minutes QUALITY VTE Deep Vein Thrombosis/Pulmonary Embolism Present on Admission: No
[2021-08-10 08:16] LABS: INR 2.4 (0.9-1.1); Prothrombin Time 26.6 sec (11.9-14.5)
[2021-08-10] MEDS ORDERED: LISINOPRIL 5 MG TABLET PO SCH (09:00)
[2021-08-10] MEDS ORDERED: 0.9 % SODIUM CHLORIDE 250 ML IV SCH (09:00)
[2021-08-10] MEDS: DILTIAZEM 240 MG CAP.XL.24H PO SCH (09:29)
[2021-08-10] MEDS: ALLOPURINOL 100 MG TABLET PO SCH (09:29)
[2021-08-10] MEDS: FUROSEMIDE 40 MG/4 ML VIAL IV SCH ×2 (09:29→16:04)
[2021-08-10] MEDS: POTASSIUM CHLORIDE 10 MEQ TABLET PO SCH (09:29)
[2021-08-10] MEDS: DOCUSATE SODIUM 100 MG CAPSULE PO SCH ×2 (09:29→20:52)
--- NOTE | 2021-08-10 10:47 | Discharge Summary ---
Discharge Provider Provider IMPORTANT FOLLOW-UP INFORMATION FOR PCP: Monitor blood pressure twice daily and bring log to PCP and aircraft structure mechanic. Lisinopril/Diltiazem decreased for low BP, f/u with PCP/aircraft structure mechanic Patient information: Note initiated : 08/10/21 at 10:45 am Service Date, if different from initiated Date: [] Patient: Shelby Ruff a 86 y/o M admitted on 08/09/21 for Needs oxygen. Chief Complaint: [] Date of admission: 08/09/21 18:40 Discharge date: 08/11/21 Primary care physician: Jaziel Joseph MD Consults: 08/09/21 16:57 Consult to Physician [CONS] Stat Comment: Consulting Provider: Harlan Powers Reason For Exam: Physician to Consult COURSE Hospital Course Hospital course: History of present illness: Mr. Ruff is a 86 year old M Patient complaining of shortness of breath for 1 week especially dyspnea on exertion. He has a chronic cough but no change. He says his weight maintained the same. Does have peripheral edema and says that is about the same. Denies fever chills nausea vomiting sick contacts or traveling. In the ED he was 85% on room air. Does have history of A. fib and is on warfarin and diltiazem. INR was 2.5. In pulses within normal limits. Chest today done in ED which shows a right-sided effusion with atelectasis with some pulmonary congestion and some fluid in the fissure on the right. Patient given IV Lasix in the ED 60 mg, urine output so far 600 mL. / Patient has had good urine output. Still short of breath with exertion. [place] any cough above baseline. INR needs to be 2 or less for radiology to do thoracentesis. Is 2.4 today. 08/11 Blood pressure soft since starting diltiazem and lisinopril. Hold lisinopril and decrease diltiazem Patient doing well. On room air at rest but does need oxygen with activity. Right lung sounds much improved after thoracentesis. Patient will need home oxygen for underlying COPD and CHF. Patient has been on home oxygen in the past. A: *Acute hypoxic respiratory failure: 2/2 effusion/chf/atelectasis *Right Pleural effusion/Atelectasis: *Acute on chronic diastolic CHF w/pulm edema: -On lisinopril/Lasix at home *h/o afib/flutter: On diltiazem/warfarin *Mitral Regurg, mod-Severe; h/o s/p TAVR: *h/o CAD: *DM: Diet controlled *CKD II: *Anemia, chronic: *Thrombocytopenia,chronic: *Obesity: BMI 33 *Likely COPD based on imaging and history P: -transition back to home lasix -f/u with cardiology outpt Discharge diagnosis: Acute hypoxic respite failure with pleural effusion and CHF COPD Secondary discharge diagnosis: Diastolic heart failure A. fib flutter mitral regurg CAD diabetes chronic kidney disease anemia pancytopenia obesity Time Spent with Patient Time attestation: Total time spent providing and/or coordinating discharge services: Time spent: Greater than 30 minutes EXAM Constitutional Vitals: Temp Pulse Resp BP Pulse Ox 97.2 F 73 18 116/60 94 08/10/21 08:00 08/10/21 08:00 08/10/21 08:00 08/10/21 08:00 08/10/21 08:00 Discharge Data Data Completed and Pending Labs on day of discharge: Labs from last 24 hours 08/10/21 08/10/21 08/10/21 07:31 05:46 05:46 WBC 7.9 RBC 3.56 L Hgb 11.7 L Hct 37.9 L POC Hct MCV 106.5 H MCH 32.9 MCHC 30.9 L RDW 15.1 H Plt Count 99 L MPV 9.6 Immature Gran % (Auto) 0.8 H Neut % (Auto) 73.7 Lymph % (Auto) 10.9 L Cecil % (Auto) 8.9 Eos % (Auto) 4.9 Baso % (Auto) 0.8 Lymph # (Auto) 0.86 L Cecil # (Auto) 0.70 Eos # (Auto) 0.39 Baso # (Auto) 0.06 Immature Gran # 0.06 H Absolute Neutrophils 5.87 PT 26.6 H INR 2.4 H POC VBG pH POC VBG pCO2 at Temp POC VBG pO2 POC VBG HCO3 POC VBG Total CO2 POC Venous O2 Sat POC VBG Base Excess POC Sodium Sodium 139 POC Potassium Potassium 5.1 POC Chloride Chloride 102 Carbon Dioxide 28 POC Total CO2 Anion Gap 9.0 POC BUN BUN 28 H Creatinine 1.1 POC Creatinine GFR Calculation 61 Glucose 87 POC Glucose POC Venous Lactate Uric Acid 5.5 Calcium 8.9 POC WB Ioniz Calcium Phosphorus 4.4 Magnesium 2.5 Total Bilirubin 0.6 Direct Bilirubin < 0.2 GGT 16 AST 28 ALT 13 Alkaline Phosphatase 53 Lactate Dehydrogenase 336 H NT-Pro-B Natriuret Pep Total Protein 6.5 Albumin 3.8 Globulin 2.7 Albumin/Globulin Ratio 1.4 Triglycerides 44 Procalcitonin TSH POC Troponin I 08/09/21 08/09/21 08/09/21 13:15 12:37 12:37 WBC RBC Hgb Hct POC Hct MCV MCH MCHC RDW Plt Count MPV Immature Gran % (Auto) Neut % (Auto) Lymph % (Auto) Cecil % (Auto) Eos % (Auto) Baso % (Auto) Lymph # (Auto) Cecil # (Auto) Eos # (Auto) Baso # (Auto) Immature Gran # Absolute Neutrophils PT 28.1 H INR 2.5 H POC VBG pH POC VBG pCO2 at Temp POC VBG pO2 POC VBG HCO3 POC VBG Total CO2 POC Venous O2 Sat POC VBG Base Excess POC Sodium Sodium POC Potassium Potassium POC Chloride Chloride Carbon Dioxide POC Total CO2 Anion Gap POC BUN BUN Creatinine POC Creatinine GFR Calculation Glucose POC Glucose POC Venous Lactate Uric Acid Calcium POC WB Ioniz Calcium Phosphorus Magnesium Total Bilirubin 0.5 Direct Bilirubin < 0.2 GGT AST 19 ALT 15 Alkaline Phosphatase 65 Lactate Dehydrogenase NT-Pro-B Natriuret Pep 2355.0 H Total Protein 7.0 Albumin 4.0 Globulin 3.0 Albumin/Globulin Ratio Triglycerides Procalcitonin TSH POC Troponin I 0.01 L 08/09/21 08/09/21 08/09/21 12:37 12:36 12:36 WBC 8.9 RBC 3.62 L Hgb 12.0 L Hct 37.4 L POC Hct MCV 103.3 H MCH 33.1 MCHC 32.1 RDW 15.2 H Plt Count 108 L MPV 9.1 Immature Gran % (Auto) 1.0 H Neut % (Auto) 81.3 H Lymph % (Auto) 7.7 L Cecil % (Auto) 6.4 Eos % (Auto) 2.8 Baso % (Auto) 0.8 Lymph # (Auto) 0.69 L Cecil # (Auto) 0.57 Eos # (Auto) 0.25 Baso # (Auto) 0.07 Immature Gran # 0.09 H Absolute Neutrophils 7.36 PT INR POC VBG pH POC VBG pCO2 at Temp POC VBG pO2 POC VBG HCO3 POC VBG Total CO2 POC Venous O2 Sat POC VBG Base Excess POC Sodium Sodium POC Potassium Potassium POC Chloride Chloride Carbon Dioxide POC Total CO2 Anion Gap POC BUN BUN Creatinine POC Creatinine GFR Calculation Glucose POC Glucose POC Venous Lactate Uric Acid Calcium POC WB Ioniz Calcium Phosphorus Magnesium Total Bilirubin Direct Bilirubin GGT AST ALT Alkaline Phosphatase Lactate Dehydrogenase NT-Pro-B Natriuret Pep Total Protein Albumin Globulin Albumin/Globulin Ratio Triglycerides Procalcitonin 0.06 TSH 4.42 POC Troponin I 08/09/21 08/09/21 12:09 12:09 WBC RBC Hgb Hct POC Hct 37.0 L MCV MCH MCHC RDW Plt Count MPV Immature Gran % (Auto) Neut % (Auto) Lymph % (Auto) Cecil % (Auto) Eos % (Auto) Baso % (Auto) Lymph # (Auto) Cecil # (Auto) Eos # (Auto) Baso # (Auto) Immature Gran # Absolute Neutrophils PT INR POC VBG pH 7.38 POC VBG pCO2 at Temp 48.8 POC VBG pO2 68 H POC VBG HCO3 29.2 H POC VBG Total CO2 31.0 H POC Venous O2 Sat 93.0 H POC VBG Base Excess 4.0 H* POC Sodium 138 Sodium POC Potassium 5.0 Potassium POC Chloride 101 Chloride Carbon Dioxide POC Total CO2 27.0 Anion Gap POC BUN 34 H BUN Creatinine POC Creatinine 1.2 GFR Calculation Glucose POC Glucose 113 H POC Venous Lactate 0.7 Uric Acid Calcium POC WB Ioniz Calcium 1.16 Phosphorus Magnesium Total Bilirubin Direct Bilirubin GGT AST ALT Alkaline Phosphatase Lactate Dehydrogenase NT-Pro-B Natriuret Pep Total Protein Albumin Globulin Albumin/Globulin Ratio Triglycerides Procalcitonin TSH POC Troponin I Discharge Plan Patient/Caregiver Discharge Instructions Activity: increase activity as tolerated Diet: Consistent Carbohydrate Instructions: Heart Failure (GEN), Hypoxia (GEN) Activity Restrictions/Additional Instructions: Follow-up with your aircraft structure mechanic in [address] Price (Cardiology) is reviewing your hospital stay, they will contact you to schedule an appointment. Increase activity as tolerated, continue with a consistent carbohydrate diet. Will need home oxygen for activity. Patient used to be on home oxygen. Monitor blood pressure twice daily and bring log to PCP and aircraft structure mechanic. Lisinopril decreased for low BP Prescriptions: Continued trazodone 50 mg tablet 150 mg PO QHS PRN (Reason: insomnia) Qty: 270 4RF potassium chloride 10 mEq tablet extended release 20 meq PO QDAY Qty: 180 0RF allopurinol 100 mg tablet 200 mg PO QDAY Qty: 180 3RF Rx Instructions: Increased at last visit to 200 mg qd pravastatin 40 mg tablet 20 mg PO Q2D 0RF warfarin 5 mg tablet See Rx Instructions mg PO .COMPLEX 0RF Protocol: Dose Management Condition: Sunday Dose/Route: 7.5 mg Instruction: 1.5 x 5 mg tablets Condition: Sunday Dose/Route: 7.5 mg Instruction: 1.5 x 5 mg tablets Condition: Sunday Dose/Route: 5 mg Instruction: 1 x 5 mg tablet Condition: Sunday Dose/Route: 7.5 mg Instruction: 1.5 x 5 mg tablets Condition: Dose/Route: 5 mg Instruction: 1 x 5 mg tablet Condition: Sunday Dose/Route: 7.5 mg Instruction: 1.5 x 5 mg tablets Condition: Sunday Dose/Route: 5 mg Instruction: 1 x 5 mg tablet Protocol Text: Adjustment Start Date: Sunday07/29/21 INR Value: 2.4 INR Date: 07/29/21 Recheck Date: 08/28/21 Rx Instructions: 7.5 mg Sun,Sun,Sun,Sun; 5 mg the other 3 days furosemide 40 mg Tablet 40 mg PO QAM 0RF Changed diltiazem HCl [Cartia XT] 120 mg capsule,extended release 24hr 120 mg PO QDAY Qty: 180 0RF lisinopril 5 mg tablet 2.5 mg PO QDAY Qty: 90 4RF Follow Up Plan Follow up with: Manolo Price MD [Physician] - (Dr. Price office will contact you to re- schedule an appointment after reviewing your hospital stay.) Jaziel Joseph MD [Primary Care Provider] - 08/18/21 11:30 am (Please check in at 11:15 am) Patient Disposition: Home, Self-Care Prognosis: Fair Overall status at discharge: patient is progressing back to baseline Discharge Orders: Discharge Order (Routine); Ordered 08/11/21 Ordered By: Harlan Powers [facility] VTE Deep Vein Thrombosis/Pulmonary Embolism Present on Admission: No
--- NOTE | 2021-08-10 17:38 | XRay Report ---
INDICATION: hypoxia, severely diminished right side TECHNIQUE: Ultrasound-guided right thoracentesis. Informed consent was obtained. Discussed the procedure as well as potential risks and complications including risk of pneumothorax. Right pleural fluid was localized with ultrasound. Routine ChloraPrep skin cleansing. 1% lidocaine injected subcutaneously and deep. A 6 Hungarian safety centesis kit was utilized. 1.5 L clear yellow fluid removed. Post procedure chest x-ray was obtained COMPARISON: Previous, preoperative chest x-ray dated 08/09/2021 FINDINGS: Postprocedure chest x-ray demonstrates significant decrease in right pleural effusion. There is no pneumothorax. There is persisting cardiomegaly with pulmonary congestion and possible mild interstitial edema. IMPRESSION: 1. Ultrasound-guided right thoracentesis 2. 1.5 L clear yellow fluid removed 3. No postprocedure pneumothorax. Interpreted and Authenticated by: Manuel Ochoa 08/10/21
[2021-08-10 18:46] LABS: LDH,Pleural Fluid 112 U/L (<122)
[2021-08-10 20:17] LABS: Appearance,Pleural Fluid Clear; Color,Pleural Fluid Yellow; Eosinophils,Pleural Fluid 1 %; Lymphocytes,Pleural Fluid 14 %; Mesothelial,Pleural Fluid 6 %; Monocytes,Pleural Fluid 15 %; Neutrophils,Pleural Fluid 64 %; Nucleated Cells,Pleural Fld 1369 /cumm; RBC,Pleural Fluid <50,000 /cumm
[2021-08-10] MEDS: traZODone HCL 50 MG TABLET PO PRN (20:52)
[2021-08-10] MEDS ORDERED: ALBUMIN HUMAN 12.5 GM/50 ML BAG IV ONE (22:15)
[2021-08-10] MEDS ORDERED: ALBUMIN HUMAN 50 ML IV ONE (22:29)
[2021-08-11] MEDS ORDERED: 0.9 % SODIUM CHLORIDE 250 ML IV PRN (02:03)
[2021-08-11] MEDS: 0.9 % SODIUM CHLORIDE 10 ML SYRINGE IV SCH (05:05)
[2021-08-11 06:52] LABS: Basophils # (Auto) 0.03 K/mcL (0.00-0.30); Basophils % (Auto) 0.4 % (0.0-2.0); Eosinophils # (Auto) 0.39 K/mcL (0.00-0.70); Eosinophils % (Auto) 4.6 % (0.0-7.0); Hematocrit 34.5 % (40.1-51.0); Hemoglobin 10.9 g/dL (13.7-17.5); Lymphocytes # (Auto) 0.91 K/mcL (1.50-4.80); Lymphocytes % (Auto) 10.6 % (15.5-49.0); Mean Cell Volume 105.2 fL (80.0-100.0); Mean Corpuscular HGB Conc 31.6 g/dL (31.0-36.0); Mean Platelet Volume 9.2 fL (7.4-10.4); Monocytes # (Auto) 0.63 K/mcL (0.10-0.90); Monocytes % (Auto) 7.4 % (1.0-12.0); Neutrophils % (Auto) 76.3 % (38.0-78.0); Platelet Count 97 K/mcL (140-440); RBC 3.28 M/mcL (4.63-6.08); Red Cell Distribution Width 15.1 % (11.5-14.5); WBC 8.6 K/mcL (4.5-11.0)
[2021-08-11 06:54] LABS: Blood Urea Nitrogen 33 mg/dL (8-23); Calcium 8.7 mg/dL (8.6-10.4); Carbon Dioxide 32 mmol/L (22-30); Chloride 99 mmol/L (96-108); Glomerular Filtration Rate 61; Glucose 83 mg/dL (70-105)
[2021-08-11] MEDS: POTASSIUM CHLORIDE 10 MEQ TABLET PO SCH (08:35)
[2021-08-11] MEDS: DOCUSATE SODIUM 100 MG CAPSULE PO SCH (08:36)
[2021-08-11] MEDS: ALLOPURINOL 100 MG TABLET PO SCH (08:36)
[2021-08-11] MEDS ORDERED: FUROSEMIDE 40 MG TABLET PO SCH (09:00)
[2021-08-11] MEDS ORDERED: DILTIAZEM 120 MG CAP.XL.24H PO SCH (09:00)
[2021-08-11] MEDS ORDERED: SIMVASTATIN 10 MG TABLET PO SCH (09:00)
[2021-08-11] MEDS: DILTIAZEM 240 MG CAP.XL.24H PO SCH (09:54)
[2021-08-11] MEDS ORDERED: WARFARIN 5 MG TABLET PO ONE (14:00)
--- NOTE | 2021-08-15 10:46 | EKG ---
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 Measurements Intervals [place] Rate: 65 P: MS: QRS: 70 QRSD: 118 T: 96 QT: 425 QTc: 442 Interpretive Statements Atrial fibrillation Nonspecific intraventricular conduction delay Borderline repolarization abnormality Electronically Signed On 08-15-2021 10:46:25 PDT by Manuel Rios M.D. /store/M0/[id number]
== END 2021-08-11 13:40 | disposition home or self-care (01) | DRG 189 ==
LOC: ED 11:39 → ICU 18:40
PROVIDERS: ADMIT Internal Medicine; ATTEND Internal Medicine

== ENCOUNTER 2021-11-15 11:10 | Inpatient (IN) ==
--- NOTE | 2021-11-15 11:53 | Emergency Department Note ---
SOB HPI General Chief Complaint: Shortness of Breath/Dyspnea Stated Complaint: Can't breathe Time Seen by Provider: 11/15/21 11:33 Source: patient Mode of arrival: ambulatory Limitations: no limitations History of Present Illness HPI Narrative: Narrative: Patient presents ED with complaints of worsening shortness of breath over the last week. He states that his shortness of breath is worse with activity. He denies fever, chills, nausea, vomiting, cough, sputum production, cardiac chest pain, heart palpitations, known sick contacts. Patient states that he takes Lasix for his CHF 80 mg daily. He states little over a month ago he was here in the hospital to have some fluid drawn off his lungs. Patient denies any other alleviating or aggravating factors. Patient reports she is on 2 L of oxygen via nasal cannula at night. Related Data Home Medications Medication Instructions Recorded Confirmed pravastatin 40 mg tablet 20 mg PO Q2D 03/23/21 11/07/21 furosemide 40 mg tablet 40 mg PO QAM 08/09/21 11/07/21 Previous Rx's Medication Instructions Recorded trazodone 50 mg tablet 150 mg PO QHS PRN insomnia #270 08/25/19 tabs potassium chloride 10 mEq 20 meq PO QDAY #180 tabs 06/09/21 tablet,extended release warfarin 5 mg tablet See Rx Instructions PO .COMPLEX 09/02/21 #108 tabs lisinopril 2.5 mg tablet 2.5 mg PO QDAY #90 tabs 09/20/21 diltiazem HCl 120 mg 120 mg PO QAM #90 caps 09/21/21 capsule,extended release 24 hr allopurinol 100 mg tablet 200 mg PO QDAY #180 tabs 11/07/21 Allergies Allergy/AdvReac Type Severity Reaction Status Date / Time No Known Drug Intolerances AdvReac Unknown Unknown Verified 11/07/21 09:44 Review of Systems ROS ROS Narrative: Narrative: All systems ED: reviewed and negative except as stated. [facility] N[facility] Patient History Narrative: Narrative: Medical/Surgical/Family History All Active Problems (Updated 11/15/21 @ 15:09 by Stewart Leiva DO) Anticoagulant long-term use (Chronic) Anticoagulant long-term use (Acute) Atrial fibrillation (Chronic) Atrial flutter (Chronic) Closed fracture (Acute) Colon polyps (Acute) Degenerative arthritis (Chronic) DM type 2 (diabetes mellitus, type 2) (Chronic) Edema (Chronic) Gallstones without obstruction of gallbladder (Chronic) Gout (Chronic) Hyperlipidemia (Chronic) Hypertension (Chronic) Ischemic heart disease, chronic (Chronic) Myocardial infarction, old (Acute) Peripheral neuropathy (Acute) History of tobacco use (Chronic) Weight loss (Acute) History of angioplasty (Acute) History of cardiac catheterization (Acute) History of colonoscopy (Acute) History of right knee surgery (Acute) History of surgery (Acute) Encounter for Health Maintenance Examination in Adult (Chronic) Colon polyp (Chronic) Aortic stenosis (Chronic) Polyarthralgia (Acute) CRP elevated (Acute) LOUISE positive (Acute) Rheumatoid factor negative (Acute) Hyperuricemia (Chronic) Inflammatory arthropathy (Acute) correction systemic 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 (Chronic) Long-term use of high-risk medication (Chronic) Pneumonia (Acute) Congestive heart failure (Acute) Wound of left upper extremity (Acute) Mitral regurgitation (Acute) Coronary artery disease (Acute) Coronary atherosclerosis (Acute) Severe mitral regurgitation (Acute) Obesity (Acute) Medicare annual wellness visit, initial (Acute) CHF (congestive heart failure) (Acute) Chest wall muscle strain (Acute) Annual physical exam (Acute) Acute and chronic respiratory failure with hypoxia (Acute) Acute exacerbation of CHF (congestive heart failure) (Acute) Medical History LOUISE positive Anticoagulant long-term use 03/21/2013. Anticoagulant use; chronic Anticoagulant long-term use Anticoagulation syndrome. Chronic. Extensive cardiology review with echo and cardiolite in April of 2010. Last review with Dr. Olsen in April of 2011. Aortic stenosis update echo 09/2019 Atrial fibrillation 04/11/2013 Atrial flutter Cardioverted in 2004 with recurrence of atrial fibrillation/flutter in Mar, relegated to rate control and chronic anticoagulation; extensive cardiology review with echo and cardiolite in April of 2010, last review with Dr. Olsen in April of 2011. CHF (congestive heart failure) Closed fracture Cervical vetebral fracture; closed. Previous traumatic C2 fracture in November of 2008, followed to stabilizaton Colon polyps 2008 hyperplastic polyp. 05/16/12 colonoscopy -- Dr. Howard -- tubular adenomas. 5-year sequence. Coronary artery disease Coronary atherosclerosis CRP elevated Degenerative arthritis Most symptomatic in left knee 04/2012 DM type 2 (diabetes mellitus, type 2) Adult onset non insulin dependent diabetes. Metformin; mild peripheral neuropathy, taper off med in lieu of age and risk for complications with recent A1C of 5.4. Edema Encounter for Health Maintenance Examination in Adult Gallstones without obstruction of gallbladder Asymptomatic gallstones on ultrasound in 2006 Gout History of tobacco use Quit in 1985. Last chest x-ray in Mar, does not require routine screening; minimal oral tobacco use - recounseled in this regard. 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 Long-term use of high-risk medication Medicare annual wellness visit, initial Mitral regurgitation Myocardial infarction, old Distant history of Obesity Peripheral neuropathy Mild Polyarthralgia Rheumatoid factor negative Severe mitral regurgitation Weight loss 53 pound purposeful weight loss as of 04/08/12 Wound of left upper extremity Surgical History Heart valve replaced 06/09/20 [place] History of angioplasty 1985 History of cardiac catheterization Evidence on a distant catheterization of a 90% stenosis of a small diagonal branch of the left anterior descending History of cardioversion (~09/2004) History of colonoscopy 05/16/12. 2007 hyperplastic polyp. 05/16/12 Colonoscopy -- Dr. Howard -- bular adenomas. 5-year sequence History of right knee surgery 11/2007 History of surgery 1985; stent placement Family History Sister Malignant neoplasm of breast 2 sisters had breast cancer Social History Smoking Status: Former smoker Alcohol Intake Frequency: holiday/special occasion only Substance Use: does not use Exam Narrative Narrative: Narrative: General Limitations: no limitations General appearance: Present alert Chest Chest: Present normal inspection; Absent tenderness Respiratory Respiratory: Present respiratory distress and rales/crackles Cardiovascular Cardiovascular: Present regular rate and normal rhythm Adbominal Abdominal: Present soft; Absent tenderness Extremities Extremities: Present normal capillary refill; Absent pedal edema Neurological Neurological: Present alert and oriented X3 Psychiatric Psychiatric: Present normal affect and normal mood Skin Skin: Present warm (WNL) and intact Course Course Course Narrative: Patient was evaluated for shortness of breath. When patient arrived he was on 4 L via nasal cannula. Chest x-ray obtained with image reviewed myself which showed pulmonary congestive consistent with CHF exacerbation. Labs relatively unremarkable. Patient was given 60 mg of IV Lasix. This showed good results as patient had a lot of urine output. We were able to wean him from 4 L of oxygen via nasal cannula down to 1 L of oxygen via nasal cannula. We tried him on room air but he desatted down to 82%. After further discussion it was discovered that patient is supposed to be on 1.5 to 2 L of oxygen via nasal cannula at all times. He weaned himself to just nighttime use after he had fluid drawn off of his lung. But at baseline patient is post to be on 1.5 L. We ambulated patient in the hallways on 1.5 L via nasal cannula but he still desatted down to 86%. Believe patient needs further IV diuresis. Case discussed with hospitalist Who has graciously excepted patient. Plan of care was discussed with patient he expressed verbal understanding and agreement Reevaluation(s) Reevaluation #1: Patient remains hemodynamic stable. No new complaints at this time. Time: 12:35 Consultations Consultation #1: Case discussed with hospitalist who has agreed to admit the patient Time: 16:25 Vital Signs Vital signs: Vital Signs Temperature 97.7 F 11/15/21 11:11 Pulse Rate 74 11/15/21 11:11 Respiratory Rate 19 11/15/21 11:11 Blood Pressure 116/73 11/15/21 11:11 Pulse Oximetry (%) 76 L 11/15/21 11:11 Oxygen Delivery Method 11/15/21 11:11 Temperature 97.7 F 11/15/21 11:11 Pulse Rate 62 11/15/21 15:48 Respiratory Rate 16 11/15/21 15:30 Blood Pressure 124/89 11/15/21 15:45 Pulse Oximetry (%) 97 11/15/21 15:48 Oxygen Delivery Method 11/15/21 15:48 Oxygen Flow Rate (L/min) 2 11/15/21 15:48 MDM MDM Narrative Medical decision making narrative: Narrative: Differential Diagnosis Differential Diagnosis: CHF exacerbation Medical Records Medical records reviewed: Yes I reviewed the patient's medical records. Lab Data Lab results reviewed: Yes I reviewed the patient's lab results. Result diagrams: 11/15/21 11:50 Labs: Lab Results 11/15/21 11/15/21 11/15/21 Range/Units 11:50 11:50 11:58 WBC 8.2 (4.5-11.0) K/mcL RBC 3.16 L (4.63-6.08) M/mcL Hgb 10.7 L (13.7-17.5) g/dL Hct 32.2 L (40.1-51.0) % POC Hct 32.0 L (41-55) MCV 101.9 H (80.0-100.0) fL MCH 33.9 (26.0-34.0) pg MCHC 33.2 (31.0-36.0) g/dL RDW 15.1 H (11.5-14.5) % Plt Count 135 L (140-440) K/mcL MPV 9.6 (8.8-12.5) fL Immature Gran % (Auto) 2.6 H (0.0-0.5) % Neut % (Auto) 76.6 (38.0-78.0) % Lymph % (Auto) 7.2 L (15.5-49.0) % [place] % (Auto) 8.8 (1.0-12.0) % Eos % (Auto) 4.2 (0.0-7.0) % Baso % (Auto) 0.6 (0.0-2.0) % Lymph # (Auto) 0.59 L (1.50-4.80) K/mcL Sutton # (Auto) 0.72 (0.10-0.90) K/mcL Eos # (Auto) 0.34 (0.00-0.70) K/mcL Baso # (Auto) 0.05 (0.00-0.30) K/mcL Immature Gran # 0.21 H (0.00-0.05) K/mcl Absolute Neutrophils 6.27 (1.80-8.00) K/mcL POC Sodium 137 (133-145) POC Potassium 4.5 (3.3-5.1) POC Chloride 99 (96-108) POC Total CO2 29.0 (22-30) POC BUN 32 H (6-20) POC Creatinine 1.1 (0.6-1.2) POC Glucose 124 H (70-105) POC WB Ioniz Calcium 1.20 (1.16-1.32) NT-Pro-B Natriuret Pep 2481.0 H (<450.0) pg/mL ED POC Tests ED POC Tests: JOSE LUIS - Influenza A Negative JOSE LUIS - Influenza B Negative JOSE LUIS - SARS Antigen Negative Radiology Data Radiology results reviewed: Yes I reviewed the patient's radiology results. Radiology results narrative: Chest x-ray obtained with image reviewed myself, I agree with radiologist interpretation Core Measures AMI Core Measures Followed: Yes Discharge Plan Patient/Caregiver Discharge Instructions Pt seen by INTERDISCIPLINARY PROFESSOR/PA only: No Clinical Impression: Acute and chronic respiratory failure with hypoxia Acute exacerbation of CHF (congestive heart failure) Qualifiers: Heart failure type: unspecified Qualified Code(s): I50.9 - Heart failure, unspecified Patient Disposition: Xfer As Outpt/Obs ([facility]) Condition: Fair Follow up with: Jaziel Joseph MD [Primary Care Provider] - Prescriptions: No Action trazodone 50 mg tablet 150 mg PO QHS PRN (Reason: insomnia) Qty: 270 4RF potassium chloride 10 mEq tablet extended release 20 meq PO QDAY Qty: 180 0RF warfarin 5 mg tablet See Rx Instructions PO .COMPLEX Qty: 108 1RF Protocol: Dose Management Condition: Sunday Dose/Route: 7.5 mg Instruction: 1.5 x 5 mg tablets Condition: Sunday Dose/Route: 7.5 mg Instruction: 1.5 x 5 mg tablets Condition: Sunday Dose/Route: 5 mg Instruction: 1 x 5 mg tablet Condition: Sunday Dose/Route: 7.5 mg Instruction: 1.5 x 5 mg tablets Condition: Dose/Route: 5 mg Instruction: 1 x 5 mg tablet Condition: Sunday Dose/Route: 7.5 mg Instruction: 1.5 x 5 mg tablets Condition: Sunday Dose/Route: 5 mg Instruction: 1 x 5 mg tablet Protocol Text: Adjustment Start Date: Sunday10/24/21 INR Value: 2.3 INR Date: 10/24/21 Recheck Date: 11/21/21 Rx Instructions: 7.5 mg Sun,Sun,Wed,Sun; 5 mg the other 3 days lisinopril 2.5 mg tablet 2.5 mg PO QDAY Qty: 90 1RF diltiazem HCl 120 mg capsule,extended release 24hr 120 mg PO QAM Qty: 90 1RF pravastatin 40 mg tablet 20 mg PO Q2D allopurinol 100 mg tablet 200 mg PO QDAY Qty: 180 3RF Rx Instructions: Increased at last visit to 200 mg qd furosemide 40 mg Tablet 40 mg PO QAM
--- NOTE | 2021-11-15 11:59 | XRay Report ---
INDICATION: sob TECHNIQUE: AP portable semiupright chest x-ray COMPARISON: Previous chest x-rays dated 08/10/2021, 08/09/2021. FINDINGS: There is cardiomegaly. This is essentially unchanged. Patient has undergone prior TAVR procedure. Prominent pulmonary vascularity and bilateral diffuse pulmonary parenchymal infiltrates. Appearance is consistent with congestive heart failure. Pleural fluid is possible but not well visualized on this frontal view IMPRESSION: 1. Cardiomegaly and pulmonary edema consistent with congestive heart failure 2. Previous TAVR Interpreted and Authenticated by: Manuel Ochoa 11/15/21
[2021-11-15 12:02] LABS: POC Calcium, Ionized 1.2 (1.16-1.32); POC Creatinine 1.1 (0.6-1.2); POC Potassium 4.5 (3.3-5.1)
[2021-11-15 12:32] LABS: Basophils # (Auto) 0.05 K/mcL (0.00-0.30); Basophils % (Auto) 0.6 % (0.0-2.0); Eosinophils # (Auto) 0.34 K/mcL (0.00-0.70); Eosinophils % (Auto) 4.2 % (0.0-7.0); Hematocrit 32.2 % (40.1-51.0); Hemoglobin 10.7 g/dL (13.7-17.5); Lymphocytes # (Auto) 0.59 K/mcL (1.50-4.80); Lymphocytes % (Auto) 7.2 % (15.5-49.0); Mean Cell Volume 101.9 fL (80.0-100.0); Mean Corpuscular HGB Conc 33.2 g/dL (31.0-36.0); Mean Platelet Volume 9.6 fL (8.8-12.5); Monocytes # (Auto) 0.72 K/mcL (0.10-0.90); Monocytes % (Auto) 8.8 % (1.0-12.0); Neutrophils % (Auto) 76.6 % (38.0-78.0); Platelet Count 135 K/mcL (140-440); RBC 3.16 M/mcL (4.63-6.08); Red Cell Distribution Width 15.1 % (11.5-14.5); WBC 8.2 K/mcL (4.5-11.0)
[2021-11-15] MEDS ORDERED: FUROSEMIDE 100 MG/10 ML VIAL IV ONE (12:42)
[2021-11-15] MEDS ORDERED: WARFARIN 5 MG TABLET PO SCH (17:00)
--- NOTE | 2021-11-15 17:06 | Internal Med History&Physical ---
HPI History of Present Illness Patient information: Note initiated : 11/15/21 at 4:57 pm Service Date, if different from initiated Date: [] Patient: Shelby Ruff a 86 y/o M admitted on for Can't breathe. Chief Complaint: [Shortness of breath] Chief complaint: Shortness of breath History of present illness: Mr. Ruff is a 86 year old M history of CHF, atrial fibrillation on Coumadin, essential hypertensions, dyslipidemia, gout, type 2 diabetes mellitus, presenting with 1 week history of shortness of breath. Patient's normally used 1.5 L/min of oxygen's 28/08 but recently he weaned himself down to only using it at night during sleep. Over the past week, he is complaining of gradually worsening degree of shortness of breath. He is also complaining of dyspnea on exertions with 50 feet's. He denies any recent changes of his medication and he has been compliant to his medications. He denies any unintentional weight gain. He denies any orthopnea and he sleeps with 1 pillows. He denies any leg swelling. He denies any chest pain or chest tightness or palpitations. He denies any cough or wheezing or sputum productions. He denies any fever chills or diaphoresis. He denies any recent travel or sick contact. COVID screening, influenza a and B, and RSV are negative. No leukocytosis with WBC 8.2. BNP 2481. Chest x-ray showing cardiomegaly and pulmonary edema consistent with congestive heart failure. Previous TAVR. Constitutional Constitutional: Absent chills, excessive sweating, fatigue, fever(s) or weakness EENT Eyes: Absent blurry vision, change in vision, loss of vision or other visual disturbances Ears: Absent decreased hearing or tinnitus Nose, mouth and throat: Absent abnormal hearing, dry mouth, headache(s), nasal congestion or sore throat Cardiovascular Cardiovascular: Absent chest pain, chest pain at rest, edema, irregular heart rhythm or palpatations Respiratory Respiratory: Present dyspnea; Absent cough or wheezing Gastrointestinal Gastrointestinal: Absent abdominal pain, constipation, diarrhea, nausea or vomiting Musculoskeletal Musculoskeletal: Absent back pain, deformity, limited range of motion, muscle cramps, muscle weakness or numbness Integumentary Integumentary: Absent lesions, rash or wounds Neurological Neurological: Absent focal weakness, headache(s) or numbness Psychiatric Psychiatric: Absent anxiety, depression or hallucinations PFSH PFSH All Active Problems (Updated 11/15/21 @ 17:06 by Douglas Khan MD) Anemia, macrocytic (Acute) Anticoagulant long-term use (Chronic) Anticoagulant long-term use (Acute) Atrial fibrillation (Chronic) Atrial flutter (Chronic) Closed fracture (Acute) Colon polyps (Acute) Degenerative arthritis (Chronic) DM type 2 (diabetes mellitus, type 2) (Chronic) Edema (Chronic) Gallstones without obstruction of gallbladder (Chronic) Gout (Chronic) Hyperlipidemia (Chronic) Hypertension (Chronic) Ischemic heart disease, chronic (Chronic) Myocardial infarction, old (Acute) Peripheral neuropathy (Acute) History of tobacco use (Chronic) Weight loss (Acute) History of angioplasty (Acute) History of cardiac catheterization (Acute) History of colonoscopy (Acute) History of right knee surgery (Acute) History of surgery (Acute) Encounter for Health Maintenance Examination in Adult (Chronic) Colon polyp (Chronic) Aortic stenosis (Chronic) Polyarthralgia (Acute) CRP elevated (Acute) LOUISE positive (Acute) Rheumatoid factor negative (Acute) Hyperuricemia (Chronic) Inflammatory arthropathy (Acute) 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 home systemic 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 (Chronic) Long-term use of high-risk medication (Chronic) Pneumonia (Acute) Congestive heart failure (Acute) Wound of left upper extremity (Acute) Mitral regurgitation (Acute) Coronary artery disease (Acute) Coronary atherosclerosis (Acute) Severe mitral regurgitation (Acute) Obesity (Acute) Medicare annual wellness visit, initial (Acute) CHF (congestive heart failure) (Acute) Chest wall muscle strain (Acute) Annual physical exam (Acute) Acute and chronic respiratory failure with hypoxia (Acute) Acute exacerbation of CHF (congestive heart failure) (Acute) Medical History LOUISE positive Anticoagulant long-term use 03/21/2013. Anticoagulant use; chronic Anticoagulant long-term use Anticoagulation syndrome. Chronic. Extensive cardiology review with echo and cardiolite in April of 2010. Last review with Dr. Olsen in April of 2011. Aortic stenosis update echo 09/2019 Atrial fibrillation 04/11/2013 Atrial flutter Cardioverted in 2004 with recurrence of atrial fibrillation/flutter in [place], relegated to rate control and chronic anticoagulation; extensive cardiology review with echo and cardiolite in April of 2010, last review with Dr. Olsen in April of 2011. CHF (congestive heart failure) Closed fracture Cervical vetebral fracture; closed. Previous traumatic C2 fracture in November of 2008, followed to [facility] Colon polyps 2007 hyperplastic polyp. 05/16/12 colonoscopy -- Dr. Howard -- tubular adenomas. 5-year sequence. Coronary artery disease Coronary atherosclerosis CRP elevated Degenerative arthritis Most symptomatic in left knee 04/2012 DM type 2 (diabetes mellitus, type 2) Adult onset non insulin dependent diabetes. Metformin; mild peripheral neuropathy, taper off med in lieu of age and risk for complications with recent A1C of 5.4. Edema Encounter for Health Maintenance Examination in Adult Gallstones without obstruction of gallbladder Asymptomatic gallstones on ultrasound in 2006 Gout History of tobacco use Quit in 1985. Last chest x-ray in Mar, does not require routine screening; minimal oral tobacco use - recounseled in this regard. 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 Long-term use of high-risk medication Medicare annual wellness visit, initial Mitral regurgitation Myocardial infarction, old Distant history of Obesity Peripheral neuropathy Mild Polyarthralgia Rheumatoid factor negative Severe mitral regurgitation Weight loss 53 pound purposeful weight loss as of 04/08/12 Wound of left upper extremity Surgical History 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 2008 hyperplastic polyp. 05/16/12 Colonoscopy -- Dr. Howard -- tubular adenomas. 5-year sequence History of right knee surgery 11/2007 History of surgery 1985; stent placement Family History Sister Malignant neoplasm of breast 2 sisters had breast cancer Social History household members: spouse housing: house marital status: occupational status: retired occupation: [employer] smoking status: Former smoker alcohol intake frequency: holiday/special occasion only substance use type: does not use MEDS/ALLERGIES Home Medications and Allergies Home Medications Medication Instructions Recorded Confirmed Type pravastatin 40 mg tablet 20 mg PO Q2D 03/23/21 11/15/21 History potassium chloride 10 mEq 20 meq PO QDAY #180 tabs 06/09/21 11/15/21 Rx tablet,extended release warfarin 5 mg tablet See Rx Instructions PO .COMPLEX 09/02/21 11/15/21 Rx #108 tabs diltiazem HCl 120 mg 120 mg PO QAM #90 caps 09/21/21 11/15/21 Rx capsule,extended release 24 hr allopurinol 100 mg tablet 200 mg PO QDAY #180 tabs 11/07/21 11/15/21 Rx furosemide 80 mg tablet 80 tab PO QDAY 11/15/21 11/15/21 History lisinopril 2.5 mg tablet 2.5 mg PO QDAY 11/15/21 11/15/21 History Allergies Allergy/AdvReac Type Severity Reaction Status Date / Time No Known Drug Intolerances AdvReac Unknown Unknown Verified 11/07/21 09:44 EXAM Constitutional Vitals: Temp Pulse Resp BP Pulse Ox O2 Del Method O2 Flow Rate 36.5 C 105 H 16 121/75 95 2 11/15/21 11:11 11/15/21 16:30 11/15/21 15:30 11/15/21 16:30 11/15/21 16:30 11/15/21 15:48 11/15/21 15:48 General appearance: cooperative and no acute distress Head Head exam: Present atraumatic and normocephalic Eye Eye exam: Present EOMI and PERRL ENT ENT exam: Present mucous membranes moist, normal exam and normal external ear exam Additional comments: Nasal cannula in place Neck Neck exam: Present normal inspection; Absent lymphadenopathy, tenderness or thyromegaly Respiratory Respiratory exam: Absent accessory muscle use, respiratory distress or wheezes Cardiovascular Cardiovascular exam: Present irregular rhythm; Absent JVD GI/Abdominal GI/Abdominal exam: Present normal bowel sounds and soft; Absent organomegaly or tenderness Rectal Rectal exam: Present deferred Extremities Exam Extremities exam: Present full ROM, normal capillary refill, normal inspection and pedal edema; Absent tenderness Neurological Exam Neurological exam: Present alert, CN II-XII intact and oriented X3; Absent motor sensory deficit Psychiatric Psychiatric exam: Present normal affect and normal mood; Absent anxious or depressed Skin Skin exam: Present dry and intact Additional comments: Ecchymosis DATA Data Completed and Pending Labs: Labs from last 24 hours 11/15/21 11/15/21 11/15/21 11:58 11:50 11:50 WBC 8.2 RBC 3.16 L Hgb 10.7 L Hct 32.2 L POC Hct 32.0 L MCV 101.9 H MCH 33.9 MCHC 33.2 RDW 15.1 H Plt Count 135 L MPV 9.6 Immature Gran % (Auto) 2.6 H Neut % (Auto) 76.6 Lymph % (Auto) 7.2 L [place] % (Auto) 8.8 Eos % (Auto) 4.2 Baso % (Auto) 0.6 Lymph # (Auto) 0.59 L [place] # (Auto) 0.72 Eos # (Auto) 0.34 Baso # (Auto) 0.05 Immature Gran # 0.21 H Absolute Neutrophils 6.27 POC Sodium 137 POC Potassium 4.5 POC Chloride 99 POC Total CO2 29.0 POC BUN 32 H POC Creatinine 1.1 POC Glucose 124 H POC WB Ioniz Calcium 1.20 NT-Pro-B Natriuret Pep 2481.0 H A/P Assessment and plan (1) Anticoagulant long-term use: Status: Chronic Comment: 03/21/2013. Anticoagulant use; chronic (2) Atrial fibrillation: Status: Chronic Comment: 04/11/2013 Qualifiers: Atrial fibrillation type: chronic Qualified Code(s): I48.2 - Chronic atrial fibrillation (3) DM type 2 (diabetes mellitus, type 2): Status: Chronic Comment: Adult onset non insulin dependent diabetes. Metformin; mild peripheral neuropathy, taper off med in lieu of age and risk for complications with recent A1C of 5.4. 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 - Idiopathic chronic gout, unspecified ankle and foot, without tophus (tophi) (5) Hyperlipidemia: Status: Chronic Comment: Pravachol Qualifiers: Hyperlipidemia type: mixed hyperlipidemia Qualified Code(s): E78.2 - Mixed hyperlipidemia (6) Hypertension: Status: Chronic Qualifiers: Hypertension type: essential hypertension Qualified Code(s): I10 - Essential (primary) hypertension (7) Anemia, macrocytic: Status: Acute (8) Acute exacerbation of CHF (congestive heart failure): Status: Acute Qualifiers: Heart failure type: unspecified Qualified Code(s): I50.9 - Heart failure, unspecified Narrative A/P Narrative: Assessment and Plans: 1. CHF with exacerbation: Inpatient med surg telemetry Supplemental oxygen therapy Strict intake and output Daily weigh 2L/day fluid restriction Lasix 20mg IV BID Lisinopril No beta godfrey while exacerbation 2D echocardiogram 2. Atrial fibrillation: Daily INR, goal range 2-3 Warfarin Diltiazem 3. Gout: Allopurinol 4. Essential hypertension: Lasix 20mg IV BID Lisinopril Diltiazem 5. Hyperlipidemia: Continue statin therapy 6. Anemia, macrocytic: cbc w/ auto diff in the morning to trend H/H 7. T2DM: HgA1c Avoid oral hypoglycemics Accu Chek AC HS Accu Chek AC HS Hypoglycemia protocol Diabetic diet GI ppx: not currently indicated DVT ppx: Warfarin Code status: Full Prognosis: guarded Disposition: inpatient med surg telemetry; PT Time Spent With Patient Time: Total time spent is greater than 50% in coordination of care (as documented) at patient's floor/unit and/or counseling patient: Total time spent with greater than 50% in coordination of care (as documented) at patient's floor/unit and/or counseling patient:: 50 - 70 minutes
[2021-11-15] MEDS ORDERED: ONDANSETRON 4 MG/2 ML VIAL IV PRN (17:45)
[2021-11-15] MEDS ORDERED: DEXTROSE 31 GM ORAL.SUSP PO PRN (17:45)
[2021-11-15] MEDS ORDERED: ACETAMINOPHEN 325 MG TABLET PO PRN (17:45)
[2021-11-15] MEDS ORDERED: DEXTROSE 50% 50 ML VIAL IV PRN (17:45)
[2021-11-15] MEDS ORDERED: IPRATROPIUM/ALBUTEROL 3 ML AMPUL.NEB NEB PRN (17:45)
[2021-11-15] MEDS: INSULIN LISPRO 1 UNIT/0.01 ML UNIT SQ SCH ×2 (17:48→21:35)
[2021-11-15] MEDS: 0.9 % SODIUM CHLORIDE 10 ML SYRINGE IV SCH (21:35)
[2021-11-15] MEDS: SENNOSIDES 1 TABLET PO SCH (21:36)
[2021-11-15] MEDS: DOCUSATE SODIUM 100 MG CAPSULE PO SCH (21:36)
[2021-11-15] MEDS: traZODone HCL 50 MG TABLET PO PRN (21:42)
[2021-11-16] MEDS: 0.9 % SODIUM CHLORIDE 10 ML SYRINGE IV SCH ×3 (05:44→20:06)
[2021-11-16 06:43] LABS: Basophils # (Auto) 0.12 K/mcL (0.00-0.30); Basophils % (Auto) 1.5 % (0.0-2.0); Eosinophils # (Auto) 0.52 K/mcL (0.00-0.70); Eosinophils % (Auto) 6.5 % (0.0-7.0); Hematocrit 33.7 % (40.1-51.0); Lymphocytes # (Auto) 0.84 K/mcL (1.50-4.80); Lymphocytes % (Auto) 10.6 % (15.5-49.0); Mean Cell Volume 104.7 fL (80.0-100.0); Mean Corpuscular HGB Conc 32.6 g/dL (31.0-36.0); Mean Platelet Volume 9.6 fL (8.8-12.5); Monocytes % (Auto) 8.8 % (1.0-12.0); Neutrophils % (Auto) 70.7 % (38.0-78.0); Platelet Count 142 K/mcL (140-440); RBC 3.22 M/mcL (4.63-6.08); Red Cell Distribution Width 14.9 % (11.5-14.5)
[2021-11-16 07:16] LABS: ALT/SGPT 8 U/L (<40); AST/SGOT 17 U/L (<40); Albumin 3.9 gm/dL (3.2-5.2); Albumin/Globulin Ratio 1.6 (1.0-2.3); Alkaline Phosphatase 59 U/L (39-117); Blood Urea Nitrogen 26 mg/dL (8-23); Calcium 8.7 mg/dL (8.6-10.4); Carbon Dioxide 32 mmol/L (22-30); Chloride 100 mmol/L (96-108); Globulin 2.4 gm/dL (2.2-3.7); Glomerular Filtration Rate 78; Glucose 96 mg/dL (70-105); Phosphorous 4.1 mg/dL (2.5-4.5)
[2021-11-16 07:21] LABS: INR 2.3 (0.9-1.1); Prothrombin Time 26.5 sec (11.9-14.5)
[2021-11-16] MEDS: INSULIN LISPRO 1 UNIT/0.01 ML UNIT SQ SCH ×4 (07:29→20:23)
[2021-11-16] MEDS: FUROSEMIDE 20 MG/2 ML VIAL IV SCH ×2 (07:30→17:40)
[2021-11-16] MEDS: DILTIAZEM 120 MG CAP.XL.24H PO SCH (08:52)
[2021-11-16] MEDS: DOCUSATE SODIUM 100 MG CAPSULE PO SCH ×2 (08:53→20:07)
[2021-11-16] MEDS: POTASSIUM CHLORIDE 10 MEQ TABLET PO SCH (08:53)
[2021-11-16] MEDS: ALLOPURINOL 100 MG TABLET PO SCH (08:53)
[2021-11-16] MEDS: LISINOPRIL 2.5 MG TABLET PO SCH (10:02)
--- NOTE | 2021-11-16 10:27 | Internal Med Progress Note ---
SUBJECTIVE Subjective Patient information: Note initiated : 11/16/21 at 10:24 am Service Date, if different from initiated Date: [] Patient: Shelby Ruff a 86 y/o M admitted on 11/15/21 for Can't breathe. Chief Complaint: [] Interval history: Mr. Ruff is a 86 year old M history of CHF, atrial fibrillation on Coumadin, essential hypertensions, dyslipidemia, gout, type 2 diabetes mellitus, presenting with 1 week history of shortness of breath. Patient's normally used 1.5 L/min of oxygen's 28/08 but recently he weaned himself down to only using it at night during sleep. Over the past week, he is complaining of gradually worsening degree of shortness of breath. He is also complaining of dyspnea on exertions with 50 feet's. He denies any recent changes of his medication and he has been compliant to his medications. He denies any unintentional weight gain. He denies any orthopnea and he sleeps with 1 pillows. He denies any leg swelling. He denies any chest pain or chest tightness or palpitations. He denies any cough or wheezing or sputum productions. He denies any fever chills or diaphoresis. He denies any recent travel or sick contact. COVID screening, influenza a and B, and RSV are negative. No leukocytosis with WBC 8.2. BNP 2481. Chest x-ray showing cardiomegaly and pulmonary edema consistent with congestive heart failure. Previous TAVR. 11/16: There was no major overnight events. Patient is on 3 L/min of oxygen. INR 2.3, therapeutic. Patient stated that his breathing has improved subjectively. Denies cough or wheezing. Denies chest pain or palpitations. Pending echocardiogram report. Continue IV Lasix as diuresis. Continue Lisinopril. Pending echocardiogram report. Pending physical therapy evaluation and treatment for placement planning. Constitutional Vitals: Vital Signs Temp Pulse Resp BP Pulse Ox O2 Del Method O2 Flow Rate 37.2 C 106 H 22 98/69 94 3 11/16/21 08:00 11/16/21 08:00 11/16/21 08:00 11/16/21 08:00 11/16/21 08:00 11/16/21 08:00 11/16/21 08:00 Period Temp Pulse Resp BP Sys/Chang Pulse Ox O2 Del Method O2 Flow Rate Last 24 Hr 36.5 C-37.2 C 53-120 12-24 77-135/50-89 76-98 Nasal Cannula- Room Air 1.5-4 Intake and Output 11/15/21 11/16/21 11/16/21 21:59 05:59 13:59 Intake Total 019 315 7337 Output Total 2300 350 Balance -2059 1080 Weight 98.067 kg Intake & Output: Intake & Output 11/15/21 11/16/21 11/16/21 21:59 05:59 13:59 Intake Total 353 364 3942 Output Total 2300 350 Balance -[id number] 1080 Weight 98.067 kg Intake: Oral 158 958 7770 Output: Void Amount 2300 350 Other: Urine Appearance Clear Clear Urine Color Yellow Yellow Head Head exam: Present atraumatic and normal inspection Eye Eye exam: Present normal appearance ENT ENT exam: Present mucous membranes moist, normal exam and normal external ear exam Additional comments: Nasal cannula in place Neck Neck exam: Present normal inspection Respiratory Respiratory exam: Present normal respiratory exam Cardiovascular Cardiovascular exam: Present irregular rhythm GI/Abdominal GI/Abdominal exam: Present normal bowel sounds Extremities Exam Extremities exam: Present pedal edema Back Exam Back exam: Present normal inspection Neurological Exam Neurological exam: Present alert and oriented X3 Skin Skin exam: Present intact and warm OBJ DATA Labs CBC & Chem 7: 11/16/21 05:54 11/16/21 05:54 Labs: Abnormal Lab Results 11/16/21 11/16/21 11/16/21 05:54 05:54 05:54 RBC 3.22 L Hgb 11.0 L Hct 33.7 L POC Hct MCV 104.7 H MCH 34.2 H RDW 14.9 H Plt Count Immature Gran % (Auto) 1.9 H Lymph % (Auto) 10.6 L Lymph # (Auto) 0.84 L Immature Gran # 0.15 H PT 26.5 H INR 2.3 H Carbon Dioxide 32 H Anion Gap 5.0 L POC BUN BUN 26 H POC Glucose NT-Pro-B Natriuret Pep 11/15/21 11/15/21 11/15/21 11:58 11:50 11:50 RBC 3.16 L Hgb 10.7 L Hct 32.2 L POC Hct 32.0 L MCV 101.9 H MCH RDW 15.1 H Plt Count 135 L Immature Gran % (Auto) 2.6 H Lymph % (Auto) 7.2 L Lymph # (Auto) 0.59 L Immature Gran # 0.21 H PT INR Carbon Dioxide Anion Gap POC BUN 32 H BUN POC Glucose 124 H NT-Pro-B Natriuret Pep 2481.0 H Meds: Medications Acetaminophen (Acetaminophen 325 Mg Tablet) 650 mg PO Q6HP PRN; Protocol PRN Reason: Per Pain Protocol/Fever > 101 Albuterol/Ipratropium (Ipratropium/Albuterol 3 Ml Ampul.Neb) 3 ml NEB Q4HRT PRN PRN Reason: Wheezing Allopurinol (Allopurinol 100 Mg Tablet) 200 mg PO QDAY [facility] Last Admin: 11/16/21 08:53 Dose: 200 mg Dextrose (Dextrose 50% 50 Ml Vial) 0 ml IV UD PRN PRN Reason: Per Sliding Scale Diagnostic Test (Pha) (Accu-Chek 1 Each Strip) 1 each FS [facility] Last Admin: 11/16/21 07:28 Dose: 1 each Diltiazem HCl (Diltiazem 120 Mg Cap.Xl.24h) 120 mg PO QAM [facility] Last Admin: 11/16/21 08:52 Dose: 120 mg Docusate Sodium (Docusate Sodium 100 Mg Capsule) 100 mg PO BID [facility] Last Admin: 11/16/21 08:53 Dose: 100 mg Furosemide (Furosemide 20 Mg/2 Ml Vial) 20 mg IV BIDD [facility] Last Admin: 11/16/21 07:30 Dose: 20 mg Glucose (Dextrose 31 Gm Oral.Susp) 15 gm PO PRN PRN PRN Reason: Hypoglycemia Insulin Human Lispro (Insulin Lispro 1 Unit/0.01 Ml Unit) 0 unit SQ [facility]; Protocol Last Admin: 11/16/21 07:29 Dose: Not Given Lisinopril (Lisinopril 2.5 Mg Tablet) 2.5 mg PO QDAY [facility] Last Admin: 11/16/21 10:02 Dose: Not Given Ondansetron HCl (Ondansetron 4 Mg/2 Ml Vial) 4 mg IV Q6HP PRN PRN Reason: Nausea And Vomiting Potassium Chloride (Potassium Chloride 10 Meq Tablet) 20 meq PO QDAY [facility] Last Admin: 11/16/21 08:53 Dose: 20 meq Senna (Sennosides 1 Tablet) 2 tab PO HS [facility] Last Admin: 11/15/21 21:36 Dose: Not Given Simvastatin (Simvastatin 10 Mg Tablet) 10 mg PO Q48@2100 VANESSA Sodium Chloride (0.9 % Sodium Chloride 10 Ml Syringe) 10 ml IV Q8 [facility] Last Admin: 11/16/21 05:44 Dose: 10 ml Trazodone HCl (Trazodone Hcl 50 Mg Tablet) 25 mg PO HSP PRN PRN Reason: Insomnia Last Admin: 11/15/21 21:42 Dose: 25 mg Warfarin Sodium (Warfarin Per Pharmacy) 1 order PO UD [facility] Warfarin Sodium (Warfarin 7.5 Mg Tablet) 7.5 mg PO ONCE@1400 ONE Stop: 11/16/21 14:01 A/P Assessment and plan (1) Anticoagulant long-term use: Status: Chronic Comment: 03/21/2013. Anticoagulant use; chronic (2) Atrial fibrillation: Status: Chronic Comment: 04/11/2013 Qualifiers: Atrial fibrillation type: chronic Qualified Code(s): I48.2 - Chronic atrial fibrillation (3) DM type 2 (diabetes mellitus, type 2): Status: Chronic Comment: Adult onset non insulin dependent diabetes. Metformin; mild peripheral neuropathy, taper off med in lieu of age and risk for complications with recent A1C of 5.4. 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 - Idiopathic chronic gout, unspecified ankle and foot, without tophus (tophi) (5) Hyperlipidemia: Status: Chronic Comment: Pravachol Qualifiers: Hyperlipidemia type: mixed hyperlipidemia Qualified Code(s): E78.2 - Mixed hyperlipidemia (6) Hypertension: Status: Chronic Qualifiers: Hypertension type: essential hypertension Qualified Code(s): I10 - Essential (primary) hypertension (7) Anemia, macrocytic: Status: Acute (8) Acute exacerbation of CHF (congestive heart failure): Status: Acute Qualifiers: Heart failure type: unspecified Qualified Code(s): I50.9 - Heart failure, unspecified Narrative A/P Narrative: Assessment and Plans: 1. CHF with exacerbation: Inpatient med surg telemetry Supplemental oxygen therapy Strict intake and output Daily weigh 2L/day fluid restriction Lasix 20mg IV BID Lisinopril No beta godfrey while exacerbation 2D echocardiogram pending 2. Atrial fibrillation: Daily INR, goal range 2-3 Warfarin Diltiazem 3. Gout: Allopurinol 4. Essential hypertension: Lasix 20mg IV BID Lisinopril Diltiazem 5. Hyperlipidemia: Continue statin therapy 6. Anemia, macrocytic: cbc w/ auto diff in the morning to trend H/H 7. T2DM: HgA1c Avoid oral hypoglycemics Accu Chek AC HS Accu Chek AC HS Hypoglycemia protocol Diabetic diet GI ppx: not currently indicated DVT ppx: Warfarin Code status: DNR Prognosis: guarded Disposition: inpatient med surg telemetry; PT Time Spent With Patient Time: Total time spent is greater than 50% in coordination of care (as documented) at patient's floor/unit and/or counseling patient: Total time spent with greater than 50% in coordination of care (as documented) at patient's floor/unit and/or counseling patient:: 25 - 35 minutes QUALITY VTE Deep Vein Thrombosis/Pulmonary Embolism Present on Admission: No
[2021-11-16] MEDS ORDERED: WARFARIN 7.5 MG TABLET PO ONE (14:00)
[2021-11-16] MEDS: SENNOSIDES 1 TABLET PO SCH (20:07)
[2021-11-16] MEDS ORDERED: SIMVASTATIN 10 MG TABLET PO SCH (21:00)
[2021-11-17] MEDS: 0.9 % SODIUM CHLORIDE 10 ML SYRINGE IV SCH ×3 (06:13→20:51)
[2021-11-17 07:24] LABS: Basophils # (Auto) 0.11 K/mcL (0.00-0.30); Basophils % (Auto) 1.3 % (0.0-2.0); Eosinophils # (Auto) 0.65 K/mcL (0.00-0.70); Eosinophils % (Auto) 7.5 % (0.0-7.0); Lymphocytes # (Auto) 0.94 K/mcL (1.50-4.80); Lymphocytes % (Auto) 10.9 % (15.5-49.0); Mean Cell Volume 101.9 fL (80.0-100.0); Mean Corpuscular HGB Conc 33.3 g/dL (31.0-36.0); Mean Platelet Volume 9.4 fL (8.8-12.5); Monocytes # (Auto) 0.82 K/mcL (0.10-0.90); Monocytes % (Auto) 9.5 % (1.0-12.0); Neutrophils % (Auto) 68.7 % (38.0-78.0); Platelet Count 145 K/mcL (140-440); RBC 3.24 M/mcL (4.63-6.08); WBC 8.7 K/mcL (4.5-11.0)
[2021-11-17] MEDS: FUROSEMIDE 20 MG/2 ML VIAL IV SCH ×2 (07:45→16:13)
[2021-11-17] MEDS: INSULIN LISPRO 1 UNIT/0.01 ML UNIT SQ SCH ×4 (07:45→21:06)
[2021-11-17 08:21] LABS: ALT/SGPT 7 U/L (<40); AST/SGOT 18 U/L (<40); Albumin 3.6 gm/dL (3.2-5.2); Albumin/Globulin Ratio 1.4 (1.0-2.3); Alkaline Phosphatase 55 U/L (39-117); Bilirubin,Total 0.9 mg/dL (0.1-1.0); Blood Urea Nitrogen 32 mg/dL (8-23); Calcium 8.9 mg/dL (8.6-10.4); Carbon Dioxide 33 mmol/L (22-30); Chloride 96 mmol/L (96-108); Globulin 2.5 gm/dL (2.2-3.7); Glomerular Filtration Rate 68; Glucose 92 mg/dL (70-105); Phosphorous 3.6 mg/dL (2.5-4.5)
[2021-11-17 08:33] LABS: INR 2.1 (0.9-1.1); Prothrombin Time 24.5 sec (11.9-14.5)
[2021-11-17] MEDS: POTASSIUM CHLORIDE 10 MEQ TABLET PO SCH (08:40)
[2021-11-17] MEDS: LISINOPRIL 2.5 MG TABLET PO SCH (08:40)
[2021-11-17] MEDS: DILTIAZEM 120 MG CAP.XL.24H PO SCH (08:41)
[2021-11-17] MEDS: ALLOPURINOL 100 MG TABLET PO SCH (08:41)
[2021-11-17] MEDS: DOCUSATE SODIUM 100 MG CAPSULE PO SCH ×2 (08:42→21:05)
[2021-11-17] MEDS ORDERED: LEVALBUTEROL 1.25 MG/3 ML AMPUL.NEB NEB PRN (10:51)
[2021-11-17] MEDS ORDERED: METOPROLOL TARTRATE 5 MG/5 ML VIAL IV PRN (10:51)
[2021-11-17] MEDS ORDERED: WARFARIN 7.5 MG TABLET PO ONE (14:00)
--- NOTE | 2021-11-17 14:46 | Internal Med Progress Note ---
SUBJECTIVE Subjective Patient information: Note initiated : 11/17/21 at 2:41 pm Service Date, if different from initiated Date: [] Patient: Shelby Ruff a 86 y/o M admitted on 11/15/21 for Can't breathe. Chief Complaint: [] Interval history: Mr. Ruff is a 86 year old M history of CHF, atrial fibrillation on Coumadin, essential hypertensions, dyslipidemia, gout, type 2 diabetes mellitus, presenting with 1 week history of shortness of breath. Patient's normally used 1.5 L/min of oxygen's 28/08 but recently he weaned himself down to only using it at night during sleep. Over the past week, he is complaining of gradually worsening degree of shortness of breath. He is also complaining of dyspnea on exertions with 50 feet's. He denies any recent changes of his medication and he has been compliant to his medications. He denies any unintentional weight gain. He denies any orthopnea and he sleeps with 1 pillows. He denies any leg swelling. He denies any chest pain or chest tightness or palpitations. He denies any cough or wheezing or sputum productions. He denies any fever chills or diaphoresis. He denies any recent travel or sick contact. COVID screening, influenza a and B, and RSV are negative. No leukocytosis with WBC 8.2. BNP 2481. Chest x-ray showing cardiomegaly and pulmonary edema consistent with congestive heart failure. Previous TAVR. 11/16: There was no major overnight events. Patient is on 3 L/min of oxygen. INR 2.3, therapeutic. Patient stated that his breathing has improved subjectively. Denies cough or wheezing. Denies chest pain or palpitations. Pending echocardiogram report. Continue IV Lasix as diuresis. Continue Lisinopril. Pending echocardiogram report. Pending physical therapy evaluation and treatment for placement planning. 11/17: Currently on 4 L/min of oxygen's. Echocardiogram showing mildly reduced left ventricular systolic function with estimated LVEF of 45%. INR 2.1 today, therapeutic. Patient is stating that he is shortness of breath has improved. Denies cough or wheezing. Denies chest pain or palpitations. Patient refused to work with physical therapist. Continue IV Lasix as diuresis. Continue Lisinopril. No beta-godfrey during heart failure exacerbations breath should be added at the time of hospital discharge. Constitutional Vitals: Vital Signs Temp Pulse Resp BP Pulse Ox O2 Del Method O2 Flow Rate 37.0 C 83 16 102/70 97 4 11/17/21 11:38 11/17/21 11:38 11/17/21 11:38 11/17/21 11:38 11/17/21 11:38 11/17/21 11:38 11/17/21 11:38 Period Temp Pulse Resp BP Sys/Chang Pulse Ox O2 Del Method O2 Flow Rate Last 24 Hr 36.1 C-37.0 C 78-105 16-20 90-128/59-84 94-98 Nasal Cannula- Nasal Cannula 4-4 Intake and Output 11/17/21 11/17/21 11/17/21 05:59 13:59 21:59 Intake Total 50 600 Output Total 350 850 Balance -300 -250 Intake & Output: Intake & Output 11/17/21 11/17/21 11/17/21 05:59 13:59 21:59 Intake Total 50 600 Output Total 350 850 Balance -300 -250 Intake: Oral 50 600 Output: Void Amount 350 850 Other: Meal Lunch Percent of Meal Consumed 75% Feeding Ability Independent Urine Appearance Clear Clear Urine Color Yellow Yellow Urine Odor Normal Head Head exam: Present atraumatic and normal inspection Eye Eye exam: Present normal appearance ENT ENT exam: Present mucous membranes moist, normal exam and normal external ear exam Additional comments: Nasal cannula in place Neck Neck exam: Present normal inspection Respiratory Respiratory exam: Present normal respiratory exam Cardiovascular Cardiovascular exam: Present irregular rhythm GI/Abdominal GI/Abdominal exam: Present normal bowel sounds Extremities Exam Extremities exam: Present pedal edema Back Exam Back exam: Present normal inspection Neurological Exam Neurological exam: Present alert and oriented X3 Skin Skin exam: Present intact and warm OBJ DATA Labs CBC & Chem 7: 11/17/21 05:47 11/17/21 05:47 Labs: Abnormal Lab Results 11/17/21 11/17/21 11/17/21 05:47 05:47 05:47 RBC 3.24 L Hgb 11.0 L Hct 33.0 L POC Hct MCV 101.9 H MCH RDW 15.0 H Plt Count Immature Gran % (Auto) 2.1 H Lymph % (Auto) 10.9 L Eos % (Auto) 7.5 H Lymph # (Auto) 0.94 L Immature Gran # 0.18 H PT 24.5 H INR 2.1 H Carbon Dioxide 33 H Anion Gap 6.0 L POC BUN BUN 32 H POC Glucose NT-Pro-B Natriuret Pep 11/16/21 11/16/21 11/16/21 05:54 05:54 05:54 RBC 3.22 L Hgb 11.0 L Hct 33.7 L POC Hct MCV 104.7 H MCH 34.2 H RDW 14.9 H Plt Count Immature Gran % (Auto) 1.9 H Lymph % (Auto) 10.6 L Eos % (Auto) Lymph # (Auto) 0.84 L Immature Gran # 0.15 H PT 26.5 H INR 2.3 H Carbon Dioxide 32 H Anion Gap 5.0 L POC BUN BUN 26 H POC Glucose NT-Pro-B Natriuret Pep 11/15/21 11/15/21 11/15/21 11:58 11:50 11:50 RBC 3.16 L Hgb 10.7 L Hct 32.2 L POC Hct 32.0 L MCV 101.9 H MCH RDW 15.1 H Plt Count 135 L Immature Gran % (Auto) 2.6 H Lymph % (Auto) 7.2 L Eos % (Auto) Lymph # (Auto) 0.59 L Immature Gran # 0.21 H PT INR Carbon Dioxide Anion Gap POC BUN 32 H BUN POC Glucose 124 H NT-Pro-B Natriuret Pep 2481.0 H Meds: Medications Acetaminophen (Acetaminophen 325 Mg Tablet) 650 mg PO Q6HP PRN; Protocol PRN Reason: Per Pain Protocol/Fever > 101 Allopurinol (Allopurinol 100 Mg Tablet) 200 mg PO QDAY [facility] Last Admin: 11/17/21 08:41 Dose: 200 mg Dextrose (Dextrose 50% 50 Ml Vial) 0 ml IV UD PRN PRN Reason: Per Sliding Scale Diagnostic Test (Pha) (Accu-Chek 1 Each Strip) 1 each FS ACHS [facility] Last Admin: 11/17/21 12:07 Dose: 1 each Diltiazem HCl (Diltiazem 120 Mg Cap.Xl.24h) 120 mg PO QAM [facility] Last Admin: 11/17/21 08:41 Dose: 120 mg Docusate Sodium (Docusate Sodium 100 Mg Capsule) 100 mg PO BID [facility] Last Admin: 11/17/21 08:42 Dose: 100 mg Furosemide (Furosemide 20 Mg/2 Ml Vial) 20 mg IV BIDD [facility] Last Admin: 11/17/21 07:45 Dose: 20 mg Glucose (Dextrose 31 Gm Oral.Susp) 15 gm PO PRN PRN PRN Reason: Hypoglycemia Insulin Human Lispro (Insulin Lispro 1 Unit/0.01 Ml Unit) 0 unit SQ ACHS [facility]; Protocol Last Admin: 11/17/21 12:10 Dose: Not Given Levalbuterol HCl (Levalbuterol 1.25 Mg/3 Ml Ampul.Neb) 1.25 mg NEB Q4HRT PRN PRN Reason: Shortness Of Breath Lisinopril (Lisinopril 2.5 Mg Tablet) 2.5 mg PO QDAY [facility] Last Admin: 11/17/21 08:40 Dose: 2.5 mg Metoprolol Tartrate (Metoprolol Tartrate 5 Mg/5 Ml Vial) 5 mg IV Q5M PRN PRN Reason: HR >120 Ondansetron HCl (Ondansetron 4 Mg/2 Ml Vial) 4 mg IV Q6HP PRN PRN Reason: Nausea And Vomiting Potassium Chloride (Potassium Chloride 10 Meq Tablet) 20 meq PO QDAY [facility] Last Admin: 11/17/21 08:40 Dose: 20 meq Senna (Sennosides 1 Tablet) 2 tab PO HS [facility] Last Admin: 11/16/21 20:07 Dose: Not Given Simvastatin (Simvastatin 10 Mg Tablet) 10 mg PO Q48@2100 [facility] Last Admin: 11/16/21 20:23 Dose: 10 mg Sodium Chloride (0.9 % Sodium Chloride 10 Ml Syringe) 10 ml IV Q8 [facility] Last Admin: 11/17/21 13:08 Dose: 10 ml Trazodone HCl (Trazodone Hcl 50 Mg Tablet) 25 mg PO HSP PRN PRN Reason: Insomnia Last Admin: 11/15/21 21:42 Dose: 25 mg Warfarin Sodium (Warfarin Per Pharmacy) 1 order PO UD [facility] A/P Assessment and plan (1) Anticoagulant long-term use: Status: Chronic Comment: 03/21/2013. Anticoagulant use; chronic (2) Atrial fibrillation: Status: Chronic Comment: 04/11/2013 Qualifiers: Atrial fibrillation type: chronic Qualified Code(s): I48.2 - Chronic atrial fibrillation (3) DM type 2 (diabetes mellitus, type 2): Status: Chronic Comment: Adult onset non insulin dependent diabetes. Metformin; mild peripheral neuropathy, taper off med in lieu of age and risk for complications with recent A1C of 5.4. 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, unspecified ankle and foot, without tophus (tophi) (5) Hyperlipidemia: Status: Chronic Comment: Pravachol Qualifiers: Hyperlipidemia type: mixed hyperlipidemia Qualified Code(s): E78.2 - Mixed hyperlipidemia (6) Hypertension: Status: Chronic Qualifiers: Hypertension type: essential hypertension Qualified Code(s): I10 - Essential (primary) hypertension (7) Anemia, macrocytic: Status: Acute (8) Acute exacerbation of CHF (congestive heart failure): Status: Acute Qualifiers: Heart failure type: unspecified Qualified Code(s): I50.9 - Heart failure, unspecified Narrative A/P Narrative: Assessment and Plans: 1. CHF with exacerbation: Inpatient med surg telemetry Supplemental oxygen therapy Strict intake and output Daily weigh 2L/day fluid restriction Lasix 20mg IV BID Lisinopril No beta-godfrey during heart failure exacerbations breath should be added at the time of hospital discharge Echocardiogram showing mildly reduced left ventricular systolic function with estimated LVEF of 45% 2. Atrial fibrillation: Daily INR, goal range 2-3 Warfarin Diltiazem 3. Gout: Allopurinol 4. Essential hypertension: Lasix 20mg IV BID Lisinopril Diltiazem 5. Hyperlipidemia: Continue statin therapy 6. Anemia, macrocytic: cbc w/ auto diff in the morning to trend H/H 7. T2DM: HgA1c Avoid oral hypoglycemics Accu Chek AC HS Accu Chek AC HS Hypoglycemia protocol Diabetic diet GI ppx: not currently indicated DVT ppx: Warfarin Code status: DNR Prognosis: guarded Disposition: inpatient med surg telemetry; PT Time Spent With Patient Time: Total time spent is greater than 50% in coordination of care (as documented) at patient's floor/unit and/or counseling patient: QUALITY VTE Deep Vein Thrombosis/Pulmonary Embolism Present on Admission: No
[2021-11-17] MEDS: traZODone HCL 50 MG TABLET PO PRN (21:05)
[2021-11-17] MEDS: SENNOSIDES 1 TABLET PO SCH (21:05)
[2021-11-18] MEDS: 0.9 % SODIUM CHLORIDE 10 ML SYRINGE IV SCH ×2 (04:50→13:30)
[2021-11-18 06:56] LABS: Basophils # (Auto) 0.08 K/mcL (0.00-0.30); Basophils % (Auto) 0.9 % (0.0-2.0); Eosinophils # (Auto) 0.54 K/mcL (0.00-0.70); Eosinophils % (Auto) 6.2 % (0.0-7.0); Hematocrit 33.6 % (40.1-51.0); Hemoglobin 11.3 g/dL (13.7-17.5); Lymphocytes # (Auto) 0.93 K/mcL (1.50-4.80); Lymphocytes % (Auto) 10.7 % (15.5-49.0); Mean Cell Volume 101.5 fL (80.0-100.0); Mean Corpuscular HGB Conc 33.6 g/dL (31.0-36.0); Mean Platelet Volume 9.6 fL (8.8-12.5); Monocytes # (Auto) 0.68 K/mcL (0.10-0.90); Monocytes % (Auto) 7.8 % (1.0-12.0); Neutrophils % (Auto) 72.6 % (38.0-78.0); Platelet Count 151 K/mcL (140-440); RBC 3.31 M/mcL (4.63-6.08); Red Cell Distribution Width 14.9 % (11.5-14.5); WBC 8.7 K/mcL (4.5-11.0)
[2021-11-18 07:14] LABS: INR 2.5 (0.9-1.1); Prothrombin Time 27.8 sec (11.9-14.5)
[2021-11-18 07:23] LABS: ALT/SGPT 8 U/L (<40); AST/SGOT 17 U/L (<40); Albumin 3.6 gm/dL (3.2-5.2); Albumin/Globulin Ratio 1.3 (1.0-2.3); Alkaline Phosphatase 58 U/L (39-117); Bilirubin,Total 0.9 mg/dL (0.1-1.0); Blood Urea Nitrogen 33 mg/dL (8-23); Calcium 9.1 mg/dL (8.6-10.4); Carbon Dioxide 33 mmol/L (22-30); Chloride 96 mmol/L (96-108); Globulin 2.7 gm/dL (2.2-3.7); Glomerular Filtration Rate 68; Glucose 95 mg/dL (70-105); Phosphorous 3.8 mg/dL (2.5-4.5)
[2021-11-18] MEDS: INSULIN LISPRO 1 UNIT/0.01 ML UNIT SQ SCH ×3 (07:57→16:44)
[2021-11-18] MEDS: ALLOPURINOL 100 MG TABLET PO SCH (08:02)
[2021-11-18] MEDS: DILTIAZEM 120 MG CAP.XL.24H PO SCH (08:02)
[2021-11-18] MEDS: LISINOPRIL 2.5 MG TABLET PO SCH (08:02)
[2021-11-18] MEDS: DOCUSATE SODIUM 100 MG CAPSULE PO SCH (08:02)
[2021-11-18] MEDS: POTASSIUM CHLORIDE 10 MEQ TABLET PO SCH (08:03)
[2021-11-18] MEDS: FUROSEMIDE 20 MG/2 ML VIAL IV SCH ×2 (08:30→15:01)
[2021-11-18] MEDS ORDERED: WARFARIN 2 MG TABLET PO ONE (14:00)
--- NOTE | 2021-11-18 17:02 | Discharge Summary ---
Discharge Provider Provider IMPORTANT FOLLOW-UP INFORMATION FOR PCP: Patient information: Note initiated : 11/18/21 at 4:59 pm Service Date, if different from initiated Date: [] Patient: Shelby Ruff a 86 y/o M admitted on 11/15/21 for Can't breathe. Chief Complaint: [] Date of admission: 11/15/21 17:40 Discharge date: 11/18/21 Primary care physician: Jaziel Joseph MD Attending physician on admission: Douglas Khan Consults: 11/15/21 Consult to Physician [CONS] Stat Comment: chf exacerbation Consulting Provider: Douglas Khan Reason For Exam: Physician to Consult 11/15/21 15:03 Consult to Physician [CONS] Stat Comment: Consulting Provider: Douglas Khan Reason For Exam: Physician to Consult Attending physician on discharge: Douglas Khan COURSE Hospital Course Hospital course: Mr. Ruff is a 86 year old M history of CHF, atrial fibrillation on Coumadin, essential hypertensions, dyslipidemia, gout, type 2 diabetes mellitus, presenting with 1 week history of shortness of breath. Patient's normally used 1.5 L/min of oxygen's 28/08 but recently he weaned himself down to only using it at night during sleep. Over the past week, he is complaining of gradually worsening degree of shortness of breath. He is also complaining of dyspnea on exertions with 50 feet's. He denies any recent changes of his medication and he has been compliant to his medications. He denies any unintentional weight gain. He denies any orthopnea and he sleeps with 1 pillows. He denies any leg swelling. He denies any chest pain or chest tightness or palpitations. He denies any cough or wheezing or sputum productions. He denies any fever chills or diaphoresis. He denies any recent travel or sick contact. COVID screening, influenza a and B, and RSV are negative. No leukocytosis with WBC 8.2. BNP 2481. Chest x-ray showing cardiomegaly and pulmonary edema consistent with congestive heart failure. Previous TAVR. 11/16: There was no major overnight events. Patient is on 3 L/min of oxygen. INR 2.3, therapeutic. Patient stated that his breathing has improved subjectively. Denies cough or wheezing. Denies chest pain or palpitations. Pending echocardiogram report. Continue IV Lasix as diuresis. Continue Lisinopril. Pending echocardiogram report. Pending physical therapy evaluation and treatment for placement planning. 11/17: Currently on 4 L/min of oxygen's. Echocardiogram showing mildly reduced left ventricular systolic function with estimated LVEF of 45%. INR 2.1 today, therapeutic. Patient is stating that he is shortness of breath has improved. Denies cough or wheezing. Denies chest pain or palpitations. Patient refused to work with physical therapist. Continue IV Lasix as diuresis. Continue Lisinopril. No beta-godfrey during heart failure exacerbations breath should be added at the time of hospital discharge. 11/18: Discharged home. Instruction to follow up with PCP within 1 week given. Rx given to patient. All questions answered prior to patient being physically discharged. Discharge diagnosis: CHF exacerbation Time Spent with Patient Time attestation: Total time spent providing and/or coordinating discharge services: Time spent: Less than 30 minutes EXAM Constitutional Vitals: Temp Pulse Resp BP Pulse Ox O2 Del Method O2 Flow Rate 36.8 C 77 18 108/66 96 3 11/18/21 16:00 11/18/21 16:00 11/18/21 16:00 11/18/21 16:00 11/18/21 16:00 11/18/21 16:00 11/18/21 16:00 General appearance: cooperative and no acute distress Head Head exam: Present atraumatic and normocephalic Eye Eye exam: Present EOMI and PERRL ENT ENT exam: Present mucous membranes moist, normal exam and normal external ear exam Neck Neck exam: Present normal inspection; Absent lymphadenopathy, tenderness or thyromegaly Respiratory Respiratory exam: Absent accessory muscle use, respiratory distress or wheezes Cardiovascular Cardiovascular exam: Present normal rate and rhythm; Absent JVD GI/Abdominal GI/Abdominal exam: Present normal bowel sounds and soft; Absent organomegaly or tenderness Rectal Rectal exam: Present deferred Extremities Exam Extremities exam: Present full ROM, normal capillary refill and normal inspection; Absent tenderness Neurological Exam Neurological exam: Present alert, CN II-XII intact and oriented X3; Absent motor sensory deficit Psychiatric Psychiatric exam: Present normal affect and normal mood; Absent anxious or depressed Skin Skin exam: Present dry and intact Discharge Data Data Completed and Pending Labs on day of discharge: Labs from last 24 hours 1011/18/21 11/18/21 05:37 05:37 05:37 WBC 8.7 RBC 3.31 L Hgb 11.3 L Hct 33.6 L MCV 101.5 H MCH 34.1 H MCHC 33.6 RDW 14.9 H Plt Count 151 MPV 9.6 Immature Gran % (Auto) 1.8 H Neut % (Auto) 72.6 Lymph % (Auto) 10.7 L [place] % (Auto) 7.8 Eos % (Auto) 6.2 Baso % (Auto) 0.9 Lymph # (Auto) 0.93 L [place] # (Auto) 0.68 Eos # (Auto) 0.54 Baso # (Auto) 0.08 Immature Gran # 0.16 H Absolute Neutrophils 6.33 PT 27.8 H INR 2.5 H Sodium 135 Potassium 4.2 Chloride 96 Carbon Dioxide 33 H Anion Gap 6.0 L BUN 33 H Creatinine 1.0 GFR Calculation 68 Glucose 95 Calcium 9.1 Phosphorus 3.8 Magnesium 2.1 Total Bilirubin 0.9 AST 17 ALT 8 Alkaline Phosphatase 58 Total Protein 6.3 Albumin 3.6 Globulin 2.7 Albumin/Globulin Ratio 1.3 Discharge Plan Patient/Caregiver Discharge Instructions Activity: increase activity as tolerated Diet: Consistent Carbohydrate Prescriptions: New carvedilol [Coreg] 3.125 mg tablet 3.125 mg PO BID Qty: 60 0RF Rx Instructions: must administer with a meal/food Continued potassium chloride 10 mEq tablet extended release 20 meq PO QDAY Qty: 180 0RF Rx Instructions: every other day warfarin 5 mg tablet See Rx Instructions PO .COMPLEX Qty: 108 1RF Protocol: Dose Management Condition: Sunday Dose/Route: 7.5 mg Instruction: 1.5 x 5 mg tablets Condition: Sunday Dose/Route: 7.5 mg Instruction: 1.5 x 5 mg tablets Condition: Sunday Dose/Route: 5 mg Instruction: 1 x 5 mg tablet Condition: Sunday Dose/Route: 7.5 mg Instruction: 1.5 x 5 mg tablets Condition: Dose/Route: 5 mg Instruction: 1 x 5 mg tablet Condition: Sunday Dose/Route: 7.5 mg Instruction: 1.5 x 5 mg tablets Condition: Sunday Dose/Route: 5 mg Instruction: 1 x 5 mg tablet Protocol Text: Adjustment Start Date: Sunday10/24/21 INR Value: 2.3 INR Date: 10/24/21 Recheck Date: 11/21/21 Rx Instructions: 7.5 mg Sun,Mon,Wed,Fri; 5 mg the other 3 days diltiazem HCl 120 mg capsule,extended release 24hr 120 mg PO QAM Qty: 90 1RF pravastatin 40 mg tablet 20 mg PO Q2D allopurinol 100 mg tablet 200 mg PO QDAY Qty: 180 3RF Rx Instructions: Increased at last visit to 200 mg qd lisinopril 2.5 mg tablet 2.5 mg PO QDAY Changed furosemide 80 mg tablet 40 mg PO BID 30 Days Qty: 30 0RF Follow Up Plan Follow up with: Jaziel Joseph MD [Primary Care Provider] - Patient Disposition: Home, Self-Care Prognosis: Fair Rehab Potential: Good I certify that the patient requires SNF services: No Overall status at discharge: patient is back to baseline Discharge Orders: Discharge Order (Routine); Ordered 11/18/21 Ordered By: Douglas RODRÍGUEZ VTE Deep Vein Thrombosis/Pulmonary Embolism Present on Admission: No
== END 2021-11-18 18:51 | disposition home or self-care (01) | DRG 293 ==
LOC: ED 11:10 → MEDSUR 17:40
PROVIDERS: ADMIT Internal Medicine; ATTEND Internal Medicine

== ENCOUNTER 2023-12-15 11:55 | Inpatient (IN) ==
[2023-12-15 12:37] LABS: Basophils # (Auto) 0.09 K/mcL (0.00-0.30); Eosinophils # (Auto) 0.18 K/mcL (0.00-0.70); Hematocrit 34.1 % (40.1-51.0); Hemoglobin 10.1 g/dL (13.7-17.5); Lymphocytes # (Auto) 0.69 K/mcL (1.50-4.80); Lymphocytes % (Auto) 7.5 % (15.5-49.0); Mean Cell Volume 107.2 fL (80.0-100.0); Mean Corpuscular HGB Conc 29.6 g/dL (31.0-36.0); Mean Platelet Volume 9.4 fL (8.8-12.5); Monocytes # (Auto) 0.55 K/mcL (0.10-0.90); Neutrophils % (Auto) 81.8 % (38.0-78.0); Platelet Count 122 K/mcL (140-440); RBC 3.18 M/mcL (4.63-6.08); Red Cell Distribution Width 19.2 % (11.5-14.5); WBC 9.2 K/mcL (4.5-11.0)
[2023-12-15 12:49] LABS: ALT/SGPT 9 U/L (<40); AST/SGOT 21 U/L (<40); Albumin 4.1 gm/dL (3.2-5.2); Albumin/Globulin Ratio 1.1 (1.0-2.3); Alkaline Phosphatase 68 U/L (39-117); Bilirubin,Total 0.7 mg/dL (0.1-1.0); Blood Urea Nitrogen 29 mg/dL (8-23); Calcium 9.6 mg/dL (8.6-10.4); Carbon Dioxide 29 mmol/L (22-30); Chloride 98 mmol/L (96-108); Globulin 3.6 gm/dL (2.2-3.7); Glomerular Filtration Rate 77; Glucose 119 mg/dL (70-105); Potassium 4.5 mmol/L (3.3-5.1); Sodium 139 mmol/L (133-145)
[2023-12-15] MEDS: FUROSEMIDE 100 MG/10 ML VIAL IV ONE (14:20)
[2023-12-15] MEDS ORDERED: ALBUTEROL SULFATE 2.5 MG/3 ML NEBULIZER NEB PRN (15:44)
[2023-12-15] MEDS ORDERED: SENNOSIDES 1 TABLET PO PRN (15:44)
[2023-12-15] MEDS: POTASSIUM CHLORIDE 20 MEQ TABLET PO SCH (17:10)
[2023-12-15] MEDS: FUROSEMIDE 40 MG/4 ML VIAL IV SCH (19:10)
[2023-12-15] MEDS: 0.9 % SODIUM CHLORIDE 10 ML SYRINGE IV SCH (19:10)
[2023-12-15] MEDS: SIMVASTATIN 20 MG TABLET PO SCH (20:55)
[2023-12-15] MEDS: traZODone HCL 50 MG TABLET PO PRN (20:55)
[2023-12-15] MEDS: APIXABAN 2.5 MG TABLET PO SCH (20:55)
[2023-12-16 06:26] LABS: Basophils # (Auto) 0.09 K/mcL (0.00-0.30); Basophils % (Auto) 1.3 % (0.0-2.0); Eosinophils # (Auto) 0.25 K/mcL (0.00-0.70); Eosinophils % (Auto) 3.5 % (0.0-7.0); Hematocrit 30.4 % (40.1-51.0); Hemoglobin 8.9 g/dL (13.7-17.5); Lymphocytes # (Auto) 0.78 K/mcL (1.50-4.80); Mean Cell Volume 107.8 fL (80.0-100.0); Mean Corpuscular HGB Conc 29.3 g/dL (31.0-36.0); Mean Platelet Volume 9.6 fL (8.8-12.5); Monocytes # (Auto) 0.54 K/mcL (0.10-0.90); Monocytes % (Auto) 7.6 % (1.0-12.0); Neutrophils % (Auto) 74.8 % (38.0-78.0); Platelet Count 107 K/mcL (140-440); RBC 2.82 M/mcL (4.63-6.08); Red Cell Distribution Width 19.7 % (11.5-14.5); WBC 7.1 K/mcL (4.5-11.0)
[2023-12-16 06:28] LABS: Blood Urea Nitrogen 27 mg/dL (8-23); Calcium 8.9 mg/dL (8.6-10.4); Carbon Dioxide 36 mmol/L (22-30); Chloride 97 mmol/L (96-108); Glomerular Filtration Rate 67; Glucose 96 mg/dL (70-105); Potassium 4.2 mmol/L (3.3-5.1); Sodium 141 mmol/L (133-145)
[2023-12-16 07:12] LABS: Iron 48 ug/dL (61-157); TIBC Calculation 242 ug/dl (228-428); Transferrin % Saturation 20 % (20-50)
[2023-12-16] MEDS: CYANOCOBALAMIN (VITAMIN B-12) 500 MCG TABLET PO SCH (08:49)
[2023-12-16] MEDS: ASCORBIC ACID 500 MG TABLET PO SCH (08:49)
[2023-12-16] MEDS: acetaZOLAMIDE SOD 500 MG VIAL IV SCH (08:50)
[2023-12-16] MEDS: ALLOPURINOL 100 MG TABLET PO SCH (08:50)
[2023-12-16] MEDS: ACETAMINOPHEN 325 MG TABLET PO PRN (10:55)
[2023-12-16] MEDS: Tiotropium-Olodaterol [Stiolto Respimat] 2.5-2.5 INH SCH (14:55)
[2023-12-16] MEDS: FUROSEMIDE 40 MG/4 ML VIAL IV SCH (15:52)
[2023-12-17 06:55] LABS: Basophils # (Auto) 0.09 K/mcL (0.00-0.30); Basophils % (Auto) 1.1 % (0.0-2.0); Eosinophils # (Auto) 0.26 K/mcL (0.00-0.70); Eosinophils % (Auto) 3.2 % (0.0-7.0); Hematocrit 29.4 % (40.1-51.0); Hemoglobin 8.6 g/dL (13.7-17.5); Lymphocytes # (Auto) 0.68 K/mcL (1.50-4.80); Lymphocytes % (Auto) 8.3 % (15.5-49.0); Mean Cell Volume 108.1 fL (80.0-100.0); Mean Corpuscular HGB Conc 29.3 g/dL (31.0-36.0); Mean Platelet Volume 9.8 fL (8.8-12.5); Monocytes # (Auto) 0.53 K/mcL (0.10-0.90); Monocytes % (Auto) 6.5 % (1.0-12.0); Neutrophils % (Auto) 79.2 % (38.0-78.0); Platelet Count 109 K/mcL (140-440); RBC 2.72 M/mcL (4.63-6.08); Red Cell Distribution Width 19.3 % (11.5-14.5); WBC 8.2 K/mcL (4.5-11.0)
[2023-12-17 07:03] LABS: Blood Urea Nitrogen 25 mg/dL (8-23); Carbon Dioxide 33 mmol/L (22-30); Chloride 97 mmol/L (96-108); Glomerular Filtration Rate 77; Glucose 99 mg/dL (70-105); Potassium 3.9 mmol/L (3.3-5.1); Sodium 139 mmol/L (133-145)
[2023-12-17] MEDS: POLYETHYLENE GLYCOL 3350 17 GM PACKET PO PRN (15:56)
[2023-12-18 05:52] LABS: Basophils # (Auto) 0.08 K/mcL (0.00-0.30); Eosinophils # (Auto) 0.28 K/mcL (0.00-0.70); Eosinophils % (Auto) 3.7 % (0.0-7.0); Hematocrit 30.5 % (40.1-51.0); Hemoglobin 9.1 g/dL (13.7-17.5); Lymphocytes # (Auto) 0.81 K/mcL (1.50-4.80); Lymphocytes % (Auto) 10.6 % (15.5-49.0); Mean Cell Volume 106.6 fL (80.0-100.0); Mean Corpuscular HGB Conc 29.8 g/dL (31.0-36.0); Mean Platelet Volume 9.5 fL (8.8-12.5); Monocytes # (Auto) 0.57 K/mcL (0.10-0.90); Monocytes % (Auto) 7.5 % (1.0-12.0); Neutrophils % (Auto) 75.5 % (38.0-78.0); Platelet Count 107 K/mcL (140-440); RBC 2.86 M/mcL (4.63-6.08); Red Cell Distribution Width 19.2 % (11.5-14.5); WBC 7.7 K/mcL (4.5-11.0)
[2023-12-18 06:03] LABS: Blood Urea Nitrogen 26 mg/dL (8-23); Carbon Dioxide 33 mmol/L (22-30); Chloride 98 mmol/L (96-108); Glomerular Filtration Rate 67; Glucose 96 mg/dL (70-105); Potassium 3.9 mmol/L (3.3-5.1); Sodium 139 mmol/L (133-145)
[2023-12-18 08:47] VITALS: TEMP 98.8
[2023-12-18 10:42] VITALS: O2SAT 96
== END 2023-12-18 11:49 | disposition home health service (06) | DRG 291 ==
LOC: ED 11:55 → ICU 15:40
PROVIDERS: ADMIT Internal Medicine; ATTEND Internal Medicine